=== PATIENT | male | born 1965 | race Caucasian/White ===

== ENCOUNTER 2021-01-18 13:58 | Outpatient (REF) | payer OTHER, SELFPAY | END 2021-01-18 13:59 | disposition home or self-care (01) | LOC: HO.LNP 13:58 | PROVIDERS: Visit Provider Hospitalist | DX: Z20.822 Contact with and (suspected) exposure to COVID-19 (principal); B34.9 Viral infection, unspecified | CPT/HCPCS: U0003; U0005 ==

== ENCOUNTER 2021-03-10 15:47 | Outpatient (REF) | payer OTHER, SELFPAY ==
[2021-03-10 16:37] LABS: MANUAL DIFF FLAG NO
[2021-03-10 17:02] LABS: Basophils Absolute Auto 0.1 X10*3/uL (0.0-0.2); Basophils Percent Auto 0.6 % (0-2); Eosinophils Absolute Auto 0.1 X10*3/uL (0.0-0.4); Eosinophils Percent Auto 1.7 % (0-4); Hematocrit 45.1 % (42-52); Hemoglobin 15.3 g/dl (14.0-18.0); Imm Gran Abs Auto 0.02 X10*3/uL (0.00-0.03); Imm Gran Pct Auto 0.2 % (0.0-0.4); Lymphocytes Absolute Auto 1.9 X10*3/uL (1.2-4.9); Lymphocytes Percent Auto 23.6 % (20-40); Mean Corpuscular HGB Conc 33.9 g/dl (31.0-36.0); Mean Corpuscular Hemoglobin 30.3 pg (27.0-33.0); Mean Corpuscular Volume 89.3 fL (80-98); Mean Platelet Volume 8.8 fL (9.4-12.4); Monocytes Absolute Auto 0.8 X10*3/uL (0.1-1.2); Neutrophils Absolute Auto 5.1 X10*3/uL (2.0-8.3); Neutrophils Percent Auto 63.9 % (45-73); Platelet Count 260 X10*3/uL (160-400); Red Blood Count 5.05 X10*6/uL (4.60-5.80); Red Cell Distribution Width 11.9 % (11.0-16.0)
[2021-03-10 17:26] LABS: Alanine Aminotransferase 21 U/L (0-40); Albumin Level 4.5 g/dL (3.5-5.0); Alkaline Phosphatase 56 U/L (39-117); Amylase 63 U/L (28-100); Anion Gap 11 (12-20); Aspartate Amino Transferase 24 U/L (5-37); Bilirubin Total 0.5 mg/dL (0.0-1.0); Blood Urea Nitrogen 14 mg/dL (9-16); Calcium 9.6 mg/dL (8.4-10.2); Carbon Dioxide 28 mmol/L (22-29); Chloride 102 mmol/L (96-108); Estimated Glomerular Filt Rate > 60; Glucose Random 103 mg/dL (60-115); Lipase 24 U/L (8-78); Potassium 4.1 mmol/L (3.3-5.1); Sodium 137 mmol/L (135-145); Total Protein 7.6 g/dL (6.5-8.0)
== END 2021-03-10 15:48 | disposition home or self-care (01) ==
LOC: HO.LAB 15:47
PROVIDERS: PCP Nurse Practitioner Family; Referring Provider Nurse Practitioner Family; Visit Provider Nurse Practitioner
DX: R10.13 Epigastric pain (principal); R14.0 Abdominal distension (gaseous)
CPT/HCPCS: 36415; 80053; 82150; 83690; 85025

== ENCOUNTER 2021-03-12 08:24 | Outpatient (REF) | payer OTHER, SELFPAY | END 2021-03-12 08:25 | disposition home or self-care (01) | LOC: HO.LNP 08:24 | PROVIDERS: Visit Provider Nurse Practitioner | DX: R10.13 Epigastric pain (principal) | CPT/HCPCS: 87338 ==

== ENCOUNTER 2021-03-31 08:15 | Outpatient (REF) | payer OTHER, SELFPAY ==
--- NOTE | ~2021-03-31 | US_ITS ---
EXAMINATION: US ABDOMEN COMPLETE CLINICAL INFORMATION: Epigastric pain. COMPARISON: Ultrasound abdomen 02/24/[address] of the abdomen and pelvis February 2019. TECHNIQUE: Real-time imaging of the abdominal viscera. FINDINGS: PANCREAS: Not well visualized due to bowel gas ABDOMINAL AORTA: The proximal, mid, and distal segments are normal in caliber. INFERIOR VENA CAVA: Visualized portions are normal. LIVER: Normal. The liver is normal in size. The liver contour is normal. Parenchymal echogenicity is normal. No focal hepatic lesion. There is no intrahepatic biliary duct dilatation seen. GALLBLADDER: Normal. The gallbladder is physiologically distended without evidence of stones, sludge, polyps, wall thickening or pericholecystic fluid. COMMON BILE DUCT: Normal in caliber measuring 0.3 cm in diameter. RIGHT KIDNEY: There is a small cyst exophytic to the midpole measuring 9 x 5 x 8 mm. No hydronephrosis or renal calculi. The kidney measures 11.4 cm in maximum dimension. LEFT KIDNEY: Normal. No hydronephrosis. No renal calculi or focal parenchymal lesions. The kidney measures 12.0 cm in maximum dimension. SPLEEN: Normal. The spleen measures 10.1 cm in maximum dimension. FREE FLUID: None. US/US abdomen complete IMPRESSION: Small right renal cyst otherwise unremarkable exam
== END 2021-03-31 08:16 | disposition home or self-care (01) ==
LOC: HO.US 08:15
PROVIDERS: PCP Nurse Practitioner Family; Visit Provider Nurse Practitioner
DX: R10.13 Epigastric pain (principal)
CPT/HCPCS: 76700

== ENCOUNTER → 2021-04-18 15:53 | Outpatient (BNVA) | payer OTHER, SELFPAY | PROVIDERS: PCP Nurse Practitioner Family; Visit Provider Nurse Practitioner ==

== ENCOUNTER 2021-05-12 05:58 | Outpatient (REF) | payer OTHER, SELFPAY ==
[2021-05-12 11:24] LABS: Appearance Urine CLEAR; Color Urine YELLOW; Glucose Urine UA NEG (NEG); Leukocyte Esterase Urine NEG (NEG); Nitrite Urine NEG (NEG); Specific Gravity - Urine 1.025 (1.005-1.025); UACC Culture Trigger NO; Urine Blood TRACE (NEG); Urine Ketones NEG (NEG); Urine Protein NEG (NEG-TRACE)
[2021-05-12 12:11] LABS: TSH reflex Free T4 1.85 uIU/mL (0.32-4.0)
[2021-05-12 12:26] LABS: Alanine Aminotransferase 25 U/L (0-40); Albumin Level 4.2 g/dL (3.5-5.0); Alkaline Phosphatase 56 U/L (39-117); Anion Gap 10 (12-20); Aspartate Amino Transferase 26 U/L (5-37); Bilirubin Total 0.7 mg/dL (0.0-1.0); Blood Urea Nitrogen 15 mg/dL (9-16); Calcium 9.5 mg/dL (8.4-10.2); Carbon Dioxide 26 mmol/L (22-29); Chloride 106 mmol/L (96-108); Cholesterol 221 mg/dL; Estimated Glomerular Filt Rate > 60; Glucose Fasting 98 mg/dL (60-99); HDL Cholesterol 51 mg/dL; LDL Cholesterol Calculated 143 mg/dl; Potassium 4.3 mmol/L (3.3-5.1); Sodium 138 mmol/L (135-145); Triglycerides 136 mg/dL
[2021-05-12 12:48] LABS: Prostate Specific Antigen Scr 0.36 ng/mL (<0.05-4.0)
[2021-05-12 13:27] LABS: RBC Urine 0-2 /HPF (0); WBC Urine 0 /HPF (0-4)
== END 2021-05-12 05:59 | disposition home or self-care (01) ==
LOC: HO.HMGCLDS 05:58
PROVIDERS: PCP Nurse Practitioner Family; Visit Provider Nurse Practitioner Family
DX: Z00.00 Encounter for general adult medical examination without abnormal findings (principal); Z12.5 Encounter for screening for malignant neoplasm of prostate
CPT/HCPCS: 36415; 80053; 80061; 81001; 84153; 84443

== ENCOUNTER 2022-02-14 09:51 | Outpatient (REF) | payer OTHER, SELFPAY ==
--- NOTE | ~2022-02-14 | XR_ITS ---
EXAMINATION: XR CERVICAL SPINE CLINICAL INFORMATION: M50.90 - Cervical disc disorder, unspecified, unspecified cervical region COMPARISON: None. TECHNIQUE: 3 views of the cervical spine were obtained. FINDINGS: There is mild straightening cervical lordosis. Vertebral bodies are normal in height. The odontoid appears intact. There is no cervical vertebral compression, spondylolisthesis, or prevertebral soft tissue swelling. There are mild degenerative disc changes C5-C6 and C6-C7 with mild disc narrowing. Partially bridging anterior osteophytes are present at this level and borderline posterior osteophytes. No erosive change. No perched facet. XR/XR cervical spine 3V IMPRESSION: Degenerative disc changes C5-C6 and C6-C7.
== END 2022-02-14 09:52 | disposition home or self-care (01) ==
LOC: HO.HMGCX 09:51
PROVIDERS: PCP Nurse Practitioner Family; Visit Provider Nurse Practitioner Family
DX: M50.90 Cervical disc disorder, unspecified, unspecified cervical region (principal)
CPT/HCPCS: 72040

== ENCOUNTER 2022-04-13 11:00 | Outpatient (RCR) | payer OTHER, SELFPAY ==
--- NOTE | 2022-03-07 18:45 | MHC.PT.EP ---
[facility] [place] Office [place] Office [place] Office [address] [phone] F: [phone] F: [phone] F: [phone] F: [phone] Physical Therapy Plan of Care Date of Evaluation: Date of Surgery: Diagnosis: Cervical disc disorder. 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 Pt is deemed an appropriate candidate to receive skilled PT in order to address his physical limitations to improve his functional ability. Frequency and Duration: The patient will be seen 2 x / wk x 5 wks . Short Term Goals: Initiate HEP. Centralized symptoms achieved. 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 Pt will no longer be disturbed of sleep d/t cervical pain; initial 2-3 hours disturbed. symmetrical cervical rotation achieved. Pt will report I am able to do my normal work but no more ; initial: I cannot perform my normal work tasks . (NDI) Treatment Plan: Modalities to reduce pain, spasms and effusion. Manual therapy to restore motion and function. Therapeutic exercise to improve strength and flexibility. Neuromuscular re-education for posture and balance. Therapeutic activities to return to functional activities of daily living. Electronically signed by: Anatoliy Segura PT. Please sign and return to therapist. Thank you for your referral.
--- NOTE | 2022-04-13 13:51 | MHC.PT.DC ---
[facility] [place] Office [place] Office [place] Office [address] Bk [address] [phone] F: [phone] F: [phone] F: [phone] F: [phone] Physical Therapy Discharge Report Diagnosis: Cervical disc disorder. Date of Surgery: Date of Evaluation: 03/07/22 Date of Discharge: 04/13/22 Treatments to Date: 10 Cancellations to Date: No Shows to Date: Discharge Status: Achieved Goals Improved Function Independent with HEP Discharge Summary: 04/13: Ramin has been an active participant in his therapy in and out of the clinic. He is in agreement with DC at this time as his cervical and radicular symptoms, as well as MORALES symptoms have all been abolished for the past few weeks. His neck outcome measure improved from 44% disability to 4%. Note: although L arm radicular symptoms have been abolished as well as his scapular pain he does continue to report popping/clicking and a sense of instability likely not related to his cervical issue which he may seek medical management for in the future. Electronically signed by: Anatoliy Segura PT. Please sign and return to therapist. Thank you for your referral.
== END 2022-04-13 13:52 | disposition home or self-care (01) ==
LOC: HO.PTCHIC 11:00
PROVIDERS: PCP Nurse Practitioner Family; Visit Provider Nurse Practitioner Family
DX: M50.90 Cervical disc disorder, unspecified, unspecified cervical region (principal)
CPT/HCPCS: 97110; 97161

== ENCOUNTER 2022-06-27 07:04 | Outpatient (REF) | payer OTHER, SELFPAY ==
[2022-06-27 11:27] LABS: Urine Cytology See Pathology rpt
[2022-06-27 11:35] LABS: Appearance Urine Clear; Color Urine Yellow; Glucose Urine UA Negative (Negative); Leukocyte Esterase Urine Negative (Negative); Nitrite Urine Negative (Negative); PH 5.5 (5.0-9.0); Specific Gravity - Urine 1.015 (1.005-1.025); Urine Blood Negative (Negative); Urine Ketones Negative (Negative); Urine Protein Negative (Neg-Trace)
[2022-06-27 11:39] LABS: MANUAL DIFF FLAG NO
[2022-06-27 11:54] LABS: Basophils Percent Auto 0.6 % (0-2); Eosinophils Absolute Auto 0.1 X10*3/uL (0.0-0.4); Eosinophils Percent Auto 1.7 % (0-4); Hematocrit 44.6 % (42.0-52.0); Hemoglobin 15.2 g/dl (14.0-18.0); Imm Gran Abs Auto 0.01 X10*3/uL (0.00-0.03); Imm Gran Pct Auto 0.2 % (0.0-0.4); Lymphocytes Absolute Auto 2.3 X10*3/uL (1.2-4.9); Lymphocytes Percent Auto 35.5 % (20-40); Mean Corpuscular HGB Conc 34.1 g/dl (31.0-36.0); Mean Corpuscular Hemoglobin 30.3 pg (27.0-33.0); Mean Platelet Volume 9.6 fL (9.4-12.4); Monocytes Absolute Auto 0.5 X10*3/uL (0.1-1.2); Monocytes Percent Auto 8.4 % (2-11); Neutrophils Absolute Auto 3.4 x10*3/uL (2.0-8.3); Neutrophils Percent Auto 53.6 % (45-73); Platelet Count 224 X10*3/uL (160-400); Red Blood Count 5.01 X10*6/uL (4.60-5.80); Red Cell Distribution Width 12.9 % (11.0-16.0); White Blood Count 6.3 X10*3/uL (4.8-10.8)
[2022-06-27 12:23] LABS: Alanine Aminotransferase 27 U/L (0-40); Albumin Level 4.3 g/dL (3.5-5.0); Alkaline Phosphatase 61 U/L (39-117); Anion Gap 13 (12-20); Aspartate Amino Transferase 30 U/L (5-37); Bilirubin Total 0.5 mg/dL (0.0-1.0); Blood Urea Nitrogen 11 mg/dL (9-16); Calcium 9.5 mg/dL (8.4-10.2); Carbon Dioxide 25 mmol/L (22-29); Chloride 106 mmol/L (96-108); Cholesterol 262 mg/dL; Estimated Glomerular Filt Rate > 60; Glucose Fasting 91 mg/dL (60-99); HDL Cholesterol 51 mg/dL; LDL Cholesterol Calculated 182 mg/dl; Potassium 4.1 mmol/L (3.3-5.1); Sodium 140 mmol/L (135-145); Total Protein 7.3 g/dL (6.5-8.0); Triglycerides 148 mg/dL
[2022-06-27 12:27] LABS: Prostate Specific Antigen Scr 0.25 ng/mL (<0.05-4.0); TSH reflex Free T4 4.55 uIU/mL (0.32-4.0)
[2022-06-27 13:05] LABS: Free T4 (Free Thyroxine) 1.11 ng/dL (0.71-1.85)
== END 2022-06-27 07:05 | disposition home or self-care (01) ==
LOC: HO.HMGCLDS 07:04
PROVIDERS: PCP Nurse Practitioner Family; Visit Provider Nurse Practitioner Family
DX: Z00.00 Encounter for general adult medical examination without abnormal findings (principal); Z12.5 Encounter for screening for malignant neoplasm of prostate; R31.29 Other microscopic hematuria
CPT/HCPCS: 36415; 80053; 80061; 81003; 84153; 84439; 84443; 85025; 87086; 88112

== ENCOUNTER 2022-08-31 06:30 | Outpatient (REF) | payer OTHER, SELFPAY ==
[2022-08-31 12:12] LABS: Cholesterol 202 mg/dL; HDL Cholesterol 50 mg/dL; LDL Cholesterol Calculated 122 mg/dl; Triglycerides 154 mg/dL
[2022-08-31 12:29] LABS: TSH reflex Free T4 2.61 uIU/mL (0.32-4.0)
[2022-09-02 03:34] LABS: Thyroid Peroxidase Antibodies >900 IU/mL (<9)
== END 2022-08-31 06:31 | disposition home or self-care (01) ==
LOC: HO.HMGCLDS 06:30
PROVIDERS: PCP Nurse Practitioner Family; Visit Provider Nurse Practitioner Family
DX: R79.89 Other specified abnormal findings of blood chemistry (principal); E78.9 Disorder of lipoprotein metabolism, unspecified
CPT/HCPCS: 36415; 80061; 84443; 86376

== ENCOUNTER 2022-10-16 15:28 | Outpatient (REF) | payer OTHER, SELFPAY ==
--- NOTE | ~2022-10-16 | XR_ITS ---
EXAMINATION: XR FINGER, LEFT CLINICAL INFORMATION: Effusion COMPARISON: None available. TECHNIQUE: Three views of the left fourth finger. FINDINGS: Bone alignment is normal. No fracture or dislocation. Normal joint spaces. Soft tissue swelling adjacent to the PIP joint. XR/XR finger LT min 2V IMPRESSION: Soft tissue swelling. No fracture or dislocation.
== END 2022-10-16 15:29 | disposition home or self-care (01) ==
LOC: HO.HMGCX 15:28
PROVIDERS: PCP Nurse Practitioner Family; Visit Provider Nurse Practitioner Family
DX: M25.442 Effusion, left hand (principal); T14.8XXA Other injury of unspecified body region, initial encounter; X58.XXXA Exposure to other specified factors, initial encounter; Y93.9 Activity, unspecified; Y92.9 Unspecified place or not applicable; Y99.9 Unspecified external cause status
CPT/HCPCS: 73140

== ENCOUNTER 2022-12-25 08:41 | Outpatient (AMB) | payer OTHER, SELFPAY ==
[2022-12-25 08:44] VITALS: BP 110/70; PULSE 62; O2SAT 98; BMI 27.4
--- NOTE | 2022-12-25 08:44 | A.OFFPC_ITS ---
Vital Signs 12/25/22 08:44 Height 5 ft 9 in Weight 185 lb 8 oz BMI 27.4 BP 110/70 Blood Pressure Location Lt brachial Position Sitting Pulse 62 Pulse Source Pulse Oximeter Pulse Oximetry (%) 98 Oxygen Delivery Method Room Air Intake Visit Reasons: 6m follow up Allergies statins Adverse Reaction (Intermediate, Uncoded 12/25/22 08:48) Muscle aches Medication List - Last Reconciled 12/25/22 by STIVEN Felix cholecalciferol (vitamin D3) 50 mcg PO DAILY colesevelam (WelChol) 1,250 mg (2 x 625 mg) PO BID 90 days ezetimibe 10 mg PO DAILY ibuprofen 800 mg PO TID PRN 30 days lisinopril 40 mg PO DAILY 90 days Tobacco use date assessed: 12/25/22 Dental Screening Dental Screen Date: 12/25/22 Did you have a dental visit in the last 12 months?: Yes Did you have a dental problem in the last 6 months where you did not have access to dental care?: No Was dental information given to patient?: Patient has dentist HPI 6m follow up HPI Details Pt reports ongoing left chest discomfort. He reports that this is intermittent. Pt reports that when he stretches the pain is worse. He denies any radicular symptoms. EKG in office today was benign. Will order echo and nuclear stress test. Denies shortness of breath, headache, and dizziness. Pt c/o joint pain and swelling in his bilat hands. Will order xr's and labs (autoimmune/inflammatory markers). Dyslipidemia: Will order labs. Hx of elevated TSH, will order labs to watch this (+ antibodies). PFSH Medical History Chronic pain High cholesterol Surgical History H/O colonoscopy Social History Housing: House Patient Tobacco Use Status: Former Tobacco user Years Smoked: 30 years ago e-Cigarette/Vaping Use: Never Used Second Hand Smoke Exposure: No service: No Current occupational status: employed and unemployed Current occupational exposures/hazards: No Cognitive needs: No Hearing needs: No Vision needs: No Questionnaire Thrive Questionnaire Date Thrive assessed: 06/21/22 EFREN-7 AMB Questionnaire EFREN-7 Date EFREN - 7 assessed: 06/21/22 Source: Developed by Drs. Gigi Chapman, Danii Erazo, Regis Urbina and colleagues, with an educational rosa from [employer]. Review of Systems Const Reports as per HPI Physical exam (Primary Care) Vital Signs: Last Vital Signs Pulse 62 12/25/22 08:44 BP 110/70 12/25/22 08:44 Pulse Ox 98 12/25/22 08:44 Oxygen Delivery Method Room Air 12/25/22 08:44 BMI result Body Mass Index 27.4 Tobacco/Smoking Status: Tobacco use Status Tobacco use date assessed 12/25/22 12/25/22 08:51 Patient Tobacco Use Status Former Tobacco user 12/25/22 08:51 e-Cigarette/Vaping Use Never Used 12/25/22 08:51 Thrive Assessment: Date of Thrive Assessment Date Thrive assessed 06/21/22 12/25/22 08:51 Const General: cooperative Orientation/consciousness: patient oriented x3 Resp Effort & Inspection: normal respiratory effort Auscultation: clear to auscultation bilaterally Cardio Rate: regular rate Rhythm: regular rhythm Heart sounds: S1 normal heart sound present and S2 normal heart sound present Neuro General: patient oriented x3 Extrem Other: PIP joints of bilat hands swollen. able to flex and extend all fingers with some discomfort to PIP joints Psych Appearance: grossly normal Mental Status: mental status grossly normal Speech and movement: Normal speech and movement present Affect: normal affect Attitude: cooperative Thought process: Normal thought process present Thought content: Normal thought content present Insight: Good insight present (Psych) Judgement: Good judgement present (Psych) Assessment and Plan Assessment & Plan (1) Chest discomfort: Code(s): R07.89 - Other chest pain Plan: Echo and stress test ordered (2) Elevated TSH: Code(s): R79.89 - Other specified abnormal findings of blood chemistry Plan: Labs ordered (3) Joint pain in fingers of both hands: Code(s): M25.541 - Pain in joints of right hand; M25.542 - Pain in joints of left hand Plan: Labs and xr's ordered (4) Lipid disorder: Code(s): E78.9 - Disorder of lipoprotein metabolism, unspecified Plan: Labs ordered Plan The patient agreed to the use of a clinical laboratory medical director for this encounter. [facility] by Thalia Santiago clinical laboratory medical director, on 12/25/2022 at 08:55 EST. Orders: Orders CA echo transthoracic complete Today R07.89 - Other chest pain CA stress test Today R07.89 - Other chest pain NM cardiolite stress test Today R07.89 - Other chest pain Comprehensive Met. Panel Today R79.89 - Other specified abnormal findings of blood chemistry TSH reflex Free T4 Today R79.89 - Other specified abnormal findings of blood chemistry UA CC w/rflx Micro + Cult Today R79.89 - Other specified abnormal findings of blood chemistry Cyclic Citrullinated Peptide Today M25.541 - Pain in joints of right hand, M25.542 - Pain in joints of left hand C Reactive Protein Today M25.541 - Pain in joints of right hand, M25.542 - Pain in joints of left hand Rheumatoid Factor Today M25.541 - Pain in joints of right hand, M25.542 - Pain in joints of left hand Erythrocyte Sedimentation Rate Today M25.541 - Pain in joints of right hand, M25.542 - Pain in joints of left hand SERA Reflex Titer and Pattern Today M25.541 - Pain in joints of right hand, M25.542 - Pain in joints of left hand Sjogren's Antibodies Today M25.541 - Pain in joints of right hand, M25.542 - Pain in joints of left hand XR hand LT 2V Today M25.541 - Pain in joints of right hand, M25.542 - Pain in joints of left hand XR hand RT 2V Today M25.541 - Pain in joints of right hand, M25.542 - Pain in joints of left hand Lipid Panel Today E78.9 - Disorder of lipoprotein metabolism, unspecified Tick-borne Disease Molecular Today M25.541 - Pain in joints of right hand, M25.542 - Pain in joints of left hand Medications: Refilled ezetimibe 10 mg PO DAILY 90 tabs 1RF colesevelam (WelChol) 1,250 mg (2 x 625 mg) PO BID 360 tabs 0RF 90 days Coding Level of Care Code Est Pt Level 3 (30576) Diagnoses Chest discomfort R07.89 Elevated TSH R79.89 Joint pain in fingers of both hands M25.541; M25.542 Lipid disorder E78.9
== END 2022-12-25 12:45 | disposition home or self-care (01) ==
PROVIDERS: Visit Provider Nurse Practitioner Family
DX: R07.89 Other chest pain (principal); R79.89 Other specified abnormal findings of blood chemistry; M25.541 Pain in joints of right hand; M25.542 Pain in joints of left hand; E78.9 Disorder of lipoprotein metabolism, unspecified
CPT/HCPCS: 99213

== ENCOUNTER 2023-01-08 06:06 | Outpatient (REF) | payer OTHER, SELFPAY ==
--- NOTE | ~2023-01-08 | XR_ITS ---
EXAMINATION: XR BILATERAL HANDS CLINICAL INFORMATION: Bilateral hand pain in joints of hand COMPARISON: 10/16/2022 left fourth digit TECHNIQUE: PA, oblique and lateral views of bilateral hands FINDINGS: LEFT HAND: Moderate degenerative changes first carpometacarpal joint with joint space narrowing and hypertrophic change. Bone mineralization is normal. Mild hypertrophic change in scattered IP joints. RIGHT HAND: Moderate degenerative changes first carpometacarpal joint with joint space narrowing and hypertrophic change. Bone mineralization is normal. Mild hypertrophic change in scattered IP joints. XR/XR hand LT 2V IMPRESSION: Moderate degenerative changes in the bilateral first carpometacarpal joints. Mild hypertrophic change in scattered bilateral IP joints. Recommend follow-up imaging in 10-14 days if fracture is suspected.
--- NOTE | ~2023-01-08 | XR_ITS ---
EXAMINATION: XR BILATERAL HANDS CLINICAL INFORMATION: Bilateral hand pain in joints of hand COMPARISON: 10/16/2022 left fourth digit TECHNIQUE: PA, oblique and lateral views of bilateral hands FINDINGS: LEFT HAND: Moderate degenerative changes first carpometacarpal joint with joint space narrowing and hypertrophic change. Bone mineralization is normal. Mild hypertrophic change in scattered IP joints. RIGHT HAND: Moderate degenerative changes first carpometacarpal joint with joint space narrowing and hypertrophic change. Bone mineralization is normal. Mild hypertrophic change in scattered IP joints. XR/XR hand RT 2V IMPRESSION: Moderate degenerative changes in the bilateral first carpometacarpal joints. Mild hypertrophic change in scattered bilateral IP joints. Recommend follow-up imaging in 10-14 days if fracture is suspected.
[2023-01-08 11:55] LABS: Appearance Urine Turbid; Color Urine Dark Yellow; Glucose Urine UA Negative (Negative); Leukocyte Esterase Urine Negative (Negative); Nitrite Urine Negative (Negative); PH 5.5 (5.0-9.0); UMIC TRIGGER UACC YES; Urine Blood Trace (Negative); Urine Ketones Trace mg/dL (Negative); Urine Protein Negative (Neg-Trace)
[2023-01-08 11:58] LABS: Bacteria Urine None Seen (None Seen); Hyaline Casts Urine 0-2 /LPF (0-2); Squamous Epithelial Cell Urine 0-2 /HPF (0-2); WBC Urine 0-5 /HPF (0-5)
[2023-01-08 12:51] LABS: Alanine Aminotransferase 26 U/L (0-40); Albumin Level 4.3 g/dL (3.5-5.0); Alkaline Phosphatase 60 U/L (39-117); Anion Gap 11 (12-20); Aspartate Amino Transferase 24 U/L (5-37); Bilirubin Total 0.9 mg/dL (0.0-1.0); Blood Urea Nitrogen 12 mg/dL (9-16); C Reactive Protein < 0.10 mg/dL (< or = 0.50); Calcium 9.9 mg/dL (8.4-10.2); Carbon Dioxide 26 mmol/L (22-29); Chloride 107 mmol/L (96-108); Cholesterol 212 mg/dL; Estimated Glomerular Filt Rate > 60; Glucose Random 103 mg/dL (60-115); HDL Cholesterol 47 mg/dL; LDL Cholesterol Calculated 134 mg/dl; Potassium 4.1 mmol/L (3.3-5.1); Sodium 140 mmol/L (135-145); Total Protein 7.7 g/dL (6.5-8.0); Triglycerides 156 mg/dL
[2023-01-08 12:55] LABS: TSH reflex Free T4 2.95 uIU/mL (0.32-4.0)
[2023-01-08 13:01] LABS: Erythrocyte Sedimentation Rate 2 MM/HR (0-15)
[2023-01-08 13:25] LABS: Rheumatoid Factor < 13.0 IU/mL (<15.0)
[2023-01-09 11:29] LABS: Cyclic Citrullinated Peptide <16 UNITS
[2023-01-09 18:23] LABS: Antibody to SS-A Antigen <1.0 NEG AI (<1.0 NEG); Antibody to SS-B Antigen <1.0 NEG AI (<1.0 NEG)
[2023-01-09 23:48] LABS: A. Phagocytphilium DNA,RT-PCR NOT DETECTED (NOT DETECTED); Babesia Microti DNA, RT-PCR NOT DETECTED (NOT DETECTED); Borrelia Miyamotoi,DNA RT-PCR NOT DETECTED (NOT DETECTED); E.Chaffeensis DNA RT-PCR NOT DETECTED (NOT DETECTED); Lyme(Borrelia ssp)DNA RT-PCR NOT DETECTED (NOT DETECTED)
[2023-01-12 13:18] LABS: Anti Nuclear Antibody Screen NEGATIVE (NEGATIVE)
== END 2023-01-08 06:07 | disposition home or self-care (01) ==
LOC: HO.HMGCX 06:06
PROVIDERS: PCP Nurse Practitioner Family; Visit Provider Nurse Practitioner Family
DX: M25.541 Pain in joints of right hand (principal); M25.542 Pain in joints of left hand; R79.89 Other specified abnormal findings of blood chemistry; E78.9 Disorder of lipoprotein metabolism, unspecified
CPT/HCPCS: 36415; 73120; 80053; 80061; 81001; 84443; 85652; 86038; 86140; 86200; 86235; 86431; 87798; 87801

== ENCOUNTER 2023-01-17 15:16 | Outpatient (REF) | payer OTHER, SELFPAY ==
--- NOTE | ~2023-01-17 | US_ITS ---
EXAMINATION: US RETROPERITONEAL COMPLETE (RENAL) CLINICAL INFORMATION: Microscopic hematuria. COMPARISON: Ultrasound abdomen complete 03/31/2021 and 02/24/2019. CT abdomen and pelvis 03/26/2019. TECHNIQUE: Real-time imaging of the kidneys and bladder. FINDINGS: RIGHT KIDNEY: 11.9 x 6.2 x 6.8 cm (SAG x AP x TRV). The kidney is normal in size, contour, and echogenicity. Renal cortical thickness is normal. No calculi or focal parenchymal lesions. No hydronephrosis. LEFT KIDNEY: 11.2 x 6.8 x 6.4 cm (SAG x AP x TRV). The kidney is normal in size, contour, and echogenicity. Renal cortical thickness is normal. No calculi or focal parenchymal lesions. No hydronephrosis. BLADDER: The bladder wall is mildly thickened and trabeculated. Bilateral ureteral jets are demonstrated. Prevoid bladder volume is 198 mL. Postvoid bladder volume is 36.8 mL. Prostate volume 24.2 mL. US/US retroperitoneal comp IMPRESSION: 1. Normal-appearing kidneys. 2. Mildly thickened trabeculated bladder wall.
== END 2023-01-17 15:17 | disposition home or self-care (01) ==
LOC: HO.HMGCX 15:16
PROVIDERS: Visit Provider Nurse Practitioner Family
DX: R31.29 Other microscopic hematuria (principal)
CPT/HCPCS: 76770

== ENCOUNTER 2023-02-09 12:22 | Outpatient (AMB) | payer OTHER, SELFPAY ==
[2023-02-09 12:36] VITALS: BP 130/72; PULSE 65; TEMP 36.1; O2SAT 95; BMI 27.1
--- NOTE | 2023-02-09 12:36 | MHC.OFFWIV ---
Intake Vital Signs 02/09/23 12:36 Height 5 ft 9 in Weight 83.234 kg BMI 27.1 BP 130/72 Blood Pressure Location Rt brachial Position Sitting Pulse 65 Pulse Source Pulse Oximeter Temp 96.9 F Temp Source Temporal Artery Scan Pulse Oximetry (%) 95 Oxygen Delivery Method Room Air Intake Visit Reasons: EST/right foot bump on big toe Intake Note: Pt is here c/o right foot pain. Pt states he has a bump on his big toe. Patient Tobacco Use Status: Former Tobacco user Allergies statins Adverse Reaction (Intermediate, Uncoded 02/09/23 12:36) Muscle aches HPI HPI Comments History of Present Illness Details 1300 57-year-old male presents with discomfort to right tell intermittently for the past month, he reports he feels like there may be a bump to his right great toe, atraumatic in nature. Sore feeling intermittently however feels fine now he just wanted to get checked out. He reports he has arthritis everywhere. And bone spurs. He is not sure if he has went to his toe. Denies fevers, chills, numbness, tingling. Physical exam benign Likely arthritis versus inflammatory arthritis. Unlikely gout, pseudogout, septic joint. Unlikely fracture, dislocation Plan imaging ortho consult if necessary. Educated patient on diagnosis and treatment plan, answered all question, patient verbalizes understanding. At this time patient will be discharged home, advised to return with new or worsening symptoms. Educated on worrisome signs and symptoms and when to return. At this time I feel comfortable discharge home. PFSH Medical History Chronic pain High cholesterol Surgical History H/O colonoscopy Social History Housing: House Patient Tobacco Use Status: Former Tobacco user Years Smoked: 30 years ago e-Cigarette/Vaping Use: Never Used Second Hand Smoke Exposure: No service: No Current occupational status: employed and unemployed Current occupational exposures/hazards: No Cognitive needs: No Hearing needs: No Vision needs: No Review of Systems Const Details: Constitutional : No Weight loss, No Fever, No Chills, No Fatigue, No Malaise ENT/Mouth : No sore throat, No Rhinorrhea Eyes: No Eye Pain, No Swelling, No Redness Cardiovascular : No Chest Pain, No SOB, No Dyspnea on Exertion, No Orthopnea, No Edema, No Palpitations Respiratory : No Cough, No Sputum, No Wheezing Gastrointestinal : No Nausea, No Vomiting, No Diarrhea, No Constipation, No abdominal Pain, No Hematochezia, No Melena Genitourinary : No Dysuria, No Urinary Frequency, No Hematuria, Musculoskeletal : + joint pain, No Myalgias, + Joint Swelling Skin : No Skin Lesions, No rash Neuro : No Weakness, No Numbness, No Dizziness, No Headache Psych : No Anxiety/Panic, No Depression All other systems reviewed and are negative All systems reviewed & are unremarkable except as noted in HPI and below Physical Exam Vital Signs: Last Vital Signs Temp 96.9 F 02/09/23 12:36 Pulse 65 02/09/23 12:36 BP 130/72 02/09/23 12:36 Pulse Ox 95 02/09/23 12:36 Oxygen Delivery Method Room Air 02/09/23 12:36 BMI result Body Mass Index 27.1 Vital signs stable Appearance: Alert.? Oriented X3.? No acute distress.? Head: Normocephalic, atraumatic, no step-offs or deformities Eyes: Pupils equal, round and reactive to light.? CVS: Normal heart rate and rhythm.? Pulses normal.? Respiratory: No respiratory distress.? Breath sounds normal.? Abdomen: Soft and nontender.? Skin: Skin warm and dry.? Normal skin color.? Normal skin turgor.? Extremities: No lower extremity edema.? No calf ttp. 5/5 strength to bilateral upper and lower extremities. Normal toes bilaterally. 2+ dorsalis pedis, anterior tib and posterior tibialis pulses equal bilateral Neuro: Oriented X 3.? No motor deficit.? No sensory deficit. CN 2-12 intact Assessment & Plan Assessment & Plan (1) Pain of right great toe: Code(s): M79.674 - Pain in right toe(s) Plan Take your medications as prescribed. If you were prescribed antibiotics today, it is important that you take your medication to their entirety, do not skip any doses, do not finish them early. Follow-up with your primary care provider this week. Return to the emergency department with new or worsening symptoms. Such as fevers, chills, chest pain, shortness of breath, nausea, vomiting, dizziness, headache, vision changes, lethargy In case of emergency call 911 Orders: Orders XR toe RT min 2V Today M79.676 - Pain in unspecified toe(s) Medications: New prednisone 20 mg PO DAILY 5 tabs 0RF 5 days Coding Level of Care Code Est Pt Level 3 (72976) Diagnoses Pain of right great toe M79.672
== END 2023-02-09 13:27 | disposition home or self-care (01) ==
PROVIDERS: PCP Nurse Practitioner Family; Visit Provider Physician Assistant
DX: M79.674 Pain in right toe(s) (principal)
CPT/HCPCS: 99213

== ENCOUNTER 2023-02-09 12:44 | Outpatient (REF) | payer OTHER, SELFPAY ==
--- NOTE | ~2023-02-09 | XR_ITS ---
EXAMINATION: XR TOES, RIGHT CLINICAL INFORMATION: Pain COMPARISON: None available. TECHNIQUE: 3 views of the right toes were obtained. FINDINGS: There are bony densities involving the interphalangeal joint ventrally. This may represent sequela of previous injury. It would be difficult to rule out an acute avulsion but I suspect this may be due to old injury. There is no evidence of malalignment. XR/XR toe RT min 2V IMPRESSION: Bony densities as described ventrally at the interphalangeal joint space may be the sequela of previous injury or represent underlying joint disease/degeneration. There is been history of acute trauma fracture cannot be completely excluded here. If further evaluation is warranted consider MR
== END 2023-02-09 12:45 | disposition home or self-care (01) ==
LOC: HO.HMGCX 12:44
PROVIDERS: PCP Nurse Practitioner Family; Visit Provider Physician Assistant
DX: M79.674 Pain in right toe(s) (principal)
CPT/HCPCS: 73660

== ENCOUNTER → 2023-02-12 07:49 | Outpatient (REF) | payer OTHER, SELFPAY ==
--- NOTE | ~2023-02-12 | NM_ITS ---
EXERCISE MYOCARDIAL PERFUSION STUDY INDICATION: Chest pain, assess for coronary disease and ischemia TECHNIQUE: The patient was brought in for an exercise perfusion study on 02/12/2023. Patient performed exercise as per Amado protocol and was injected 25 mCi of sestamibi once target heart rate was achieved. Images were obtained using the SPECT gamma camera interlaced with the gating device. Images were obtained in supine position. Resting perfusion study was performed on 02/14/2023. Patient was administered 25 mCi of sestamibi intravenously at rest. Images were then obtained in supine position. Images were processed with the software and compared side to side in short axis, horizontal long axis and vertical long axis views. Total DLP 85mGy-cm. FINDINGS: Raw images were reviewed. The stress perfusion study showed no significant perfusion abnormality. Both uncorrected as well as CT attenuation corrected images were reviewed. The gated study shows normal LV systolic function with calculated LVEF of 72%. LV cavity is normal in size. The gated study shows normal wall thickening and contraction of segments. Resting study shows no significant perfusion abnormality. Gating at rest reveals normal wall motion with ejection fraction at 58%. The findings are consistent with no clear reversible or fixed perfusion abnormality. NM/NM cardiolite stress test IMPRESSION: 1. Myocardial perfusion imaging study shows normal myocardial perfusion. No evidence of any ischemia or infarction. 2. Gated LVEF is 72% during stress and 58% during rest. 3. Transient ischemic dilatation not present. EKG component of the test reported separately.
--- NOTE | 2023-02-12 07:56 | CA_ITS ---
Transthoracic Echocardiogram Patient (Last, First, Middle): Ramin Jo, Gender: Male Date of : 1965 Age: 57 Procedure Date: 02/12/2023 Procedure Type: Transthoracic Echocardiogram Location: OP Height: 175.26 cm Weight: 81.65 kg BSA: 1.98 m2 Heart Rate: 58 bpm BP: 132 / 78 mmHg Turret Lathe Tender: SB Referring MD: Baljeet Castaneda [facility] Symptoms: R07.89 - Other chest pain Study Quality: Adequate ECG Rhythm: Bradycardia Conclusions: - The left ventricular systolic function is normal. The visually estimated ejection fraction is between 55-60%. - No obvious valvular pathology seen on this study. Findings Left Ventricle Normal left ventricular cavity size. There is normal left ventricular wall thickness. The left ventricular systolic function is normal. The visually estimated ejection fraction is between 55-60%. There is no evidence of regional wall motion abnormalities. Diastolic function is normal for age. Right Ventricle Normal right ventricular cavity size and systolic function. Atria Both atria are normal in size. Aortic Valve There is a normal trileaflet aortic valve. There is no aortic valve stenosis. There is no aortic valve regurgitation. Mitral Valve The mitral valve appears normal. There is no mitral valve regurgitation. There is no mitral valve stenosis. Pulmonic Valve The pulmonic valve is likely normal. Tricuspid Valve Normal tricuspid valve structure. There is trace tricuspid valve regurgitation. There is no evidence of pulmonary hypertension. Great Vessels The asc aorta is normal in size. Venous The inferior vena cava is normal in size and collapses greater than 50% with inspiration. Pericardium/Pleural There is no evidence of pericardial effusion. Prior Study Comparison No prior study available for comparison. Recommendations, Care & Conclusions No obvious valvular pathology seen on this study. Measurements 2D Linear Measurements IVSd: 0.90 0.6-0.9/0.6-1.0 cm LVIDd: 4.80 3.9-5.3/4.2-5.9 cm LVIDd Index: 2.42 2.4-3.2/2.2-3.1 cm/m2 LVIDs: 3.20 2.0-3.6 cm LVPWd: 0.70 0.7-1.1 cm LA Diam: 3.20 2.7-3.8/3.0-4.0 cm LAIDs Index: 1.62 1.5-2.3 cm/m2 LV Mass: 157.61 67-162/88-224 g LV Mass Index: 79.60 43-95/49-115 g/m2 LVOT Diam: 2.20 3.0+(-)1.3 cm 2D Systolic Function EF 4C: 51.20 >55% EF 2C: 54.60 >55% EF BiP: 52.00 >55% Mitral Valve MV Pk E: 0.70 MV PK A: 0.55 MV Decel Time: 168.00 E/A: 1.30 E'Lateral: 11.40 E'Medial: 6.31 E/E' Med: 11.10 E/E' Lat: 6.10 PHT: 49.00 MVA PHT: 4.49 Decel Sauk: 4.16 Aortic Valve AoV Pk Jesús: 1.15 AoV Pk Grad: 5.00 LVOT LVOT Pk Jesús: 1.02 LVOT Mn Jesús: 0.67 LVOT VTI: 0.20 LVOT Pk Grad: 4.00 LVOT Mn Grad: 2.00 LVOT Diam: 2.20 LVOT Area: 3.80 Diastolic Function MV Pk E: 0.70 MV Pk A: 0.55 E/A: 1.30 E'Medial: 6.31 E/E' Med: 11.10 E' Laterial: 11.40 E/E' Lat: 6.10 Right Ventricle TAPSE (mm): 19.10 TVS' Jesús: 11.30 Tricuspid Valve RA Press: 3.00 Great Vessels Aorta Sinus of Valsalva: 3.40 2.0-3.5 cm Ao Asc: 3.50 2.1-3.4 cm Pulmonary Veins Pulm Vein S/D 1.30 Pulmonary Valve PV Pk Jesús: 0.80 Peak PV Grad: 3.00 Updated in Other Vendor System with Status of Final Won Rock MD electronically signed on 02/12/2023 10:00:08 AM with status of Final
--- NOTE | 2023-02-12 07:56 | CA_ITS ---
Acquisition Time: 2023-02-12 08:50:19 Total Exercise Time: 00:10:02 Test Indications: CHEST PAIN Medications: LISINOPRIL Protocol: CHAYA Max HR: 160 BPM 96% of Pred: 165 BPM Max BP: 140/078 mmHG Max Work Load: 11.7 METS Exercies stress test exercise 10 min 2 sec of Chaya protocol achieiving 95% MPHR, without anginal symptoms, with isolated PVCs and PACs, with nrmotensive response to exercise, without EKG changes. Nuclear images pending. Test reviewed with Dr. Juan Referred By: Baljeet Castaneda Overread By: Karly Todd
== END ==
LOC: HO.CARD 07:49
PROVIDERS: PCP Nurse Practitioner Family; Visit Provider Nurse Practitioner Family
DX: R07.89 Other chest pain (principal)
CPT/HCPCS: 78452; 93017; 93306; A9500

== ENCOUNTER → 2023-02-12 07:56 | Outpatient (BNV) | payer OTHER, SELFPAY | PROVIDERS: PCP Nurse Practitioner Family; Visit Provider Internal Medicine | DX: R07.89 Other chest pain (principal) | CPT/HCPCS: 78452; 93016; 93018; 93306 ==

== ENCOUNTER 2023-04-05 10:14 | Outpatient (AMB) | payer OTHER, SELFPAY ==
[2023-04-05 10:27] VITALS: BMI 41.8
--- NOTE | 2023-04-05 10:27 | MHC.OFFVIS ---
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 States his right wrist begin to hurt about 10 yrs and has been on and off since. 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 Pain is in his dorsum aspect of wrist. States pain increases with heavy lifting, when applying pressure, and with over use of hand. Reports his wrist pain has improved in the last 3 weeks. Reports numbness and tingling in bilateral hand that started about 5 years ago and has worsen. No EMG done. Also has right ankle pain which has improved as well. Allergies statins Adverse Reaction (Intermediate, Uncoded 04/05/23 10:34) Muscle aches Medication List - Last Reconciled 04/05/23 by Christin Molina MD cholecalciferol (vitamin D3) 50 mcg PO DAILY colesevelam (WelChol) 1,250 mg (2 x 625 mg) PO BID 90 days ezetimibe 10 mg PO DAILY ibuprofen 800 mg PO TID PRN 30 days lisinopril 40 mg PO DAILY 90 days prednisone 20 mg PO DAILY 5 days HPI HPI Comments History of Present Illness Details Here today for right wrist. Pain had gone away already. Points to left dorsal wrist. No swelling. It was hurting to warp picker anything. No numbness. Had gone to walkin in clinic, in September, for a left finger splinter. He also had ankle pain and bump on right big toe. Was prescribed prednisone with relief. Overall he is already feeling better. PCP had checked multiple lab tests. Normal SERA, RF, AntiCCP, Lyme, CRP. TSH is being watched. Xray hands did not show abnormality on the wrist or carpal bones that I can see. No fracture. Reported 1st [facility] joint arthritis but he does not have pain in that area. 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 Current occupational exposures/hazards: No Cognitive needs: No Hearing needs: No Vision needs: No Review of Systems Const All systems reviewed & are unremarkable except as noted in HPI and below Physical Exam Vital Signs: BMI result Body Mass Index 41.8 Constitutional: Patient appears to be in no acute distress, well nourished and well developed. MSK: Inspection reveals appropriate head and neck positioning. No pain with palpation over the neck musculature. Cervical ROM was full. Spurling's sign negative. Bilateral shoulder ROM WNL. No ligamentous laxity or crepitance. No increased effusion. Hawkin's test is negative. No joint effusion noted. No deformity noted. No intrinsic hand weakness noted. No atrophy noted. Mando test negative. Carpal compression test negative. Tinel sign positive in elbow bilateral. Strength is 5/5 in all muscle groups tested. No increased tone noted. Neurological: Neurologic examination of the upper and lower extremities was nonfocal with intact sensation, muscle stretch reflexes and without focal motor deficits . He?s negative bilaterally. Gait is non-antalgic without loss of balance. Results Reviewed Results Reviewed: Bilateral hand pain in joints of hand COMPARISON: 10/16/2022 left fourth digit TECHNIQUE: PA, oblique and lateral views of bilateral hands FINDINGS: LEFT HAND: Moderate degenerative changes first carpometacarpal joint with joint space narrowing and hypertrophic change. Bone mineralization is normal. Mild hypertrophic change in scattered IP joints. RIGHT HAND: Moderate degenerative changes first carpometacarpal joint with joint space narrowing and hypertrophic change. Bone mineralization is normal. Mild hypertrophic change in scattered IP joints. I reviewed records from the following: Internal Medicine Assessment & Plan Assessment & Plan (1) Joint pain in fingers of both hands: Code(s): M25.541 - Pain in joints of right hand; M25.542 - Pain in joints of left hand Plan Multiple joint pains, right wrist, left finger, right ankle, which are now all improved. He was treated for short time by PCP with prednisone. Wonder if he has inflammatory arthritis but all the blood work done so far are negative. If joint pain recurs, consider repeating blood test or referring to Rheumatology. Patient advised to call our office if pain recurs. Assessment and plan discussed with patient, and patient was agreeable. All questions were answered thoroughly. Christin Molina MD, CADEN Board Certified, [place] [employer] and Rehabilitation (ABPMR) Board Certified, [place] [employer] Electrodiagnostic [employer] (ABEM) Coding Level of Care Code New Pt Level 3 (61410) Diagnoses Joint pain in fingers of both hands M25.541; M25.542
== END 2023-04-05 11:04 | disposition home or self-care (01) ==
PROVIDERS: PCP Nurse Practitioner Family; Visit Provider Physical Medicine & Rehabilitation
DX: M25.541 Pain in joints of right hand (principal); M25.542 Pain in joints of left hand
CPT/HCPCS: 99203

== ENCOUNTER → 2023-04-05 10:14 | Outpatient (BNVA) | payer OTHER, SELFPAY | PROVIDERS: PCP Nurse Practitioner Family; Visit Provider Physical Medicine & Rehabilitation | DX: M25.541 Pain in joints of right hand (principal); M25.542 Pain in joints of left hand | CPT/HCPCS: 99202 ==

== ENCOUNTER 2023-06-27 16:28 | Outpatient (AMB) | payer OTHER, SELFPAY ==
--- NOTE | 2023-06-27 16:29 | MHC.PC.OV ---
Vital Signs 06/27/23 16:33 Height 5 ft 9 in Weight 188 lb BMI 27.8 BP 118/70 Blood Pressure Location Lt brachial Position Sitting Pulse 78 Pulse Source Pulse Oximeter Pulse Oximetry (%) 98 Oxygen Delivery Method Room Air Intake Visit Reasons: PE Intake Note: pt is here for physical exam, states ongoing headaches, very fatigue Legal Word Processor Required: No Allergies statins Adverse Reaction (Intermediate, Uncoded 06/27/23 16:33) Muscle aches Tobacco use date assessed: 06/27/23 Dental Screening Dental Screen Date: 06/27/23 Did you have a dental visit in the last 12 months?: Yes Did you have a dental problem in the last 6 months where you did not have access to dental care?: No Was dental information given to patient?: Patient has dentist HPI PE HPI Details Pt is here for a PE. Will order labs. Due for colon screen. Due for PSA, will order. Denies dribbling with urination, weak stream, and frequent nocturia. Did refer pt in the past for micro hem, pt reports not getting or hearing about an appointment date and time. Pt reports having head pressure , pointing to his bilat temples. He reports not having a Hx of migraines or headaches. He denies any n/v, fevers, or chills. Pt does report photophobia and sonophobia with the pressure . Motrin does help, minimally. Will order CT scan of head. 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 Current occupational exposures/hazards: No Cognitive needs: No Hearing needs: No Vision needs: No Questionnaire PHQ-9 Over the last 2 weeks, how often have you been bothered by any of the following problems? 1. Little interest or pleasure in doing things: not at all 2. Feeling down, depressed, or hopeless: not at all 3. Trouble falling or staying asleep, or sleeping too much: not at all 4. Feeling tired or having little energy: not at all 5. Poor appetite or overeating: not at all 6. Feeling bad about yourself - or that you are a failure or have let yourself or your family down: not at all 7. Trouble concentrating on things, such as reading the newspaper or watching television: not at all 8. Moving or speaking so slowly that other people could have noticed. Or the opposite - being so fidgety or restless that you have been moving around a lot more than usual: not at all 9. Thoughts that you would be better off or of hurting yourself in some way: not at all Total score: 0 Depression Screening Interpretation: Negative Depression Screening Done: Yes 80931 - PHQ-9 Billing: Yes Source: Developed by Drs. Gigi Chapman, Danii Erazo, Regis Urbina and colleagues, with an educational rosa from [employer]. Thrive Questionnaire Date Thrive assessed: 06/27/23 I am a: Patient What is your living situation today?: I have a steady place to live Within the past 12 months, did the food you bought not last and you didn't have the money to get more?: Never true Within the past 12 months, did you worry whether your food would run out before you got money to buy more?: Never true Do you have trouble paying for medicines?: No Do you have trouble getting transportation to medical appointments?: No Do you have trouble paying your heating and electricity bill?: No Do you have trouble taking care of your child, family member or friend?: No Do you have trouble with day-to-day activities such as bathing, preparing meals, shopping, managing finances, etc.?: No Are you currently unemployed and looking for a job?: No Are you interested in more education?: No Please select the resources that you would like help with: None Currently or been in a relationship where the following occur: no concerns reported THRIVE Score: 0 EFREN-7 AMB Questionnaire EFREN-7 Date EFREN - 7 assessed: 06/27/23 Feeling nervous, anxious, or on edge: 0 = Not at all Not being able to stop or control worryin = Not at all Worrying too much about different things: 0 = Not at all Trouble relaxin = Not at all Being so restless that it is hard to sit still: 0 = Not at all Becoming easily annoyed or irritable: 0 = Not at all Feeling afraid as if something awful might happen: 0 = Not at all Total EFREN-7 score (0-4 normal; 5-9 mild; 10-14 moderate; 15-21 severe): 0 Source: Developed by Drs. Gigi Chapman, Danii Erazo, Regis Urbina and colleagues, with an educational rosa from [employer]. EFREN-7 Assessment Billing EFREN-7 Assessment Tool: EFREN-7 Assessment 39792 Review of Systems Const Denies chills and Denies fever(s) Eyes Denies blurry vision ENT Denies vertigo, Denies dizziness and Denies sore throat Card Denies chest pain at rest, Denies chest pain with activity, Denies diaphoresis, Denies dyspnea and Denies dyspnea on exertion Resp Denies cough, Denies dyspnea, Denies dyspnea on exertion and Denies wheezing GI Denies abdominal pain, Denies melena, Denies hematochezia, Denies constipation, Denies diarrhea and Denies loose stools Denies hematuria Musc Denies numbness and Denies tingling Skin/Breast Denies lesions Neuro Denies vertigo, Denies dizziness, Denies numbness and Denies tingling Psych Denies anxiety, Denies depression, Denies homicidal ideation, Denies suicidal ideation and Denies other (substance abuse) Aller/Immun Denies wheezing Physical exam (Primary Care) Vital Signs: Last Vital Signs Pulse 78 06/27/23 16:33 BP 118/70 06/27/23 16:33 Pulse Ox 98 06/27/23 16:33 Oxygen Delivery Method Room Air 06/27/23 16:33 BMI result Body Mass Index 27.8 Tobacco/Smoking Status: Tobacco use Status Tobacco use date assessed 06/27/23 06/27/23 16:37 Patient Tobacco Use Status Former Tobacco user 06/27/23 16:30 e-Cigarette/Vaping Use Never Used 06/27/23 16:30 PHQ-9: PHQ-9 Score PHQ-9: Total score 0 06/27/23 17:08 Depression Screening Interpretation: Negative Thrive Assessment: Date of Thrive Assessment Date Thrive assessed 06/27/23 06/27/23 16:37 Currently or been in a relationship where the following occur: no concerns reported Const General: cooperative Nutritional Appearance: well nourished Orientation/consciousness: patient oriented x3 HENMT Head: Yes normal to inspection, Yes normocephalic and Yes atraumatic Ears: TM's normal bilaterally Eyes General: appearance normal, both eyes and all related structures Alignment and Position: alignment normal and position normal Pupils: Equal, round and reactive pupils present Neck Neck: Yes normal visual inspection and Yes no lymphadenopathy Thyroid: Thyroid normal Resp Effort & Inspection: normal respiratory effort Auscultation: clear to auscultation bilaterally Cardio Rate: regular rate Rhythm: regular rhythm Heart sounds: S1 normal heart sound present, S2 normal heart sound present and no murmurs GI Palpation (GI): Soft to palpation and nontender Auscultation: normal bowel sounds Male General Exam: Yes normal external exam Penis: normal penis Scrotum: scrotum normal, testes descended bilaterally and no inguinal hernias Testes: no testicular mass Skin Rashes: no rashes Neuro General: patient oriented x3, moves all extremities, no focal motor deficits and deep tendon reflexes 2+ bilaterally Cranial nerves: Yes CN's II-XII intact bilaterally and Yes Equal, round and reactive pupils present Motor exam (neuro): 5/5 motor strength present throughout Romberg Test: Negative Psych Appearance: grossly normal Mental Status: mental status grossly normal Speech and movement: Normal speech and movement present Affect: normal affect Attitude: cooperative Thought process: Normal thought process present Thought content: Normal thought content present Insight: Good insight present (Psych) Judgement: Good judgement present (Psych) Assessment and Plan Assessment & Plan (1) Screening for colon cancer: Code(s): Z12.11 - Encounter for screening for malignant neoplasm of colon (2) Physical exam: Code(s): Z00.00 - Encounter for general adult medical examination without abnormal findings Plan: labs ordered (3) Screening PSA (prostate specific antigen): Code(s): Z12.5 - Encounter for screening for malignant neoplasm of prostate (4) New onset headache: Code(s): R51.9 - Headache, unspecified Plan: ct scan ordered Orders: Orders TSH reflex Free T4 Today Z00.00 - Encounter for general adult medical examination without abnormal findings Lipid Panel Today Z00.00 - Encounter for general adult medical examination without abnormal findings CT head/brain wo IV con Today R51.9 - Headache, unspecified Complete Blood Count Auto Diff Today Z00.00 - Encounter for general adult medical examination without abnormal findings Comprehensive [place]. Panel Fast Today Z00.00 - Encounter for general adult medical examination without abnormal findings UA CC w/rflx Micro + Cult Today Z00.00 - Encounter for general adult medical examination without abnormal findings Prostate Specific Antigen Scr Today Z12.5 - Encounter for screening for malignant neoplasm of prostate Referrals Gastroenterology Referral Z12.11 - Encounter for screening for malignant neoplasm of colon Coding Level of Care Code Est Pt Prev Care 40-64y(56437) Diagnoses Screening for colon cancer Z12.11 Physical exam Z00.00 Screening PSA (prostate specific antigen) Z12.5 New onset headache R51.9 Additional Codes EFREN-7 Assessment Billing - EFREN-7 Assessment Tool: EFREN-7 Assessment 27530 ([id number])
[2023-06-27 16:33] VITALS: BP 118/70; PULSE 78; O2SAT 98; BMI 27.8
== END 2023-06-27 17:36 | disposition home or self-care (01) ==
PROVIDERS: Visit Provider Nurse Practitioner Family
DX: Z00.00 Encounter for general adult medical examination without abnormal findings (principal); Z12.11 Encounter for screening for malignant neoplasm of colon; Z12.5 Encounter for screening for malignant neoplasm of prostate; R51.9 Headache, unspecified
CPT/HCPCS: 99396

== ENCOUNTER 2023-07-14 06:34 | Outpatient (REF) | payer OTHER, SELFPAY ==
[2023-07-14 11:21] LABS: Appearance Urine Clear; Color Urine Yellow; Glucose Urine UA Negative (Negative); Leukocyte Esterase Urine Negative (Negative); Nitrite Urine Negative (Negative); PH 5.5 (5.0-9.0); Specific Gravity - Urine 1.015 (1.005-1.025); Urine Blood Negative (Negative); Urine Ketones Negative (Negative); Urine Protein Negative (Neg-Trace)
[2023-07-14 11:24] LABS: MANUAL DIFF FLAG NO
[2023-07-14 11:29] LABS: Basophils Percent Auto 0.4 % (0-2); Eosinophils Absolute Auto 0.1 X10*3/uL (0.0-0.4); Hematocrit 46.4 % (42.0-52.0); Lymphocytes Absolute Auto 2.1 X10*3/uL (1.2-4.9); Lymphocytes Percent Auto 41.9 % (20-40); Mean Corpuscular HGB Conc 34.5 g/dl (31.0-36.0); Mean Corpuscular Volume 87.1 fL (80.0-98.0); Mean Platelet Volume 9.4 fL (9.4-12.4); Monocytes Absolute Auto 0.6 X10*3/uL (0.1-1.2); Monocytes Percent Auto 12.6 % (2-11); Neutrophils Absolute Auto 2.1 x10*3/uL (2.0-8.3); Neutrophils Percent Auto 43.1 % (45-73); Platelet Count 234 X10*3/uL (160-400); Red Blood Count 5.33 X10*6/uL (4.60-5.80); Red Cell Distribution Width 12.3 % (11.0-16.0); White Blood Count 4.9 X10*3/uL (4.8-10.8)
[2023-07-14 12:11] LABS: Alanine Aminotransferase 38 U/L (0-40); Albumin Level 4.2 g/dL (3.5-5.0); Alkaline Phosphatase 60 U/L (39-117); Anion Gap 12 (12-20); Aspartate Amino Transferase 34 U/L (5-37); Bilirubin Total 0.6 mg/dL (0.0-1.0); Blood Urea Nitrogen 13 mg/dL (9-16); Calcium 9.7 mg/dL (8.4-10.2); Carbon Dioxide 26 mmol/L (22-29); Chloride 106 mmol/L (96-108); Cholesterol 238 mg/dL (<200); Estimated Glomerular Filt Rate > 60; Glucose Fasting 91 mg/dL (60-99); HDL Cholesterol 43 mg/dL (>40); LDL Cholesterol Calculated 169 mg/dL (<100); Potassium 3.8 mmol/L (3.3-5.1); Sodium 140 mmol/L (135-145); Total Protein 7.5 g/dL (6.5-8.0); Triglycerides 132 mg/dL (<150)
[2023-07-14 12:15] LABS: TSH reflex Free T4 2.38 uIU/mL (0.32-4.0)
[2023-07-14 12:18] LABS: Prostate Specific Antigen Scr 0.22 ng/mL (<0.05-4.0)
== END 2023-07-14 06:35 | disposition home or self-care (01) ==
LOC: HO.HMGCLDS 06:34
PROVIDERS: PCP Nurse Practitioner Family; Visit Provider Nurse Practitioner Family
DX: Z00.00 Encounter for general adult medical examination without abnormal findings (principal); Z13.220 Encounter for screening for lipoid disorders; Z12.5 Encounter for screening for malignant neoplasm of prostate; Z13.29 Encounter for screening for other suspected endocrine disorder
CPT/HCPCS: 36415; 80053; 80061; 81003; 84153; 84443; 85025

== ENCOUNTER 2023-07-17 07:37 | Outpatient (REF) | payer OTHER, SELFPAY ==
--- NOTE | ~2023-07-17 | CT_ITS ---
EXAMINATION: CT HEAD WITHOUT CONTRAST CLINICAL INFORMATION: 57-year-old with headache unspecified. COMPARISON: None available. TECHNIQUE: Contiguous axial imaging was performed from the skull base to vertex without intravenous administration of contrast. This CT examination was performed using dose optimization techniques as appropriate, variously including the following: *Automated exposure control *Adjustment of mA and/or kV according to patient size (this includes techniques or standardized protocols for targeted exams where dose is matched to indication/reason for exam; i.e. extremities or head) *Use of iterative reconstruction technique DLP: 882 mGy-cm FINDINGS: BRAIN VOLUME: Within normal limits within the limitations of qualitative assessment. STRUCTURAL: Partially empty sella is noted. Normal variant. BRAIN AND MENINGES: Brain parenchyma is normal in morphology and attenuation. Valenzuela-white matter interface is preserved. No intracranial hemorrhage, extra-axial fluid collection, infarction, space-occupying process or mass effect is identified. Ganglionic structures are intact. Midline structures appear grossly intact allowing for beam hardening artifacts. VENTRICLES AND SUBARACHNOID SPACES: The ventricular system and subarachnoid spaces are within normal range; there is no hydrocephalus. ORBITAL STRUCTURES: Grossly unremarkable within the limitations of the study. OSSEOUS STRUCTURES, SINUSES/MASTOIDS, EXTRACRANIAL SOFT TISSUES: The calvarium and bony skull base appear grossly intact. The visualized airspaces are unopacified. TMJs appear within normal limits bilaterally. CT/CT head/brain wo IV con IMPRESSION: 1. Normal noncontrast CT of the brain. 2. No visualized sinonasal or mastoid inflammatory changes.
== END 2023-07-17 07:38 | disposition home or self-care (01) ==
LOC: HO.CT 07:37
PROVIDERS: PCP Nurse Practitioner Family; Visit Provider Nurse Practitioner Family
DX: R51.9 Headache, unspecified (principal)
CPT/HCPCS: 70450

== ENCOUNTER 2023-08-23 10:52 | Outpatient (REF) | payer OTHER, SELFPAY ==
[2023-08-23 20:17] LABS: Urine Cytology See Pathology rpt
== END 2023-08-23 10:53 | disposition home or self-care (01) ==
LOC: HO.LAB 10:52
PROVIDERS: PCP Nurse Practitioner Family; Visit Provider Urology
DX: R31.29 Other microscopic hematuria (principal); R35.0 Frequency of micturition; F17.200 Nicotine dependence, unspecified, uncomplicated
CPT/HCPCS: 81003; 88112; 99202

== ENCOUNTER 2023-08-23 10:52 | Outpatient (AMB) | payer OTHER, SELFPAY ==
--- NOTE | 2023-08-23 11:30 | A.OFFVIS_ITS ---
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 The patient has a history of nicotine use. He stopped smoking cigarettes about 30 years, but smokes cigars occasionally. I have discussed nicotine is a risk factor for urinary tract cancers. I have reviewed renal ultrasound December 2022 kidneys negative for calculi are masses, bladder wall thickening noted. I have discussed with the patient that this may be secondary to enlarged prostate and bladder changes related to compensation of the bladder muscle with voiding. I have discussed the importance of further evaluation with office cystoscopy. The patient complains of urinary frequency he drinks 2 large greater than 10 oz cups of coffee during the day and states that he does drink a lot of water as well. I have discussed cutting back on caffeine intake. He is up 1-2 times at night to urinate. Denies gross hematuria. 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 Current occupational exposures/hazards: No Cognitive needs: No Hearing needs: No Vision needs: No Review of Systems Const All systems reviewed & are unremarkable except as noted in HPI and below Reports no additional complaints Eyes Reports no additional complaints ENT Reports no additional complaints Card Reports no additional complaints Resp Reports no additional complaints GI Reports no additional complaints Reports as per HPI Musc Reports no additional complaints Skin/Breast Reports system reviewed and no additional complaints, except as documented Neuro Reports no additional complaints Psych Reports no additional complaints Endo Reports no additional complaints Byron/Lymph Reports no additional complaints Aller/Immun Reports no additional complaints Physical Exam Const General: healthy appearing, no acute distress and well developed Orientation/consciousness: patient oriented x3 HEENT Head: Yes normocephalic and Yes atraumatic Eyes Conjunctivae: conjunctivae normal Neck Neck: Yes normal visual inspection Chest Chest palpation & inspection: normal inspection of the chest Resp Effort & Inspection: normal respiratory effort Cardio Rate: regular rate GI Inspection: Yes normal to inspection Skin General skin exam: no rashes or lesions noted Neuro General: patient oriented x3 Extrem General: No pedal edema Psych Appearance: grossly normal Affect: normal affect Results AMB Urinalysis, Automated UA Leukoctes 0 Jerry/uL Last Edit by JUAN JOSE Hagen on 08/23/23 11:38 UA Nitrite Negative Last Edit by JUAN JOSE Hagen on 08/23/23 11:38 UA Urobilinogen 0.2 mg/dL Last Edit by JUAN JOSE Hagen on 08/23/23 11:3 8 UA Protein 0 mg/dL Last Edit by JUAN JOSE Hagen on 08/23/23 11:38 UA pH 6.0 Last Edit by JUAN JOSE Hagen on 08/23/23 11:38 UA Blood 0 Shawn/uL Last Edit by JUAN JOSE Hagen on 08/23/23 11:38 UA Specific [place] 1.010 Last Edit by JUAN JOSE Hagen on 08/23/23 11: 38 UA Ketone Negative Last Edit by JUAN JOSE Hagen on 08/23/23 11:38 UA Bilirubin 0 mg/dL Last Edit by JUAN JOSE Hagen on 08/23/23 11:38 UA Glucose 0 mg/dL Last Edit by JUAN JOSE Hagen on 08/23/23 11:38 Results Reviewed Results Reviewed: Laboratory Last Values Urine pH (Auto) 6.0 08/23/23 11:37 Specific [place] (Auto) 1.010 08/23/23 11:37 Urine Protein (Auto) 0 mg/dL 08/23/23 11:37 Glucose (UA)(Auto) 0 mg/dL 08/23/23 11:37 Urine Ketones (Auto) Negative 08/23/23 11:37 Urine Blood (Auto) 0 Shawn/uL 08/23/23 11:37 Urine Nitrite (Auto) Negative 08/23/23 11:37 Urine Bilirubin (Auto) 0 mg/dL 08/23/23 11:37 Urine Urobilinogen (Auto) 0.2 mg/dL 08/23/23 11:37 Leukocyte Esterase (Auto) 0 Jerry/uL 08/23/23 11:37 Assessment & Plan Assessment & Plan (1) Microscopic hematuria: Code(s): R31.29 - Other microscopic hematuria (2) Urinary frequency: Code(s): R35.0 - Frequency of micturition (3) Nicotine dependence with current use: Code(s): F17.200 - Nicotine dependence, unspecified, uncomplicated Plan Plan discussed re-evaluate upper urinary tract with CT urogram, urine for cytology, follow-up office cystoscopy Orders: Orders AMB Urinalysis Automated Today Z13.9 - Encounter for screening, unspecified CT urogram Today F17.200 - Nicotine dependence, unspecified, uncomplicated, R35.0 - Frequency of micturition Patient Instructions: The patient had an opportunity to ask questions regarding treatment plan. All questions were answered. Imaging, Laboratory studies and physical exam results were discussed and reviewed in detail. No major barriers to understanding were identified. The patient expressed understanding and agreement with the above treatment plan. The patient is aware they should contact our office by phone for worsening of their current condition or the appearance of new symptoms. Compliance is encouraged with any medications and followup testing that is ordered. It is a privilege to be allowed the opportunity to participate in the urologic care of your patient. If you have any questions or concerns regarding treatment for the above conditions please do not hesitate to contact me. The office telephone contact is [phone]. This note is constructed in part using voice recognition software. While every effort has been made to ensure accuracy machine operator replanter errors may have been included. Yours sincerely, Carla Segovia MD Coding Level of Care Code New Pt Level 4 (82940) Diagnoses Microscopic hematuria R31.29 Urinary frequency R35.0 Nicotine dependence with current use F17.200
== END 2023-08-23 11:57 | disposition home or self-care (01) ==
PROVIDERS: PCP Nurse Practitioner Family; Visit Provider Urology
DX: R31.29 Other microscopic hematuria (principal); R35.0 Frequency of micturition; F17.200 Nicotine dependence, unspecified, uncomplicated; Z13.9 Encounter for screening, unspecified
CPT/HCPCS: 99204

== ENCOUNTER 2023-08-28 15:51 | Outpatient (AMB) | payer OTHER, SELFPAY ==
[2023-08-28 15:53] VITALS: BP 133/74; PULSE 70; BMI 27.3
--- NOTE | 2023-08-28 15:53 | MHC.OFFVIS ---
Vital Signs 08/28/23 15:53 Height 5 ft 9 in Weight 184 lb 11.958 oz BMI 27.3 BP 133/74 Blood Pressure Location Rt brachial Position Sitting Pulse 70 Intake Visit Reasons: Colonoscopy Screening Intake Note: Ramin presents to in office visit today for colonoscopy screening. CC: Patient c/o feeling very gassy and a lot of blood with BM this morning. He has seen blood after BMs before. Refuse Driver Required: No Accompanied by: Self / Same As Patient Allergies statins Adverse Reaction (Intermediate, Uncoded 08/23/23 11:32) Muscle aches HPI HPI Colonoscopy Screening: Details: Assessment & Plan (1) Epigastric pain: ?Code(s): R10.13 - Epigastric pain ?Plan: He tells me that the increased 40 mg a day dose has completely controlled his dyspepsia and is coughing.? He will only now very occasionally get that ?sick feeling? and this is greatly improved from what it was prior.? It was also quite helpful that he is taking the omeprazole on an empty stomach as he was forgetting to take it in the morning thinking he had to take it with food and he is not really not in the habit of eating in the morning.? I am glad that I told him that it works best if he take it on empty stomach as this has solved multiple problems.? He asks if he needs to be on this medication for ever and I tell him that sometimes it can get off of it if you lose weight are conscientious about avoiding GERD triggers etc, but sometimes other medications were on (for example the NSAIDs for his back) and are genetic profile (how well are body can continue to make the mucus to protect itself) dictate chronic use of these medications.? I do tell him that so far there is no long-term detrimental effects to taking it as per the most recent research.? Will check back again in 3 months and at that time if he remains well controlled week in can sitter reducing the dose somewhat to back to 20 mg a day.? He should call me if he needs to be seen sooner if he has any worsening symptoms.? (2) Abdominal bloating: ?Code(s): R14.0 - Abdominal distension (gaseous) (3) Dyspepsia: ?Code(s): R10.13 - Epigastric pain (4) Tubular adenoma of colon: ?Comment: 2018 scope repeat 5 years ?Code(s): D12.6 - Benign neoplasm of colon, unspecified Laboratory Tests 07/14/23 07/14/23 07/14/23 06:42 06:42 06:50 WBC 4.9 Hgb 16.0 Hct 46.4 Plt Count 234 Estimated GFR Total Bilirubin 0.6 AST 34 ALT 38 Alkaline Phosphatase 60 TSH 07/14/23 06:50 WBC Hgb Hct Plt Count Estimated GFR > 60 Total Bilirubin AST ALT Alkaline Phosphatase TSH 2.38 TODAY'S VISIT Pt has been lost to follow up since 2020. He tolerated the procedure well. He preferred the Suprep. He denies any cardiac or respiratory problems. There are no prior problems with anesthesia or sedation. No ID problems. He has had RB copious over the past week, none really prior to this. At this time he declines any hemorrhoid creams or prescriptions.. Return office visit after the colonoscopy [facility] Medical History (Updated 08/28/23 @ 16:01 by SALVATORE Martinez) Screening for colon cancer Chest discomfort Finger joint swelling Sliver Lipid disorder Screening PSA (prostate specific antigen) Physical exam Epigastric pain Abdominal bloating Dyspepsia Chest pain Viral syndrome Chronic pain High cholesterol Surgical History H/O colonoscopy Social History Housing: House Patient Tobacco Use Status: Former Tobacco user Years Smoked: 30 years ago e-Cigarette/Vaping Use: Never Used Second Hand Smoke Exposure: No service: No Current occupational status: employed 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 Current occupational exposures/hazards: No Cognitive needs: No Hearing needs: No Vision needs: No Review of Systems Const Denies fatigue, Denies fever(s), Denies night sweats, Denies poor appetite and Denies weight loss ENT Reports Normal hearing present, Denies dental pain, Denies dysphagia, Denies hearing loss, Denies mouth pain, Denies odynophagia, Denies throat swelling, Denies tongue swelling and Reports other (Dentition adequate) Card Reports no additional complaints Resp Reports no additional complaints GI Details: Denies abdominal pain, Denies melena, Denies bloating, Denies hematochezia, Denies constipation, Denies GI cramping, Denies dysphagia, Denies excessive flatus, Denies early satiety, Reports heartburn, Denies diarrhea, Denies nausea, Denies odynophagia, Denies vomiting and Denies hematemesis Skin/Breast Denies pruritus, Denies lesions, Denies rash and Denies jaundice Neuro Reports Normal hearing present and Denies Abnormal speech present Endo Denies fatigue Aller/Immun Denies throat swelling and Denies tongue swelling Physical Exam Vital Signs: Last Vital Signs Pulse 70 08/28/23 15:53 BP 133/74 08/28/23 15:53 BMI result Body Mass Index 27.3 Const General: cooperative, no acute distress, well developed and well groomed Nutritional Appearance: average body habitus and well nourished Orientation/consciousness: oriented to person, oriented to place and oriented to time Limitations: No language barrier HEENT Head: Yes normocephalic and Yes atraumatic Eyes General: appearance normal, both eyes and all related structures Pupils: Equal, round and reactive pupils present Neck Neck: Yes normal visual inspection and Yes no lymphadenopathy Thyroid: Thyroid normal Resp Effort & Inspection: normal respiratory effort and able to speak in complete sentences Auscultation: clear to auscultation bilaterally Cardio Rate: regular rate Rhythm: regular rhythm Heart sounds: Normal, physiologic split S2 sound present Peripheral pulses: radial pulses present and posterior tibial pulses present GI Inspection: No distended and No Abdominal panniculus present Palpation (GI): Soft to palpation, nontender, no guarding, not rigid and No hepatosplenomegaly present Percussion: Yes normal to percussion Auscultation: normal bowel sounds Rectal Exam - Male: Yes deferred Skin General skin exam: no rashes or lesions noted, turgor normal, skin not dry, no jaundice, No spider nevi and no striae Rashes: no rashes Nails: normal Neuro General: oriented to person, oriented to place and oriented to time Cranial nerves: Yes Equal, round and reactive pupils present and Yes Normal hearing present Speech: No Abnormal speech present Extrem General: Yes normal to inspection, No clubbing, No cyanosis and No edema Psych Appearance: grossly normal and well kempt Mental Status: mental status grossly normal Speech and movement: Normal speech and movement present Affect: normal affect Attitude: cooperative Thought process: Normal thought process present and not confabulating Thought content: Normal thought content present Insight: Fair insight present (Psych) Judgement: Fair judgement present (Psych) Results Reviewed Results Reviewed: Laboratory Tests 07/14/23 07/14/23 07/14/23 06:42 06:42 06:50 WBC 4.9 Hgb 16.0 Hct 46.4 Plt Count 234 Estimated GFR Total Bilirubin 0.6 AST 34 ALT 38 Alkaline Phosphatase 60 TSH 07/14/23 06:50 WBC Hgb Hct Plt Count Estimated GFR > 60 Total Bilirubin AST ALT Alkaline Phosphatase TSH 2.38 Assessment & Plan Assessment & Plan (1) Tubular adenoma of colon: Comment: 2018 scope repeat 5 years Code(s): D12.6 - Benign neoplasm of colon, unspecified Category: Medical Plan Pt has been lost to follow up since 2020. He tolerated the procedure well. He preferred the Suprep. He denies any cardiac or respiratory problems. There are no prior problems with anesthesia or sedation. No ID problems. He has had RB copious over the past week, none really prior to this. At this time he declines any hemorrhoid creams or prescriptions.. Return office visit after the colonoscopy Orders: Orders Colonoscopy - GI Use Only 08/28/23 D12.6 - Benign neoplasm of colon, unspecified Medications: New sodium,potassium,mag sulfates 17.5-3.13-1.6 gram (Suprep Bowel Prep Kit) 480 mL orally; FOR COLONOSCOPY PREP 354 mL 0RF bisacodyl (Dulcolax (bisacodyl)) 10 mg (2 x 5 mg) PO BEDTIME 4 tabs 0RF 2 days Coding Level of Care Code Est Pt Level 4 (10013) Diagnoses Tubular adenoma of colon D12.6
== END 2023-08-28 16:08 | disposition home or self-care (01) ==
PROVIDERS: PCP Nurse Practitioner Family; Visit Provider Nurse Practitioner
DX: D12.6 Benign neoplasm of colon, unspecified (principal)
CPT/HCPCS: 99214

== ENCOUNTER → 2023-08-28 15:51 | Outpatient (BNVA) | payer OTHER, SELFPAY | PROVIDERS: PCP Nurse Practitioner Family; Visit Provider Nurse Practitioner | DX: D12.6 Benign neoplasm of colon, unspecified (principal) | CPT/HCPCS: 99212 ==

== ENCOUNTER 2023-09-27 06:58 | Outpatient (REF) | payer OTHER, SELFPAY ==
[2023-09-27 11:21] LABS: Appearance Urine Clear; Color Urine Yellow; Glucose Urine UA Negative (Negative); Leukocyte Esterase Urine Negative (Negative); Nitrite Urine Negative (Negative); PH 5.5 (5.0-9.0); Specific Gravity - Urine 1.015 (1.005-1.025); Urine Blood Negative (Negative); Urine Ketones Negative (Negative); Urine Protein Negative (Neg-Trace)
[2023-09-27 12:05] LABS: Alanine Aminotransferase 38 U/L (0-40); Alkaline Phosphatase 55 U/L (39-117); Anion Gap 12 (12-20); Aspartate Amino Transferase 31 U/L (5-37); Bilirubin Total 0.5 mg/dL (0.0-1.0); Blood Urea Nitrogen 13 mg/dL (9-16); Calcium 9.7 mg/dL (8.4-10.2); Carbon Dioxide 25 mmol/L (22-29); Chloride 106 mmol/L (96-108); Cholesterol 216 mg/dL (<200); Estimated Glomerular Filt Rate > 60; Glucose Fasting 94 mg/dL (60-99); HDL Cholesterol 49 mg/dL (>40); LDL Cholesterol Calculated 134 mg/dL (<100); Potassium 4.1 mmol/L (3.3-5.1); Sodium 139 mmol/L (135-145); Total Protein 7.1 g/dL (6.5-8.0); Triglycerides 166 mg/dL (<150)
== END 2023-09-27 06:59 | disposition home or self-care (01) ==
LOC: HO.HMGCLDS 06:58
PROVIDERS: PCP Nurse Practitioner Family; Visit Provider Nurse Practitioner Family
DX: R79.89 Other specified abnormal findings of blood chemistry (principal); E78.5 Hyperlipidemia, unspecified
CPT/HCPCS: 36415; 80053; 80061; 81003

== ENCOUNTER 2023-10-23 08:23 | Outpatient (REF) | payer OTHER, SELFPAY ==
--- NOTE | ~2023-10-23 | CT_ITS ---
EXAMINATION: CT ABDOMEN AND PELVIS WITHOUT AND WITH CONTRAST CLINICAL INFORMATION: Nicotine dependence, unspecified, uncomplicated. COMPARISON: None available. TECHNIQUE: Noncontrast CT of the abdomen and pelvis is performed followed by split bolus contrast-enhanced images using 85 mL Omnipaque 350 contrast.? Postcontrast imaging is performed during the combined nephrogram and excretion phase. Sagittal and coronal reformatted images were obtained on the technologist's workstation for both the precontrast and postcontrast phases. This CT examination was performed using dose optimization techniques as appropriate, variously including the following: *Automated exposure control *Adjustment of mA and/or kV according to patient size (this includes techniques or standardized protocols for targeted exams where dose is matched to indication/reason for exam; i.e. extremities or head) *Use of iterative reconstruction technique DLP: 634.0 mGy-cm FINDINGS: LUNG BASES: The visualized lung bases are unremarkable. LIVER, GALLBLADDER, AND BILIARY TREE: The liver is normal in size, shape, and attenuation. No focal hepatic lesion or biliary ductal dilatation is present. The gallbladder is unremarkable with no evidence of radiopaque gallstones, gallbladder wall thickening, or obvious pericholecystic inflammatory changes. PANCREAS: Unremarkable. SPLEEN: Unremarkable. ADRENAL GLANDS: Unremarkable. KIDNEYS AND URETERS: The kidneys are normal in size, shape, and attenuation. No hydronephrosis, hydroureter, or calculi seen. No perinephric stranding. The collecting systems appear normal with no mucosal abnormality or filling defect. A benign right-sided posterior exophytic cortical 1 cm Bosniak class I renal cyst is noted which requires no additional imaging or followup. No solid renal masses are seen. BLADDER: Unremarkable. GASTROINTESTINAL TRACT: The small and large bowel are unremarkable aside from a few scattered colonic diverticula without diverticulitis. The appendix is unremarkable. ABDOMINAL WALL: No significant hernia is appreciated. LYMPH NODES: Normal. VASCULAR: Unremarkable. PELVIC VISCERA: Mild BPH. Seminal vesicles appear normal. OSSEUS STRUCTURES: Degenerative changes are present at L5-S1 with grade 1 retrolisthesis of L5 upon S1. No bony destructive lesions are seen. CT/CT urogram IMPRESSION: 1. A cause for the patient's hematuria has not been found. 2. Incidental note made of benign Bosniak class I right renal cyst which requires no additional imaging or followup, mild BPH and degenerative changes L5-S1.
[2023-10-23] MEDS: iohexoL 350 MG/ML 100 ML INFUS..BTL IV (09:22)
== END 2023-10-23 08:24 | disposition home or self-care (01) ==
LOC: HO.CT 08:23
PROVIDERS: PCP Nurse Practitioner Family; Visit Provider Urology
DX: R35.0 Frequency of micturition (principal); F17.200 Nicotine dependence, unspecified, uncomplicated
CPT/HCPCS: 74178; Q9967

== ENCOUNTER 2023-11-08 09:26 | Outpatient (AMB) | payer OTHER, SELFPAY ==
--- NOTE | 2023-11-08 09:41 | A.OFFVIS_ITS ---
Intake Visit Reasons: cysto/CT Intake Note: Patient presents today for a CYSTOSCOPY Procedure: Meds: None Allergies to Antibiotic: No Known Allergies Blood Thinner: None Disposable Uro-G HD Cystoscope Cannula: Lot: [id number] Exp: 05/29/2026 Retort Setter Required: No Accompanied by: Self / Same As Patient Allergies statins Adverse Reaction (Intermediate, Uncoded 11/08/23 09:42) Muscle aches Medication List - Last Reconciled 11/08/23 by Carla Segovia MD alfuzosin ER 10 mg PO DAILY bisacodyl (Dulcolax (bisacodyl)) 10 mg (2 x 5 mg) PO BEDTIME 2 days cholecalciferol (vitamin D3) 50 mcg PO DAILY fluvastatin 20 mg PO BEDTIME ibuprofen 800 mg PO TID PRN 30 days lisinopril 20 mg PO DAILY sodium,potassium,mag sulfates 17.5-3.13-1.6 gram (Suprep Bowel Prep Kit) 480 mL orally; FOR COLONOSCOPY PREP [zinc 1 tab PO DAILY] HPI Comments Details: 11/08/23--Ramin is here for office cystoscopy, he had CT Urogram on 10/23/23, official report pending. I have reviewed films. Cystoscopy findings: Mild bladder wall thickening, prostate enlarged, no suspicious bladder lesions visualized. Discussed trial of alfuzosin. Review of chart: 08/23/2023-- Ramin is a 67-year-old male who is here for evaluation for microscopic hematuria. The patient has a history of nicotine use. He stopped smoking cigarettes about 30 years, but smokes cigars occasionally. I have discussed nicotine is a risk factor for urinary tract cancers. I have reviewed renal ultrasound December 2022 kidneys negative for calculi are masses, bladder wall thickening noted. I have discussed with the patient that this may be secondary to enlarged prostate and bladder changes related to compensation of the bladder muscle with voiding. I have discussed the importance of further evaluation with office cystoscopy. The patient complains of urinary frequency he drinks 2 large greater than 10 oz cups of coffee during the day and states that he does drink a lot of water as well. I have discussed cutting back on caffeine intake. He is up 1-2 times at night to urinate. Denies gross hematuria. Plan discussed re-evaluate upper urinary tract with CT urogram, urine for cytology, follow-up office cystoscopy [facility] Medical History Screening for colon cancer Chest discomfort Finger joint swelling Sliver Lipid disorder Screening PSA (prostate specific antigen) Physical exam Epigastric pain Abdominal bloating Dyspepsia Chest pain Viral syndrome Chronic pain High cholesterol Surgical History H/O colonoscopy Social History Housing: House Patient Tobacco Use Status: Former Tobacco user Years Smoked: 30 years ago e-Cigarette/Vaping Use: Never Used Second Hand Smoke Exposure: No service: No Current occupational status: employed 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 Current occupational exposures/hazards: No Cognitive needs: No Hearing needs: No Vision needs: No Review of Systems Const All systems reviewed & are unremarkable except as noted in HPI and below Reports no additional complaints Eyes Reports no additional complaints ENT Reports no additional complaints Card Reports no additional complaints Resp Reports no additional complaints GI Reports no additional complaints Reports as per HPI Musc Reports no additional complaints Skin/Breast Reports system reviewed and no additional complaints, except as documented Neuro Reports no additional complaints Psych Reports no additional complaints Endo Reports no additional complaints Byron/Lymph Reports no additional complaints Aller/Immun Reports no additional complaints Office Procedures Cystoscopy Consent Discussed risk and benefit or proposed procedure with the patient. Information consent for procedure given to the patient. Discussed technical aspects, risks, benefits and alternatives in full. Addressed all of the patient's questions and concerns regarding the procedure. The patient demonstrated knowledge and understanding. They wish to proceed with this procedure. Preparation The patient was prepped in the usual manner. A willow machine tender was present and in the room. Genitalia was prepped with betadine solution in a sterile manner. Lidocaine Jelly 2% was placed into the urethra and 16Fr flexible Olympus cystoscope was inserted into the meatus after adequate lubrication. Procedure Time out per protocol performed. Bladder Inspection Bladder Inspection: The bladder was inspected in its entirety with utilization retroflexion displaying: Tumor(s): No suspicious lesions noted Trabeculation: Mild to moderate trabeculations Mucosal Erthema: NA Orifices: normal shape and position Urethra: normal Cystoscopy findings: prostatic urethra bilobar enlargement, bulbous urethra WNL, no suspicious bladder lesions visualized [id number] DISPOSABLE SCOPE URO-G FLEXIBLE SCOPE Procedure code (CPT) selection complete Office Meds lidocaine HCl 2 % mucosal jelly in applicator Performing Provider: Carla Segovia MD Performing Location: [facility] [place] [facility] Administered by: Sacha Reynolds LPN on 11/08/23 09:58 Dose Route Admin Location Dispensed Lot Number Expiration Date ND Six Pack Packer 10 mL intra-urethral 20 mL naproxen 500 mg tablet Performing Provider: Carla Segovia MD Performing Location: [facility] [place] [facility] Administered by: Sacha Reynolds LPN on 11/08/23 09:58 Dose Route Admin Location Dispensed Lot Number Expiration Date ND Six Pack Packer 500 mg PO 1 tab ciprofloxacin HCl 500 mg tablet Performing Provider: Carla Segovia MD Performing Location: [facility] [place] [facility] Administered by: Sacha Reynolds LPN on 11/08/23 09:58 Dose Route Admin Location Dispensed Lot Number Expiration Date NDC Six Pack Packer 500 mg PO 1 tab Results AMB Urinalysis, Automated UA Leukoctes 0 Jerry/uL Last Edit by JUAN JOSE Hagen on 11/08/23 09:51 UA Nitrite Negative Last Edit by JUAN JOSE Hagen on 11/08/23 09:51 UA Urobilinogen 0.2 mg/dL Last Edit by JUAN JOSE Hagen on 11/08/23 09:5 1 UA Protein 0 mg/dL Last Edit by JUAN JOSE Hagen on 11/08/23 09:51 UA pH 6.0 Last Edit by JUAN JOSE Hagen on 11/08/23 09:51 UA Blood 0 Shawn/uL Last Edit by JUAN JOSE Hagen on 11/08/23 09:51 UA Specific [place] 1.010 Last Edit by JUAN JOSE Hagen on 11/08/23 09: 51 UA Ketone Negative Last Edit by JUAN JOSE Hagen on 11/08/23 09:51 UA Bilirubin 0 mg/dL Last Edit by JUAN JOSE Hagen on 11/08/23 09:51 UA Glucose 0 mg/dL Last Edit by JUAN JOSE Hagen on 11/08/23 09:51 Results Reviewed Results Reviewed: Laboratory Last Values Urine pH (Auto) 6.0 11/08/23 09:46 Specific [place] (Auto) 1.010 11/08/23 09:46 Urine Protein (Auto) 0 mg/dL 11/08/23 09:46 Glucose (UA)(Auto) 0 mg/dL 11/08/23 09:46 Urine Ketones (Auto) Negative 11/08/23 09:46 Urine Blood (Auto) 0 Shawn/uL 11/08/23 09:46 Urine Nitrite (Auto) Negative 11/08/23 09:46 Urine Bilirubin (Auto) 0 mg/dL 11/08/23 09:46 Urine Urobilinogen (Auto) 0.2 mg/dL 11/08/23 09:46 Leukocyte Esterase (Auto) 0 Jerry/uL 11/08/23 09:46 Collected: 08/23/23 Location: .LAB Received: 08/24/23 Diagnosis Urine: Negative for high-grade urothelial carcinoma. COMMENT: Examination of a monolayer preparation slide shows scattered benign urothelial cells, occasional benign squamous cells, and occasional inflammatory cells and red blood cells. Clinical History Microscopic hematuria Material Received Urine Gross Description Received are 77 cc of clear yellow fluid from which a ThinPrep slide is prepared. Assessment & Plan Assessment & Plan (1) Microscopic hematuria: Code(s): R31.29 - Other microscopic hematuria Category: Medical (2) Urinary frequency: Code(s): R35.0 - Frequency of micturition Category: Medical (3) Nicotine dependence with current use: Comment: pt smokes cigars Code(s): F17.200 - Nicotine dependence, unspecified, uncomplicated Category: Medical Plan Cystoscopy findings mild to moderate trabeculations, no suspicious bladder lesions. Trial alfuzosin 10 mg daily. Follow-up 3 months to evaluate improvement in urinary symptoms Orders: Orders AMB Urinalysis Automated Today Z13.9 - Encounter for screening, unspecified AMB Cystoscopy Today F17.200 - Nicotine dependence, unspecified, uncomplicated, R31.29 - Other microscopic hematuria, R35.0 - Frequency of micturition Medications: New alfuzosin ER administer after the same meal each day 10 mg PO DAILY 30 tabs 3RF Patient Instructions: The patient had an opportunity to ask questions regarding treatment plan. The patient expressed understanding and agreement with the above treatment plan. The patient is aware they should contact our office by phone for worsening of their current condition or the appearance of new symptoms. Compliance is encouraged with any medications and followup testing that is ordered. It is a privilege to be allowed the opportunity to participate in the urologic care of your patient. If you have any questions or concerns regarding treatment for the above conditions please do not hesitate to contact me. The office telephone contact is [phone]. This note is constructed in part using voice recognition software. While every effort has been made to ensure accuracy receiving team member errors may have been inc luded. Yours sincerely, Carla Segovia MD Coding Level of Care Code Est Pt Level 4 (89131) Diagnoses Microscopic hematuria R31.29 Urinary frequency R35.0 Nicotine dependence with current use F17.200 CPT Codes Cystoscopy - CPT: 78452-[id number] ([id number])
== END 2023-11-08 10:37 | disposition home or self-care (01) ==
PROVIDERS: PCP Nurse Practitioner Family; Visit Provider Urology
DX: R31.29 Other microscopic hematuria (principal); R35.0 Frequency of micturition; F17.200 Nicotine dependence, unspecified, uncomplicated; Z13.9 Encounter for screening, unspecified
CPT/HCPCS: 52000; 99214

== ENCOUNTER → 2023-11-08 09:26 | Outpatient (BNVA) | payer OTHER, SELFPAY | PROVIDERS: PCP Nurse Practitioner Family; Visit Provider Urology | DX: R31.29 Other microscopic hematuria (principal); R35.0 Frequency of micturition; F17.290 Nicotine dependence, other tobacco product, uncomplicated | CPT/HCPCS: 52000; 81003; 99212 ==

== ENCOUNTER 2023-12-30 18:28 | Emergency (ER) | payer OTHER, SELFPAY ==
--- NOTE | ~2023-12-30 | XR_ITS ---
EXAMINATION: PORTABLE CHEST 1 VIEW CLINICAL INFORMATION: Pneumonia. COMPARISON: No recent pertinent prior studies are available for comparison. TECHNIQUE: Portable frontal view of the chest was obtained. FINDINGS: The lungs are well expanded. No focal infiltrate, effusion, edema, or pneumothorax. Cardiac and mediastinal silhouettes are within normal limits for technique. No acute bony abnormality seen. XR/XR chest 1V IMPRESSION: No evidence of acute disease.
[2023-12-30 18:30] VITALS: BP 172/107; PULSE 77; RESP 18; TEMP 36.4; O2SAT 97; BMI 27.8
--- NOTE | 2023-12-30 18:34 | ECG_ITS ---
Test Reason : NECK /CHEST PAIN Blood Pressure : / mmHG Vent. Rate : 069 BPM Atrial Rate : 069 BPM P-R Int : 148 ms QRS Dur : 082 ms QT Int : 408 ms P-R-T Axes : 057 -05 053 degrees QTc Int : 437 ms Normal sinus rhythm Normal ECG No previous ECGs available Referred By: Agusto Alvarez Electronically Signed By:THI GALDAMEZ MD
--- NOTE | 2023-12-30 18:36 | ED_ITS ---
HPI - General Adult General Chief complaint: General Medical Stated complaint: throat/ neck pain Time Seen by Provider: 12/30/23 20:25 Source: patient Mode of arrival: ambulatory Limitations: no limitations History of Present Illness ED Provider: Juani Mccarty PA-C HPI narrative: Patient is a 58 year old assigned male at with a history of HTN and GERD presenting to the emergency department today with throat and chest pain. Patient states that over the last month, he has had chest and throat pain. Patient states that the pain started after he began a medication prescribed by his urologist. Patient states that he called his urologist and together they agreed to discontinue the medication. Patient denies any dizziness, lightheadedness, abdominal pain, nausea, vomiting, fever, chills, blurry vision, double vision, loss of vision, current chest pain, difficulty breathing, shortness of breath, back pain, night sweats, pain with urination, increased urinary frequency, increased urinary urgency, blood in his urine or stool, syncope or a near syncopal episode, recent trauma or falls, bowel incontinence, bladder incontinence, or any other complaints at this time. Onset (ago): month(s) (1) Location: chest Relieving factors: none Exacerbating factors: none Associated symptoms: chest pain (intermittent) Treatments prior to arrival: none Related Data Home Medications ?Medication ?Instructions ?Recorded ?Confirmed cholecalciferol (vitamin D3) 50 50 mcg PO DAILY 02/14/22 11/08/23 mcg (2,000 unit) capsule lisinopril 40 mg tablet 20 mg PO DAILY 08/28/23 11/08/23 zinc 1 tab PO DAILY 08/28/23 11/08/23 Previous Rx's ?Medication ?Instructions ?Recorded ibuprofen 800 mg tablet 800 mg PO TID PRN pain 30 days #90 02/14/22 tabs bisacodyl 5 mg tablet,delayed 10 mg (2 x 5 mg) PO BEDTIME 2 days 08/28/23 release (Dulcolax (bisacodyl)) #4 tabs sodium,potassium,mag sulfates 17.5 480 ml PO .COMPLEX #354 mL 08/28/23 gram-3.13 gram-1.6 gram oral soln (Suprep Bowel Prep Kit) alfuzosin 10 mg tablet,extended 10 mg PO DAILY #30 tabs 11/08/23 release 24 hr fluvastatin 20 mg capsule 20 mg PO BEDTIME #90 caps 11/27/23 omeprazole 20 mg capsule,delayed 20 mg PO DAILY #7 caps 12/30/23 release Allergies Allergy/AdvReac Type Severity Reaction Status Date / Time statins AdvReac Intermediate Muscle Uncoded 12/30/23 18:34 aches Review of Systems 2 Constitutional: Constitutional: Reports no additional constitutional complaints, Denies chills, Denies fever(s) and Denies night sweats Eyes: Eyes: Reports no additional eye complaints, Denies blurry vision, Denies change in vision, Denies diplopia, Denies eye discharge, Denies loss of vision and Denies eye pain ENT: Denies dizziness and Reports sore throat Cardiovascular: Cardiovascular: Reports no additional cardiovascular complaints, Reports chest pain (intermittent - none presently), Denies lightheadedness, Denies Loss of Consciousness and Denies dyspnea Respiratory: Respiratory: Reports no additional respiratory complaints and Denies dyspnea Gastrointestinal: Gastrointestinal: Reports no additional gastrointestinal complaints, Denies abdominal pain, Denies melena, Denies hematochezia, Denies change in bowel habits and Denies change in stool character Genitourinary: Genitourinary: Reports no additional male genitourinary complaints, Denies hematuria, Denies oliguria, Denies difficulty urinating, Denies dysuria, Denies urinary frequency, Denies urinary hesitancy, Denies urinary incontinence and Denies urinary urgency Musculoskeletal: Musculoskeletal: Reports no additional musculoskeletal complaints, Denies numbness and Denies tingling Neurologic: Denies dizziness, Denies loss of vision, Denies numbness and Denies tingling Psychiatric: Psychiatric: Reports no additional psychiatric complaints Endocrine: Endocrine: Reports no additional endocrine complaints Hematologic/Lymphatic: Hematologic/Lymphatic: Reports no additional hematologic/lymphatic complaints Allergic/Immunologic: Allergic/Immunologic: Reports no additional allergic/immunologic complaints PMFSH Past Medical History Attestation statement: The following information was validated with the patient. Source: old records reviewed and nursing notes reviewed Medical History Screening for colon cancer Chest discomfort Finger joint swelling Sliver Lipid disorder Screening PSA (prostate specific antigen) Physical exam Epigastric pain Abdominal bloating Dyspepsia Chest pain Viral syndrome Chronic pain High cholesterol Surgical History H/O colonoscopy Social History Social History Housing: House Patient Tobacco Use Status: Former Tobacco user Years Smoked: 30 years ago Smoked in Last 30 Days: No e-Cigarette/Vaping Use: Never Used Second Hand Smoke Exposure: No Use of substances other than those prescribed or required for medical reasons: No Advance Directives: No Advance Directives Information Provided: No Do you have a plan to hurt others: No Plan service: No Current occupational status: employed 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 Current occupational exposures/hazards: No Cognitive needs: No Hearing needs: No Vision needs: No Physical Exam ED Vital Signs: Vital Signs - 24 hr 12/30/23 18:30 12/30/23 20:00 12/30/23 20:58 Temperature 97.5 F 98.3 F 98.3 F Pulse Rate 77 62 62 Respiratory Rate 18 17 17 Blood Pressure 172/107 H 139/93 H 139/93 H Pulse Oximetry 97 98 98 Oxygen Delivery Method Room Air Room Air Room Air BMI result Body Mass Index 27.8 Const General: cooperative, no acute distress, alert and awake Nutritional Appearance: well nourished Orientation/consciousness: patient oriented x3 Limitations: no limitations HENMT Head: Yes normal to inspection and Yes atraumatic Ears: hearing grossly normal bilaterally and external ears normal General nose exam: Normal external nose present, no nasal discharge noted and no epistaxis Face and sinus: Yes normal facial exam, No abrasion and No laceration Mouth: Normal oral and palatal mucosa present, no drooling and no muffled voice Eyes General: appearance normal, both eyes and all related structures Periorbital: periorbital findings normal Eyelids: Yes eyelids normal Conjunctivae: conjunctivae normal Pupils: Equal, round and reactive pupils present EOM: EOMs intact bilaterally Neck Neck: Yes normal visual inspection, Yes full ROM and Yes no lymphadenopathy Chest Chest palpation & inspection: normal inspection of the chest Resp Effort & Inspection: normal respiratory effort and able to speak in complete sentences GI Inspection: Yes normal to inspection Neuro General: patient oriented x3 and moves all extremities Cranial nerves: Yes Equal, round and reactive pupils present Cognition (Neuro): normal cognition Extrem General: Yes normal to inspection, Yes full ROM and Yes capillary refill normal Psych Appearance: grossly normal Mental Status: mental status grossly normal Affect: normal affect Attitude: cooperative Thought process: Normal thought process present Thought content: Normal thought content present Insight: Good insight present (Psych) Course Course Course Narrative: RME: Done by JUSTIN Jones 58-year-old male presents to the ED throat pain going into his chest for about a month. Patient denies any shortness of breath. Patient denies any fever or chills. Patient denies any weight loss, or flank pain. Patient hypertensive. Abdomen is benign. Oral exam negative for obvious signs of tonsillitis. Negative for lymphadenopathy. Labs EKG SARs ordered Medications Administered Discontinued Medications Generic Name Dose Route Start Last Admin Trade Name Freq PRN Reason Stop Dose Admin Omeprazole 20 mg 12/30/23 20:30 12/30/23 20:37 Omeprazole 20 Mg Capsule.Dr LOPEZ 12/30/23 20:31 20 mg ONCE ONE Administration Medical Decision Making Medical Decision Making MDM Narrative: Patient is a 58 year old assigned male at with a history of HTN and GERD presenting to the emergency department today with throat and chest pain x1 month. Patient's physical exam was unremarkable. Patient's blood work was unremarkable. Patient's EKG was unremarkable. Patient's chest x-ray showed no acute process. I explained my physical exam findings as well as all test results to the patient. I answered all questions asked by the patient. Patient's clinical presentation is most consistent with GERD. I stressed the importance of the patient taking his medication as directed (either prescribed or as the over the counter packaging recommends). I stressed the importance of the patient following up with his primary care provider. I stressed the importance of the patient returning to the emergency department immediately if his symptoms were to worsen or if he were to develop any dizziness, shortness of breath, difficulty breathing, chest pain, blurry vision, loss of vision, nausea, vomiting, abdominal pain, fever, chills, back pain, or any other complaints. Patient verbalized agreement and understanding with this treatment plan and discharge. Differential Diagnosis Differential Diagnoses: The differential diagnosis associated with the presentation includes GERD Throat pain Pharyngitis Esophagitis Admission/Observation Consideration of admission/observation: Escalation of care including admission/observation considered Patient would have been admitted to the hospital had his work up had any findings where hospital admission was appropriate and his clinical presentation warranted hospital admission. Lab Data [facility] Lab Attestation statement: I reviewed the patient's lab results. My interpretation of these results are in the MDM Rationale portion of this note. 12/30/23 18:52 12/30/23 18:52 Labs: Lab Results 12/30/23 Range/Units 18:52 WBC 7.6 (4.8-10.8) X10*3/uL RBC 4.93 (4.60-5.80) X10*6/uL Hgb 15.2 (14.0-18.0) g/dl Hct 42.9 (42.0-52.0) % MCV 87.0 (80.0-98.0) fL MCH 30.8 (27.0-33.0) pg MCHC 35.4 (31.0-36.0) g/dl RDW 13.1 (11.0-16.0) % Plt Count 207 (160-400) X10*3/uL MPV 8.8 L (9.4-12.4) fL Immature Gran % (Auto) 0.3 (0.0-0.4) % Neut % (Auto) 59.4 (45-73) % Lymph % (Auto) 31.1 (20-40) % [place] % (Auto) 7.5 (2-11) % Eos % (Auto) 1.3 (0-4) % Baso % (Auto) 0.4 (0-2) % Lymph # (Auto) 2.4 (1.2-4.9) X10*3/uL [place] # (Auto) 0.6 (0.1-1.2) X10*3/uL Eos # (Auto) 0.1 (0.0-0.4) X10*3/uL Baso # (Auto) 0.0 (0.0-0.2) X10*3/uL Abs Immat Gran (auto) 0.02 (0.00-0.03) X10*3/uL Absolute Neuts (auto) 4.5 (2.0-8.3) x10*3/uL Absolute Nucleated RBC 0.000 (0.0-0.012) X10*3/uL Nucleated RBC % (auto) 0.0 (0.0-0.2) /100WBC PT 11.1 (11.1-13.3) SEC INR 0.9 (0.9-1.1) APTT 31.4 (26.0-36.8) SEC Sodium 140 (135-145) mmol/L Potassium 3.4 (3.3-5.1) mmol/L Chloride 108 (96-108) mmol/L Carbon Dioxide 23 (22-29) mmol/L Anion Gap 12 (12-20) BUN 14 (9-16) mg/dL Creatinine 0.84 (0.5-1.4) mg/dL Estim Creat Clear Calc 103.1 Estimated GFR > 60 Random Glucose 151 H (60-115) mg/dL Calcium 9.5 (8.4-10.2) mg/dL Total Bilirubin 0.4 (0.0-1.0) mg/dL AST 28 (5-37) U/L ALT 27 (0-40) U/L Alkaline Phosphatase 58 (39-117) U/L Troponin I High Sens < 2.7 (<3.5-35.0) ng/L Total Protein 7.3 (6.5-8.0) g/dL Albumin 4.3 (3.5-5.0) g/dL Lipase 24 (8-78) U/L Influenza Type A (PCR) NEGATIVE (Negative) Influenza Type B (PCR) NEGATIVE (Negative) RSV RNA Qual (PCR) NEGATIVE (Negative) SARS-CoV-2 RNA (RT-PCR) NEGATIVE (Negative) S. pyogenes GrpA ANA MARÍA Negative (Negative) Independent Interpretation I performed an independent interpretation of an: EKG and Plain X-Ray Interpretation: My interpretation is in agreement with the radiologist's impression of this imaging study. - EXAMINATION: PORTABLE CHEST 1 VIEW CLINICAL INFORMATION: Pneumonia. COMPARISON: No recent pertinent prior studies are available for comparison. TECHNIQUE: Portable frontal view of the chest was obtained. FINDINGS: The lungs are well expanded. No focal infiltrate, effusion, edema, or pneumothorax. Cardiac and mediastinal silhouettes are within normal limits for technique. No acute bony abnormality seen. XR/XR chest 1V IMPRESSION: No evidence of acute disease. Dictated By: Erik Turcios MD Signed By: Electronically signed by Erik Turcios MD 12/30/232038 - Vent. Rate: 069 BPM Atrial Rate: 069 BPM P-R Int: 148 ms QRS Dur: 082 ms QT Int: 408 ms P-R-T Axes: 057 -05 053 degrees QTc Int: 437 ms Normal sinus rhythm Normal ECG No previous ECGs available DD/ 36 Radiology Impression Discussion of test interpretation with radiology: I have reviewed the radiologist's reading. Chronic Conditions Patient?s care impacted by: Hypertension Discharge Plan Discharge Clinical Impression: Acute sore throat, Headache, Chest pain, GERD (gastroesophageal reflux disease) Patient Disposition: Home, Self-Care Instructions: Chest Pain (DC), Pharyngitis (ED), Gastroesophageal Reflux Disease (DC), Acute Headache (DC) Additional Instructions: Your work up today was reassuring. Follow up with your primary care provider. Return to the emergency department immediately if your symptoms worsen or if you develop any dizziness, shortness of breath, difficulty breathing, chest pain, blurry vision, loss of vision, nausea, vomiting, abdominal pain, fever, chills, back pain, or any other complaints. Prescriptions: New omeprazole 20 mg capsule,delayed release(DR/EC) 20 mg PO DAILY Qty: 7 0RF No Action fluvastatin 20 mg capsule 20 mg PO BEDTIME Qty: 90 3RF cholecalciferol (vitamin D3) 50 mcg (2,000 unit) capsule 50 mcg PO DAILY ibuprofen 800 mg tablet 800 mg PO TID PRN (Reason: pain) 30 Days Qty: 90 1RF zinc 1 tab PO DAILY bisacodyl [Dulcolax (bisacodyl)] 5 mg tablet,delayed release (DR/EC) 10 mg PO BEDTIME 2 Days Qty: 4 0RF sodium,potassium,mag sulfates [Suprep Bowel Prep Kit] 17.5-3.13-1.6 gram recon soln 480 ml PO .COMPLEX Qty: 354 0RF Rx Instructions: 480 mL orally; FOR COLONOSCOPY PREP lisinopril 40 mg tablet 20 mg PO DAILY alfuzosin 10 mg tablet extended release 24 hr 10 mg PO DAILY Qty: 30 3RF Rx Instructions: administer after the same meal each day Referrals: Baljeet Castaneda, BUILDING [employer]LLUMINATING ENGINEER-[employer] [Primary Care Provider] - Interventions: ED Discharge Assessment Last Done: 12/30/23 20:58 Discharge Date/Time: 12/30/23 20:59 Print Language: Malagasy
[2023-12-30 18:57] LABS: MANUAL DIFF FLAG NO
[2023-12-30 18:59] LABS: Basophils Percent Auto 0.4 % (0-2); Eosinophils Absolute Auto 0.1 X10*3/uL (0.0-0.4); Eosinophils Percent Auto 1.3 % (0-4); Hematocrit 42.9 % (42.0-52.0); Hemoglobin 15.2 g/dl (14.0-18.0); Imm Gran Abs Auto 0.02 X10*3/uL (0.00-0.03); Imm Gran Pct Auto 0.3 % (0.0-0.4); Lymphocytes Absolute Auto 2.4 X10*3/uL (1.2-4.9); Lymphocytes Percent Auto 31.1 % (20-40); Mean Corpuscular HGB Conc 35.4 g/dl (31.0-36.0); Mean Corpuscular Hemoglobin 30.8 pg (27.0-33.0); Mean Platelet Volume 8.8 fL (9.4-12.4); Monocytes Absolute Auto 0.6 X10*3/uL (0.1-1.2); Monocytes Percent Auto 7.5 % (2-11); Neutrophils Absolute Auto 4.5 x10*3/uL (2.0-8.3); Neutrophils Percent Auto 59.4 % (45-73); Platelet Count 207 X10*3/uL (160-400); Red Blood Count 4.93 X10*6/uL (4.60-5.80); Red Cell Distribution Width 13.1 % (11.0-16.0); White Blood Count 7.6 X10*3/uL (4.8-10.8)
[2023-12-30 19:06] LABS: IDNOW Serial# 58CA691E; Strep A Nucleic Acid Negative (Negative)
[2023-12-30 19:11] LABS: INTERNATIONAL NORM RATIO 0.9 (0.9-1.1); Prothrombin Time 11.1 SEC (11.1-13.3)
[2023-12-30 19:13] LABS: Partial Thromboplastin Time 31.4 SEC (26.0-36.8)
[2023-12-30 19:17] LABS: Alanine Aminotransferase 27 U/L (0-40); Albumin Level 4.3 g/dL (3.5-5.0); Alkaline Phosphatase 58 U/L (39-117); Anion Gap 12 (12-20); Aspartate Amino Transferase 28 U/L (5-37); Bilirubin Total 0.4 mg/dL (0.0-1.0); Blood Urea Nitrogen 14 mg/dL (9-16); Calcium 9.5 mg/dL (8.4-10.2); Carbon Dioxide 23 mmol/L (22-29); Chloride 108 mmol/L (96-108); Creatinine Clr Calc Pharmacy 103.1; Estimated Glomerular Filt Rate > 60; Glucose Random 151 mg/dL (60-115); Lipase 24 U/L (8-78); Potassium 3.4 mmol/L (3.3-5.1); Sodium 140 mmol/L (135-145); Total Protein 7.3 g/dL (6.5-8.0)
[2023-12-30 19:27] LABS: Troponin-I High Sensitivity < 2.7 ng/L (<3.5-35.0)
[2023-12-30 19:35] LABS: Influenza A PCR NEGATIVE (Negative); Influenza B PCR NEGATIVE (Negative); Resp Syncy Virus RNA Qual PCR NEGATIVE (Negative); SARS COV2 PCR INHOUSE NEGATIVE (Negative)
[2023-12-30 20:00] VITALS: BP 139/93; PULSE 62; RESP 17; TEMP 36.8; O2SAT 98
[2023-12-30] MEDS: Omeprazole 20 MG CAPSULE.DR PO (20:37)
[2023-12-30 20:58] VITALS: BP 139/93; PULSE 62; RESP 17; TEMP 36.8; O2SAT 98
== END 2023-12-30 20:59 | disposition home or self-care (01) ==
PROVIDERS: Physician Assistant; Emergency Provider Emergency Medicine Emergency Medical Services; PCP Nurse Practitioner Family
DX: R07.0 Pain in throat (principal); M54.2 Cervicalgia; K21.9 Gastro-esophageal reflux disease without esophagitis; R07.89 Other chest pain; Z87.891 Personal history of nicotine dependence; Z79.899 Other long term (current) drug therapy; Z03.818 Encounter for observation for suspected exposure to other biological agents ruled out
CPT/HCPCS: 0241U; 71045; 80053; 83690; 84484; 85025; 85610; 85730; 87651; 93005; 99284

== ENCOUNTER → 2023-12-30 18:34 | Outpatient (BNV) | payer OTHER, SELFPAY | PROVIDERS: Emergency Provider Emergency Medicine Emergency Medical Services; PCP Nurse Practitioner Family; Visit Provider Internal Medicine Cardiovascular Disease | DX: R07.9 Chest pain, unspecified (principal) | CPT/HCPCS: 93010 ==

== ENCOUNTER 2024-01-15 09:00 | Outpatient (AMB) | payer OTHER, SELFPAY ==
--- NOTE | 2024-01-15 09:24 | A.OFFPC_ITS ---
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 Accompanied by: Self / Same As Patient Allergies statins Adverse Reaction (Intermediate, Uncoded 01/15/24 09:26) Muscle aches Medication List - Last Reconciled 01/15/24 by AHSAN Felix- alfuzosin ER 10 mg PO DAILY bisacodyl (Dulcolax (bisacodyl)) 10 mg (2 x 5 mg) PO BEDTIME 2 days cholecalciferol (vitamin D3) 50 mcg PO DAILY ibuprofen 800 mg PO TID PRN 30 days lisinopril 40 mg PO DAILY omeprazole 20 mg PO DAILY [zinc 1 tab PO DAILY] Tobacco use date assessed: 06/27/23 Dental Screening Dental Screen Date: 06/27/23 HPI [facility] [place] 12/29 sore neck/ throat HPI Details went to ER on 12/29, please see notes. EKG was WNL, chest XR neg, blood work benign. Today, pt reports my neck hurts , pointing to his anterior neck/thyroid region. He reports since starting the statin (fluvastatin) and prostate medication. Since stopping these meds approx 2 weeks ago, his headache went away, and neck pain decreased slgihtly. Pt reports soreness still, while visually palpating his upper chest/collar bone regions. He further reports having a hiatal hernia in the past. Pt denies any radicular symptoms, denies dysphasia though, i definitely feels different than normal , denies any SOB, or difficulty breathing, denies fevers/chills. He does report more phlegm production. Note: sending livalo (generic) to start after symptoms cease. 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 Current occupational exposures/hazards: No Cognitive needs: No Hearing needs: No Vision needs: No Questionnaire PHQ-9 Over the last 2 weeks, how often have you been bothered by any of the following problems? 1. Little interest or pleasure in doing things: not at all 2. Feeling down, depressed, or hopeless: not at all 3. Trouble falling or staying asleep, or sleeping too much: not at all 4. Feeling tired or having little energy: not at all 5. Poor appetite or overeating: not at all 6. Feeling bad about yourself - or that you are a failure or have let yourself or your family down: not at all 7. Trouble concentrating on things, such as reading the newspaper or watching television: not at all 8. Moving or speaking so slowly that other people could have noticed. Or the opposite - being so fidgety or restless that you have been moving around a lot more than usual: not at all 9. Thoughts that you would be better off or of hurting yourself in some way: not at all Total score: 0 Depression Screening Interpretation: Negative Depression Screening Done: Yes 41966 - PHQ-9 Billing: Yes Source: Developed by Drs. Gigi Chapman, Danii Erazo, Regis Urbina and colleagues, with an educational rosa from [employer]. Thrive Questionnaire Date Thrive assessed: 06/27/23 AUDIT C Alcohol Use Questionnaire (AUDIT-C) 1. How often do you have a drink containing alcohol?: 2-3 times a week 2. How many drinks containing alcohol do you have on a typical day when you are drinking?: 3 or 4 3. How often do you have six or more drinks on one occasion?: Monthly Total Score: 6 Score Reviewed/Action Taken: Yes EFREN-7 AMB Questionnaire EFREN-7 Date EFREN - 7 assessed: 01/31/24 Source: Developed by Drs. Gigi Chapman, Danii Erazo, Regis Urbina and colleagues, with an educational rosa from [employer]. Physical exam (Primary Care) Vital Signs: Last Vital Signs Pulse 63 01/15/24 09:25 BP 138/86 01/15/24 09:25 Pulse Ox 99 01/15/24 09:25 Oxygen Delivery Method Room Air 01/15/24 09:25 BMI result Body Mass Index 28.0 Tobacco/Smoking Status: Tobacco use Status Tobacco use date assessed 06/27/23 01/15/24 09:27 Patient Tobacco Use Status Former Tobacco user 01/15/24 09:27 e-Cigarette/Vaping Use Never Used 01/15/24 09:27 PHQ-9: PHQ-9 Score PHQ-9: Total score 0 01/15/24 09:27 Depression Screening Interpretation: Negative Thrive Assessment: Date of Thrive Assessment Date Thrive assessed 06/27/23 01/15/24 09:27 Const General: cooperative, healthy appearing, comfortable and no acute distress HENMT Head: Yes normal to inspection Ears: hearing grossly normal bilaterally Mouth: Normal oral and palatal mucosa present Throat: Yes posterior oropharynx normal Neck Neck: Yes no lymphadenopathy Thyroid: Thyroid normal Chest Chest palpation & inspection: normal palpation of entire chest wall Resp Auscultation: clear to auscultation bilaterally Cardio Rate: regular rate Rhythm: regular rhythm Heart sounds: S1 normal heart sound present and S2 normal heart sound present Extrem General: Yes normal to inspection Psych Appearance: grossly normal Mental Status: mental status grossly normal Speech and movement: Normal speech and movement present Affect: normal affect Attitude: cooperative Thought process: Normal thought process present Thought content: Normal thought content present Insight: Good insight present (Psych) Judgement: Good judgement present (Psych) Assessment and Plan Assessment & Plan (1) Difficulty swallowing: Code(s): R13.10 - Dysphagia, unspecified Plan: barium swallow ordered, neck US, sent message to schedulers at GI to add on endoscopy with his upcoming colon screen (2) Discomfort of neck: Comment: anterior neck discomfort Code(s): M54.2 - Cervicalgia Orders: Orders FL barium swallow modified Today R13.10 - Dysphagia, unspecified US soft tiss head and/or neck Today M54.2 - Cervicalgia Medications: New pitavastatin calcium (Livalo) 1 mg PO DAILY 30 tabs 3RF Coding Level of Care Code Est Pt Level 3 (41461) Diagnoses Difficulty swallowing R13.10 Discomfort of neck M54.2
[2024-01-15 09:25] VITALS: BP 138/86; PULSE 63; O2SAT 99; BMI 28.0
== END 2024-01-15 10:14 | disposition home or self-care (01) ==
PROVIDERS: PCP Nurse Practitioner Family; Visit Provider Nurse Practitioner Family
DX: R13.10 Dysphagia, unspecified (principal); M54.2 Cervicalgia
CPT/HCPCS: 99213

== ENCOUNTER 2024-01-24 15:12 | Outpatient (REF) | payer OTHER, SELFPAY ==
--- NOTE | ~2024-01-24 | US_ITS ---
EXAMINATION: US SOFT TISSUE HEAD/NECK CLINICAL INFORMATION: Cervicalgia. COMPARISON: Thyroid ultrasound 01/15/2018. TECHNIQUE: Linear transducer grayscale and color Doppler examination of all neck zones in addition to bilateral submandibular glands. FINDINGS: The cutaneous, subcutaneous, muscular and fascial planes are unremarkable. The submandibular glands are symmetric and show normal echotexture, no ductal dilatation or sialolith. No mass is demonstrated. There is no lymphadenopathy or fluid collection. No foreign body is seen. US/US soft tiss head and/or neck IMPRESSION: Unremarkable examination. Electronically signed by: Baljeet Weinstein MD 01/29/2024 08:54 PM EDT
== END 2024-01-24 15:13 | disposition home or self-care (01) ==
LOC: HO.HMGCX 15:12
PROVIDERS: PCP Nurse Practitioner Family; Visit Provider Nurse Practitioner Family
DX: M54.2 Cervicalgia (principal)
CPT/HCPCS: 76536

== ENCOUNTER 2024-01-31 10:11 | Outpatient (AMB) | payer OTHER, SELFPAY ==
--- NOTE | 2024-01-31 14:53 | A.OFFVIS_ITS ---
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 Allergies statins Adverse Reaction (Intermediate, Uncoded 01/31/24 14:55) Muscle aches Medication List - Last Reconciled 01/31/24 by Carla Segovia MD alfuzosin ER 10 mg PO DAILY bisacodyl (Dulcolax (bisacodyl)) 10 mg (2 x 5 mg) PO BEDTIME 2 days cholecalciferol (vitamin D3) 50 mcg PO DAILY ibuprofen 800 mg PO TID PRN 30 days lisinopril 40 mg PO DAILY omeprazole 20 mg PO DAILY pitavastatin calcium (Livalo) 1 mg PO DAILY tamsulosin (Flomax) 0.4 mg PO BEDTIME [zinc 1 tab PO DAILY] HPI Comments Details: 01/31/24--FU microscopic hematuria, BPH symptoms, Ramin states that he did not tolerate the alfuzosin, made him dizzy. 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 I will trial flomax at bedtime -- if he has similar SE --he is to call and let our nurse know. Discussed other treatments for BPH include laser of prostate, and the patient wants to trial another med first. Discussed CT Urogram results, small right renal cyst otherwise WNL. Review of chart: 11/08/23--Ramin is here for office cystoscopy, he had CT Urogram on 10/23/23, official report pending. I have reviewed films. Cystoscopy findings: Mild bladder wall thickening, prostate enlarged, no suspicious bladder lesions visualized. Discussed trial of alfuzosin. 08/23/2023-- Ramin is a 67-year-old male who is here for evaluation for microscopic hematuria. The patient has a history of nicotine use. He stopped smoking cigarettes about 30 years, but smokes cigars occasionally. I have discussed nicotine is a risk factor for urinary tract cancers. I have reviewed renal ultrasound December 2022 kidneys negative for calculi are masses, bladder wall thickening noted. I have discussed with the patient that this may be secondary to enlarged prostate and bladder changes related to compensation of the bladder muscle with voiding. I have discussed the importance of further evaluation with office cystoscopy. The patient complains of urinary frequency he drinks 2 large greater than 10 oz cups of coffee during the day and states that he does drink a lot of water as well. I have discussed cutting back on caffeine intake. He is up 1-2 times at night to urinate. Denies gross hematuria. Plan discussed re-evaluate upper urinary tract with CT urogram, urine for cytology, follow-up office cystoscopy [facility] Medical History Screening for colon cancer Chest discomfort Finger joint swelling Sliver Lipid disorder Screening PSA (prostate specific antigen) Physical exam Epigastric pain Abdominal bloating Dyspepsia Chest pain Viral syndrome Chronic pain High cholesterol Surgical History H/O colonoscopy Social History Housing: House Patient Tobacco Use Status: Former Tobacco user Years Smoked: 30 years ago e-Cigarette/Vaping Use: Never Used Second Hand Smoke Exposure: No service: No Current occupational status: employed 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 Current occupational exposures/hazards: No Cognitive needs: No Hearing needs: No Vision needs: No Review of Systems Const All systems reviewed & are unremarkable except as noted in HPI and below Reports no additional complaints Eyes Reports no additional complaints ENT Reports no additional complaints Card Reports no additional complaints Resp Reports no additional complaints GI Reports no additional complaints Reports as per HPI Musc Reports no additional complaints Skin/Breast Reports system reviewed and no additional complaints, except as documented Neuro Reports no additional complaints Psych Reports no additional complaints Endo Reports no additional complaints Byron/Lymph Reports no additional complaints Aller/Immun Reports no additional complaints Telehealth Telehealth Telehealth Platform: [facility] Location of provider rendering services: practice address Location of patient: address on file Patient Identification confirmed using: Name, : Yes Telehealth method: voice only Patient verbally consented to treatment: Yes Patient verbally consented to billing insurance company: Yes Patient informed of any privacy concerns related to visit: Yes Minutes spent on Phone/Video with Pt.: 16 Results Reviewed Results Reviewed: Date of Service: 10/23/23 CT ABDOMEN AND PELVIS WITHOUT AND WITH CONTRAST CLINICAL INFORMATION: Nicotine dependence, unspecified, uncomplicated. COMPARISON: None available. TECHNIQUE: Noncontrast CT of the abdomen and pelvis is performed followed by split bolus contrast-enhanced images using 85 mL Omnipaque 350 contrast.? Postcontrast imaging is performed during the combined nephrogram and excretion phase. Sagittal and coronal reformatted images were obtained on the technologist's workstation for both the precontrast and postcontrast phases. This CT examination was performed using dose optimization techniques as appropriate, variously including the following: *Automated exposure control *Adjustment of mA and/or kV according to patient size (this includes techniques or standardized protocols for targeted exams where dose is matched to indication/reason for exam; i.e. extremities or head) *Use of iterative reconstruction technique DLP: 634.0 mGy-cm FINDINGS: LUNG BASES: The visualized lung bases are unremarkable. LIVER, GALLBLADDER, AND BILIARY TREE: The liver is normal in size, shape, and attenuation. No focal hepatic lesion or biliary ductal dilatation is present. The gallbladder is unremarkable with no evidence of radiopaque gallstones, gallbladder wall thickening, or obvious pericholecystic inflammatory changes. PANCREAS: Unremarkable. SPLEEN: Unremarkable. ADRENAL GLANDS: Unremarkable. KIDNEYS AND URETERS: The kidneys are normal in size, shape, and attenuation. No hydronephrosis, hydroureter, or calculi seen. No perinephric stranding. The collecting systems appear normal with no mucosal abnormality or filling defect. A benign right-sided posterior exophytic cortical 1 cm Bosniak class I renal cyst is noted which requires no additional imaging or followup. No solid renal masses are seen. BLADDER: Unremarkable. GASTROINTESTINAL TRACT: The small and large bowel are unremarkable aside from a few scattered colonic diverticula without diverticulitis. The appendix is unremarkable. ABDOMINAL WALL: No significant hernia is appreciated. LYMPH NODES: Normal. VASCULAR: Unremarkable. PELVIC VISCERA: Mild BPH. Seminal vesicles appear normal. OSSEUS STRUCTURES: Degenerative changes are present at L5-S1 with grade 1 retrolisthesis of L5 upon S1. No bony destructive lesions are seen. IMPRESSION: 1. A cause for the patient's hematuria has not been found. 2. Incidental note made of benign Bosniak class I right renal cyst which requires no additional imaging or followup, mild BPH and degenerative changes L5-S1. Collected: 08/23/23 Location: [facility] Received: 08/24/23 Diagnosis Urine: Negative for high-grade urothelial carcinoma. COMMENT: Examination of a monolayer preparation slide shows scattered benign urothelial cells, occasional benign squamous cells, and occasional inflammatory cells and red blood cells. Clinical History Microscopic hematuria Material Received Urine Gross Description Received are 77 cc of clear yellow fluid from which a ThinPrep slide is prepared. Assessment & Plan Assessment & Plan (1) Microscopic hematuria: Code(s): R31.29 - Other microscopic hematuria Category: Medical (2) Urinary frequency: Code(s): R35.0 - Frequency of micturition Category: Medical (3) Nicotine dependence with current use: Comment: pt smokes cigars Code(s): F17.200 - Nicotine dependence, unspecified, uncomplicated Category: Medical Plan Cystoscopy findings mild to moderate trabeculations, no suspicious bladder lesions. Trial alfuzosin 10 mg daily. Follow-up 3 months to evaluate improv ement in urinary symptoms Medications: New tamsulosin (Flomax) 0.4 mg PO BEDTIME 30 caps 3RF Discontinued alfuzosin ER administer after the same meal each day Discontinued Reason: Doctor's Order 10 mg PO DAILY 30 tabs 3RF Coding Level of Care Code Tele Est Pt Level 4 (83646) Diagnoses Microscopic hematuria R31.29 Urinary frequency R35.0 Nicotine dependence with current use F17.200
== END 2024-01-31 16:42 | disposition home or self-care (01) ==
PROVIDERS: PCP Nurse Practitioner Family; Visit Provider Urology
DX: R31.29 Other microscopic hematuria (principal); R35.0 Frequency of micturition; F17.200 Nicotine dependence, unspecified, uncomplicated
CPT/HCPCS: 99214

== ENCOUNTER → 2024-01-31 10:11 | Outpatient (BNVA) | payer OTHER, SELFPAY | PROVIDERS: PCP Nurse Practitioner Family; Visit Provider Urology ==

== ENCOUNTER 2024-04-30 14:07 | Outpatient (AMB) | payer OTHER, SELFPAY ==
--- NOTE | 2024-04-29 16:55 | A.OFFVIS_ITS ---
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 Ramin states he was not able to tolerate the tamsulosin he got dizziness again and headache. He does feel that his voiding has improved he states after I did the office cystoscopy he feels that his urinary symptoms are better he is only getting up 1 time at night now. Bladder scan PVR 88 mL. Will continue to monitor BPH symptoms follow-up in 1 year PSA prior Review of chart: 01/31/24--FU microscopic hematuria, BPH symptoms, Ramin states that he did not tolerate the alfuzosin, made him dizzy. 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 I will trial flomax at bedtime -- if he has similar SE --he is to call and let our nurse know. Discussed other treatments for BPH include laser of prostate, and the patient wants to trial another med first. Discussed CT Urogram results, small right renal cyst otherwise WNL. 11/08/23--Ramin is here for office cystoscopy, he had CT Urogram on 10/23/23, official report pending. I have reviewed films. Cystoscopy findings: Mild bladder wall thickening, prostate enlarged, no suspicious bladder lesions visualized. Discussed trial of alfuzosin. 08/23/2023-- Ramin is a 67-year-old male who is here for evaluation for microscopic hematuria. The patient has a history of nicotine use. He stopped smoking cigarettes about 30 years, but smokes cigars occasionally. I have discussed nicotine is a risk factor for urinary tract cancers. I have reviewed renal ultrasound December 2022 kidneys negative for calculi are masses, bladder wall thickening noted. I have discussed with the patient that this may be secondary to enlarged prostate and bladder changes related to compensation of the bladder muscle with voiding. I have discussed the importance of further evaluation with office cystoscopy. The patient complains of urinary frequency he drinks 2 large greater than 10 oz cups of coffee during the day and states that he does drink a lot of water as well. I have discussed cutting back on caffeine intake. He is up 1-2 times at night to urinate. Denies gross hematuria. Plan discussed re-evaluate upper urinary tract with CT urogram, urine for cytology, follow-up office cystoscopy [facility] Medical History BPH (benign prostatic hyperplasia) Renal cyst, right Screening for colon cancer Chest discomfort Finger joint swelling Sliver Lipid disorder Screening PSA (prostate specific antigen) Physical exam Epigastric pain Abdominal bloating Dyspepsia Chest pain Viral syndrome Chronic pain High cholesterol Surgical History H/O colonoscopy Social History Housing: House Patient Tobacco Use Status: Former Tobacco user Years Smoked: 30 years ago e-Cigarette/Vaping Use: Never Used Second Hand Smoke Exposure: No service: No Current occupational status: employed 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 Current occupational exposures/hazards: No Cognitive needs: No Hearing needs: No Vision needs: No Review of Systems Const All systems reviewed & are unremarkable except as noted in HPI and below Reports no additional complaints Eyes Reports no additional complaints ENT Reports no additional complaints Card Reports no additional complaints Resp Reports no additional complaints GI Reports no additional complaints Reports as per HPI Musc Reports no additional complaints Skin/Breast Reports system reviewed and no additional complaints, except as documented Neuro Reports no additional complaints Psych Reports no additional complaints Endo Reports no additional complaints Byron/Lymph Reports no additional complaints Aller/Immun Reports no additional complaints Office Procedures Post Void Residual Post Residual Void Post Void Residual (PVR): 88 [id number] Void Residual by ultrasound Results AMB Urinalysis, Automated UA Leukoctes 0 Jerry/uL Last Edit by Steven El on 04/30/24 14:32 UA Nitrite Last Edit by Steven El on 04/30/24 14:32 UA Urobilinogen 0.2 mg/dL Last Edit by Steven El on 04/30/24 14:32 UA Protein 0 mg/dL Last Edit by Steven El on 04/30/24 14:32 UA pH 6.5 Last Edit by Steven El on 04/30/24 14:32 UA Blood 10 Shawn/uL Last Edit by Steven El on 04/30/24 14:32 UA Specific Steinauer 1.015 Last Edit by Steven El on 04/30/24 14:32 UA Ketone Negative Last Edit by Steven El on 04/30/24 14:32 UA Bilirubin 0 mg/dL Last Edit by Steven El on 04/30/24 14:32 UA Glucose 0 mg/dL Last Edit by Steven El on 04/30/24 14:32 Results Reviewed Results Reviewed: Laboratory Last Values Urine pH (Auto) 6.5 04/30/24 14:31 Specific Steinauer (Auto) 1.015 04/30/24 14:31 Urine Protein (Auto) 0 mg/dL 04/30/24 14:31 Glucose (UA)(Auto) 0 mg/dL 04/30/24 14:31 Urine Ketones (Auto) Negative 04/30/24 14:31 Urine Blood (Auto) 10 Shawn/uL 04/30/24 14:31 Urine Bilirubin (Auto) 0 mg/dL 04/30/24 14:31 Urine Urobilinogen (Auto) 0.2 mg/dL 04/30/24 14:31 Leukocyte Esterase (Auto) 0 Jerry/uL 04/30/24 14:31 Date of Service: 10/23/23 CT ABDOMEN AND PELVIS WITHOUT AND WITH CONTRAST CLINICAL INFORMATION: Nicotine dependence, unspecified, uncomplicated. COMPARISON: None available. TECHNIQUE: Noncontrast CT of the abdomen and pelvis is performed followed by split bolus contrast-enhanced images using 85 mL Omnipaque 350 contrast.? Postcontrast imaging is performed during the combined nephrogram and excretion phase. Sagittal and coronal reformatted images were obtained on the technologist's workstation for both the precontrast and postcontrast phases. This CT examination was performed using dose optimization techniques as appropriate, variously including the following: *Automated exposure control *Adjustment of mA and/or kV according to patient size (this includes techniques or standardized protocols for targeted exams where dose is matched to indication/reason for exam; i.e. extremities or head) *Use of iterative reconstruction technique DLP: 634.0 mGy-cm FINDINGS: LUNG BASES: The visualized lung bases are unremarkable. LIVER, GALLBLADDER, AND BILIARY TREE: The liver is normal in size, shape, and attenuation. No focal hepatic lesion or biliary ductal dilatation is present. The gallbladder is unremarkable with no evidence of radiopaque gallstones, gallbladder wall thickening, or obvious pericholecystic inflammatory changes. PANCREAS: Unremarkable. SPLEEN: Unremarkable. ADRENAL GLANDS: Unremarkable. KIDNEYS AND URETERS: The kidneys are normal in size, shape, and attenuation. No hydronephrosis, hydroureter, or calculi seen. No perinephric stranding. The collecting systems appear normal with no mucosal abnormality or filling defect. A benign right-sided posterior exophytic cortical 1 cm Bosniak class I renal cyst is noted which requires no additional imaging or followup. No solid renal masses are seen. BLADDER: Unremarkable. GASTROINTESTINAL TRACT: The small and large bowel are unremarkable aside from a few scattered colonic diverticula without diverticulitis. The appendix is unremarkable. ABDOMINAL WALL: No significant hernia is appreciated. LYMPH NODES: Normal. VASCULAR: Unremarkable. PELVIC VISCERA: Mild BPH. Seminal vesicles appear normal. OSSEUS STRUCTURES: Degenerative changes are present at L5-S1 with grade 1 retrolisthesis of L5 upon S1. No bony destructive lesions are seen. IMPRESSION: 1. A cause for the patient's hematuria has not been found. 2. Incidental note made of benign Bosniak class I right renal cyst which requires no additional imaging or followup, mild BPH and degenerative changes L5-S1. Collected: 08/23/23 Location: .LAB Received: 08/24/23 Diagnosis Urine: Negative for high-grade urothelial carcinoma. COMMENT: Examination of a monolayer preparation slide shows scattered benign urothelial cells, occasional benign squamous cells, and occasional inflammatory cells and red blood cells. Clinical History Microscopic hematuria Material Received Urine Gross Description Received are 77 cc of clear yellow fluid from which a ThinPrep slide is prepared. Assessment & Plan Assessment & Plan (1) Microscopic hematuria: Code(s): R31.29 - Other microscopic hematuria Category: Medical (2) Urinary frequency: Code(s): R35.0 - Frequency of micturition Category: Medical (3) Nicotine dependence with current use: Comment: pt smokes cigars Code(s): F17.200 - Nicotine dependence, unspecified, uncomplicated Category: Medical Plan fu one year PSA prior Orders: Orders AMB Urinalysis Automated Today Z13.9 - Encounter for screening, unspecified AMB Post Void Residual by ultrasound Today R35.0 - Frequency of micturition Patient Instructions: The patient had an opportunity to ask questions regarding treatment plan. The patient expressed understanding and agreement with the above treatment plan. The patient is aware they should contact our office by phone for worsening of their current condition or the appearance of new symptoms. Compliance is encouraged with any medications and followup testing that is ordered. It is a privilege to be allowed the opportunity to participate in the urologic care of your patient. If you have any questions or concerns regarding treatment for the above conditions please do not hesitate to contact me. The office telephone contact is [phone]. This note is constructed in part using voice recognition software. While every effort has been made to ensure accuracy admitting coordinator errors may have been included. Yours sincerely, Carla Segovia MD Coding Level of Care Code Est Pt Level 3 (12372) Diagnoses Microscopic hematuria R31.29 Urinary frequency R35.0 Nicotine dependence with current use F17.200 CPT Codes Post Residual Void - PVR CPT Code: 21677-Wtxk Void Residual by ultrasound ([id number])
== END 2024-04-30 14:49 | disposition home or self-care (01) ==
PROVIDERS: PCP Nurse Practitioner Family; Visit Provider Urology
DX: R31.29 Other microscopic hematuria (principal); R35.0 Frequency of micturition; F17.200 Nicotine dependence, unspecified, uncomplicated; Z13.9 Encounter for screening, unspecified
CPT/HCPCS: 99213

== ENCOUNTER → 2024-04-30 14:07 | Outpatient (BNVA) | payer OTHER, SELFPAY | PROVIDERS: PCP Nurse Practitioner Family; Visit Provider Urology | DX: R31.29 Other microscopic hematuria (principal); R35.0 Frequency of micturition; Z87.891 Personal history of nicotine dependence | CPT/HCPCS: 51798; 81003; 99212 ==

== ENCOUNTER 2024-05-13 15:45 | Outpatient (AMB) | payer OTHER, SELFPAY ==
[2024-05-13 15:49] VITALS: BP 138/90; PULSE 66; O2SAT 98; BMI 28.4
--- NOTE | 2024-05-13 15:49 | A.OFFPC_ITS ---
Vital Signs 05/13/24 15:49 05/13/24 16:35 Height 5 ft 8 in Weight 187 lb BMI 28.4 BP 138/90 H 136/86 Blood Pressure Location Rt brachial Rt brachial Position Sitting Sitting Pulse 66 Pulse Source Pulse Oximeter Pulse Oximetry (%) 98 Intake Visit Reasons: 4 month follow up Allergies statins Adverse Reaction (Intermediate, Uncoded 05/13/24 15:49) Muscle aches Tobacco use date assessed: 06/27/23 Dental Screening Dental Screen Date: 06/27/23 HPI 4 month follow up HPI Details Chief Complaint Patient concerns regarding hypertension management. History of Present Illness The patient is a 58-year-old male presenting with concerns regarding hypertension management. He reports being on a medication prescribed by a urologist, but chose not to continue as he found it inappropriate. He describes a history of elevated blood pressure, currently managed with a reduced dose of his prescribed medication, taking only half the intended dosage (20 mg instead of 40 mg of lisinopril), leading to uncertainty about its efficacy. Social History - Discusses details about his home [employer] system and low humidity in the house. - Has a preference for cooler temperatur es and uses wood heating extensively. 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 Health Maintenance - Follow-up with colonoscopy screening s cheduled for June. - Planning to have labs conducted in Jun after the holiday season. Review of Systems - Cardiovascular: Reports intermittent c hest discomfort. - Musculoskeletal: Reports knee crepitus and a hand injury. - Respiratory: Denies shortness of breat h. - General: Reports episodes of losing ba [place]. - Neurological: Denies a history of migr aines or recent concussions. Physical Exam General: Cooperative, healthy appearing, comfortable, no acute distress and well developed Orientation: Patient oriented x3 Limitations: No limitations Head: Normal to inspection Ears: Hearing grossly normal bilaterally Nose: Normal external nose present Face and sinus: Normal facial exam Eyes: Appearance normal, both eyes and all related structures Neck: Normal visual inspection and Yes full ROM; patient reports pain in the ne ck, sometimes tightness Respiratory: Normal respiratory effort and able to speak in complete sentences. Clear to auscultation bilaterally Cardiovascular: Regular rate and rhythm. Normal S1 and S2; patient reports chest discomfort in the medial pectoral area, sometimes with motion GI: Normal to inspection. Soft to palpation and nontender Skin: No rashes or lesions noted Neuro: Patient oriented x3; patient reports occasional headaches, history of head trauma, and recent balance issues Extremities: Normal to inspection; no edema Results - labs ordered Plan - Increase dosage of hypertension medica tion (lisinopril) to the prescribed 40 mg as there are no issues with current dosing at half-strength - Suggested evaluating environmental hum idity adjustments to address dryness related complaints. - Scheduled laboratory work for June to check overall health status including results post-holiday dietary changes. - Confirm and proceed with the planned c olonoscopy in June. - Advise on the effective hydration meth ods and potential environmental adjustments if dryness continues. -recommend taking his BP at home, writin g values down, and i will see him in the near future. Patient was informed and verbally consented to the use of an ambient scribe for clinic note documentation during this visit. Discussion Notes In today?s visit, I discussed with the patient the importance of medication compliance in effectively managing essential hypertension. We agreed to increase the dosage to meet the prescribed amount. I emphasized the importance of tracking blood pressure at home to better understand fluctuations. For his headaches, I explained the possibility they may not be directly related to blood pressure due to the lack of significant head trauma or history of migraines. As for his dry mouth, I addressed potential environmental factors and lifestyle adjustments, suggesting an increase in humidity at home. We agreed on conducting labs in June, aligning with his upcoming colonoscopy. Patient Instructions - Take the full prescribed dosage of you r hypertension medication (40 mg). - Consider using a humidifier to increas e your home?s humidity levels. - Schedule follow-up labs in June to coincide with your colonoscopy. - Track your blood pressure at home tony floyd. - Note any changes in headache patterns and report persistent symptoms. - Follow up with additional recommendati ons from the urologist for further management. 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 Current occupational exposures/hazards: No Cognitive needs: No Hearing needs: No Vision needs: No Questionnaire PHQ-9 Over the last 2 weeks, how often have you been bothered by any of the following problems? 1. Little interest or pleasure in doing things: not at all 2. Feeling down, depressed, or hopeless: not at all 3. Trouble falling or staying asleep, or sleeping too much: not at all 4. Feeling tired or having little energy: not at all 5. Poor appetite or overeating: not at all 6. Feeling bad about yourself - or that you are a failure or have let yourself or your family down: not at all 7. Trouble concentrating on things, such as reading the newspaper or watching television: not at all 8. Moving or speaking so slowly that other people could have noticed. Or the opposite - being so fidgety or restless that you have been moving around a lot more than usual: not at all 9. Thoughts that you would be better off or of hurting yourself in some way: not at all Total score: 0 Depression Screening Interpretation: Negative Depression Screening Done: Yes 07310 - PHQ-9 Billing: Yes Source: Developed by Drs. Gigi Chapman, Danii Erazo, Regis Urbina and colleagues, with an educational rosa from [email or web address]. Thrive Questionnaire Date Thrive assessed: 05/13/24 I am a: Patient What is your living situation today?: I have a steady place to live Within the past 12 months, did the food you bought not last and you didn't have the money to get more?: I choose not to answer this question Within the past 12 months, did you worry whether your food would run out before you got money to buy more?: I choose not to answer this question Do you have trouble paying for medicines?: I choose not to answer this question Do you have trouble getting transportation to medical appointments?: I choose not to answer this question Do you have trouble paying your heating and electricity bill?: I choose not to answer this question Do you have trouble taking care of your child, family member or friend?: I choose not to answer this question Do you have trouble with day-to-day activities such as bathing, preparing meals, shopping, managing finances, etc.?: I choose not to answer this question Are you currently unemployed and looking for a job?: I choose not to answer this question Are you interested in more education?: I choose not to answer this question Please select the resources that you would like help with: None Currently or been in a relationship where the following occur: I choose not to answer THRIVE Score: 0 AUDIT C Alcohol Use Questionnaire (AUDIT-C) 1. How often do you have a drink containing alcohol?: Monthly or less 2. How many drinks containing alcohol do you have on a typical day when you are drinking?: 3 or 4 3. How often do you have six or more drinks on one occasion?: Less than monthly Total Score: 3 Score Reviewed/Action Taken: Yes EFREN-7 AMB Questionnaire EFREN-7 Date EFREN - 7 assessed: 05/13/24 Feeling nervous, anxious, or on edge: 0 = Not at all Not being able to stop or control worryin = Not at all Worrying too much about different things: 0 = Not at all Trouble relaxin = Not at all Being so restless that it is hard to sit still: 0 = Not at all Becoming easily annoyed or irritable: 0 = Not at all Feeling afraid as if something awful might happen: 0 = Not at all Total EFREN-7 score (0-4 normal; 5-9 mild; 10-14 moderate; 15-21 severe): 0 Source: Developed by Drs. Gigi Chapman, Danii Erazo, Regis Urbina and colleagues, with an educational rosa from [email or web address]. EFREN-7 Assessment Billing EFREN-7 Assessment Tool: EFREN-7 Assessment 21223 Physical exam (Primary Care) Vital Signs: Last Vital Signs Pulse 66 05/13/24 15:49 BP 138/90 H 05/13/24 15:49 Pulse Ox 98 05/13/24 15:49 BMI result Body Mass Index 28.4 Tobacco/Smoking Status: Tobacco use Status Tobacco use date assessed 06/27/23 05/13/24 15:49 Patient Tobacco Use Status Former Tobacco user 05/13/24 15:49 e-Cigarette/Vaping Use Never Used 05/13/24 15:49 PHQ-9: PHQ-9 Score PHQ-9: Total score 0 05/13/24 16:33 Depression Screening Interpretation: Negative Thrive Assessment: Date of Thrive Assessment Date Thrive assessed 05/13/24 05/13/24 15:49 Currently or been in a relationship where the following occur: I choose not to a nswer Coding Level of Care Code Est Pt Level 3 (47152) Diagnoses HTN (hypertension), benign I10 Additional Codes EFREN-7 Assessment Billing - EFREN-7 Assessment Tool: EFREN-7 Assessment 41756 ([id number]) PHQ-9 - 03642 - PHQ-9 Billing: Yes ([id number]) Assessment & Plan Assessment & Plan (1) HTN (hypertension), benign: Code(s): I10 - Essential (primary) hypertension Category: Medical Plan . Orders: Orders Comprehensive Canmer. Panel Fast Today I10 - Essential (primary) hypertension Lipid Panel Today I10 - Essential (primary) hypertension Complete Blood Count Auto Diff Today I10 - Essential (primary) hypertension TSH reflex Free T4 Today I10 - Essential (primary) hypertension UA CC w/rflx Micro + Cult Today I10 - Essential (primary) hypertension
[2024-05-13 16:35] VITALS: BP 136/86
== END 2024-05-13 16:51 | disposition home or self-care (01) ==
PROVIDERS: PCP Nurse Practitioner Family; Visit Provider Nurse Practitioner Family
DX: I10 Essential (primary) hypertension (principal)

== ENCOUNTER → 2024-05-13 15:45 | Outpatient (BNVA) | payer OTHER, SELFPAY | PROVIDERS: PCP Nurse Practitioner Family; Visit Provider Nurse Practitioner Family | DX: I10 Essential (primary) hypertension (principal) | CPT/HCPCS: 96127; 99212 ==

== ENCOUNTER 2024-06-12 11:48 | Outpatient (AMB) | payer OTHER, SELFPAY ==
--- NOTE | 2024-06-12 12:24 | AM.OFFWIN_ITS ---
Intake Vital Signs 06/12/24 12:25 Height 5 ft 8 in Weight 187 lb BMI 28.4 BP 120/80 Blood Pressure Location Rt brachial Position Sitting Pulse 67 Pulse Source Pulse Oximeter Temp 98.1 F Temp Source Oral Pulse Oximetry (%) 95 Oxygen Delivery Method Room Air Intake Visit Reasons: EP Back soreness Intake Note: Patient here for upper back pain when taking a deep breath which started sunday. Patient Tobacco Use Status: Former Tobacco user Allergies statins Adverse Reaction (Intermediate, Uncoded 05/13/24 15:49) Muscle aches Do you need a note to return to daycare/school/sports/work: No HPI HPI Comments History of Present Illness Details 58 y/o male patient who presents to the walk in clinic with c/o Upper back/thoracic region pain since Sunday. Denies injury or trauma to the back. Denies numbness or tingling. 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 Current occupational exposures/hazards: No Cognitive needs: No Hearing needs: No Vision needs: No Review of Systems Const All systems reviewed & are unremarkable except as noted in HPI and below Physical Exam Vital Signs: Last Vital Signs Temp 98.1 F 06/12/24 12:25 Pulse 67 06/12/24 12:25 BP 120/80 06/12/24 12:25 Pulse Ox 95 06/12/24 12:25 Oxygen Delivery Method Room Air 06/12/24 12:25 BMI result Body Mass Index 28.4 Const General: cooperative and no acute distress Nutritional Appearance: well nourished Orientation/consciousness: patient oriented x3 Chest Chest palpation & inspection: normal inspection of the chest and no crepitus Resp Effort & Inspection: normal respiratory effort and able to speak in complete sentences Auscultation: clear to auscultation bilaterally Cardio Heart sounds: S1 normal heart sound present and S2 normal heart sound present General: Yes no CVA tenderness Back/Spine/Pelvis Back: no CVA tenderness and back tenderness Thoracic/Lumbar Spine: thoraco-lumbar ROM normal, pain with thoraco-lumbar ROM and thoracic spinal tenderness Skin General skin exam: no rashes or lesions noted Neuro General: patient oriented x3, gait normal and moves all extremities Psych Speech and movement: Normal speech and movement present Assessment & Plan Assessment & Plan (1) Back pain: Code(s): M54.9 - Dorsalgia, unspecified Qualifiers: Back pain laterality: bilateral Back pain location: thoracic back pain Chronicity: acute Qualified Code(s): M54.6 - Pain in thoracic spine Plan: NSAIDs for pain relief Lido patches Muscle relaxants Medications: New lidocaine 5% leave on most painful area for up to 12 hrs 1 patch topical DAILY 30 ea 0RF M54.6 - Pain in thoracic spine cyclobenzaprine 5 mg PO BEDTIME 14 tabs 0RF M54.6 - Pain in thoracic spine Changed From ibuprofen 800 mg PO TID 30 days PRN 90 tabs 1RF pain M54.6 - Pain in thoracic spine To ibuprofen 800 mg PO Q6-8H PRN 60 tabs 1RF pain M54.6 - Pain in thoracic spine Coding Level of Care Code Est Pt Level 3 (31008) Diagnoses Acute bilateral thoracic back pain M54.6 Back pain laterality: bilateral Back pain location: thoracic back pain Chronicity: acute Time Spent (min) 15
[2024-06-12 12:25] VITALS: BP 120/80; PULSE 67; TEMP 36.7; O2SAT 95; BMI 28.4
== END 2024-06-12 13:14 | disposition home or self-care (01) ==
PROVIDERS: PCP Nurse Practitioner Family; Visit Provider Nurse Practitioner Family
DX: M54.6 Pain in thoracic spine (principal)

== ENCOUNTER → 2024-06-12 11:48 | Outpatient (BNVA) | payer OTHER, SELFPAY | PROVIDERS: PCP Nurse Practitioner Family; Visit Provider Nurse Practitioner Family | DX: M54.6 Pain in thoracic spine (principal) | CPT/HCPCS: 99212 ==

== ENCOUNTER 2024-06-27 06:23 | Outpatient (REF) | payer OTHER, SELFPAY ==
--- OUTSIDE RECORDS SUMMARY | 2024-06-27 06:25 | XMS_ITS | Encounter Summary ---
Author Organization [employer] Address [address] [facility] 7[address] [place] [address] Care Team Providers Care Head Neck Surgeon Name Role Phone Pcp, Carolyn Unassigned Primary Care Provider U navailable Reason for Visit * Reason Comments Dental Exam Encounter Details Date Type Department Care Team (Late st Contact Info) Description 06/09/2024 4:00 PM EST Office Visit [facility] Dental [address] [place] [address] Becky Tapia LLD [address] [place] [address] Social History Tobacco Use Types Packs/Day Years Used Date Smoking Tobacco: Never Passive Smoke Exposure: Never Smokeless Tobacco: Never Alcohol Use Standard Drinks/Week Comments Yes 3 (1 standard drink = 0.6 oz pur e alcohol) social Sex and Gender Information Value Date Recorded Sex Assigned at Male 08/29/2022 6:59 AM EDT Legal Sex Male 5:36 PM EDT Gender Identity Male 08/29/2022 6:59 AM EDT Sexual Orientation Don't know 08/29/2022 6: 59 AM EDT documented as of this encounter Last Filed Vital Signs Vital Sign Reading Time Taken Comments Blood Pressure 140/92 06/09/2024 3:59 PM EST Pulse 71 06/09/2024 3:59 PM EST Temperature - - Respiratory Rate - - Oxygen Saturation - - Inhaled Oxygen Concentration - - Weight - - Height - - Body Mass Index - - documented in this encounter Progress Notes * GERHARD Calderón - 06/09/2024 4:00 PM EST 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 Reviewed medical history and history of present illness: Patient's medical history doesn't present contra-indications to care, and MH is non-contributory to present dental illness Medication Taken for Present Illness: none Medical Clearance: none requested Reviewed dental treatment plan Reviewed small dislodgement of existing amalgam pentecostalism clinically, no existing decay, explained to pt tooth is worn and weakened due to long standing large pentecostalism, preferable not to remove remaining filling Anesthesia none needed Isolation was achieved with cotton rolls and 2x2 gauze Etched with 37% phosphoric acid etching gel Bonded with GC Major TPH Flowable composite Adjusted occlusion and margins All surfaces polished Patient pleased with treatment. Patient instructed to return for occlusal adjustments if pentecostalism feels high. All questions were answered. Dismiss Note Fiberglass Laminator: Dental Care and patient education provided and emphasized Referral No Oral cancer screening: No significant oral pathology noted. Patient left understanding directions for care Phase I Completed? 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 Reviewed medical history and history of present illness: Patient's medical history doesn't present contra-indications to care, and MH is non-contributory to present dental illness Medication Taken for Present Illness: none Medical Clearance: none requested Reviewed dental treatment plan Reviewed small dislodgement of existing amalgam pentecostalism clinically, no existing decay, explained to pt tooth is worn and weakened due to long standing large pentecostalism, preferable not to remove remaining filling Anesthesia none needed Isolation was achieved with cotton rolls and 2x2 gauze Etched with 37% phosphoric acid etching gel Bonded with GC Major TPH Flowable composite Adjusted occlusion and margins All surfaces polished Patient pleased with treatment. Patient instructed to return for occlusal adjustments if pentecostalism feels high. All questions were answered. Dismiss Note Fiberglass Laminator: Dental Care and patient education provided and emphasized Referral No Oral cancer screening: No significant oral pathology noted. Patient left understanding directions for care Phase I Completed? No Came to visit with : N/A Next Visit - Hygiene [place] documented in this encounter Plan of Treatment Upcoming Encounters Date Type Department Care Team (Late st Contact Info) Description 10/14/2024 4:00 PM EDT Office Visit Carolyn [facility] Dental [address] [place] [address] Nancy Rico LLD [address] [place] [id number] documented as of this encounter Procedures Procedure Name Priority Date/Time Associated Diagnosis Comments 30 CAITLYN RESTORATIVE - RESIN-BASED COMPOSITE RESTORATIONS - DIRECT - RESIN-BASED COMPOSITE - TWO SURFACES, POSTERIOR Routine 06/09/2024 4:00 PM EST documented in this encounter Visit Diagnoses Not on filedocumented in this encounter Care Teams Head Neck Surgeon Relationship Specialty Start Date End Date PcpCarolyn Unassigned PCP - General Family Medicine 09/25/22 documented as of this encounter
--- OUTSIDE RECORDS SUMMARY | 2024-06-27 06:25 | XMS_ITS | Encounter Summary ---
Author Organization [employer] Address [address] [facility] 7t [place] [address] Care Team Providers Care Corporate Director Name Role Phone PcpCarolyn Unassigned Primary Care Provider U navailable Encounter Details Date Type Department Care Team (Latest Contact Info) Description 12/06/2021 [facility] Dental, Provider, DDS Social History Tobacco Use Types Packs/Day Years Used Date Smoking Tobacco: Never Assessed Sex and Gender Information Value Date Recorded Sex Assigned at Male 08/29/2022 6:59 AM EDT Legal Sex Male 5:36 PM EDT Gender Identity Male 08/29/2022 6:59 AM EDT Sexual Orientation Don't know 08/29/2022 6: 59 AM EDT documented as of this encounter Plan of Treatment Upcoming Encounters Date Type Department Care Team (Late st Contact Info) Description 10/14/2024 4:00 PM EDT Office Visit Carolyn [facility] Dental [address] [place] [address] Nancy Rico LLD [address] [place] [address] documented as of this encounter Visit Diagnoses Not on filedocumented in this encounter Care Teams Corporate Director Relationship Specialty Start Date End Date Carolyn Crouchsswhit PCP - General Family Medicine 09/25/22 documented as of this encounter
--- OUTSIDE RECORDS SUMMARY | 2024-06-27 06:25 | XMS_ITS | Encounter Summary ---
Author Organization [employer] Address [address] [facility] [address] [place] [address] Care Team Providers Care Lopper Name Role Phone PcpCarolyn Unassigned Primary Care Provider U navailable Encounter Details Date Type Department Care Team (Latest Contact Info) Description 05/11/2021 Abstract [facility], Provider, DDS Social [...] 10/14/2024 4:00 PM EDT Office Visit Carolyn [facility] Dental [address] [place] [address] Nancy Rico LLD [address] [place] [address] documented as of this encounter Visit Diagnoses Not on filedocumented in this encounter Care Teams Lopper Relationship Specialty Start Date End Date Carolyn Crouchsswhit PCP - General Family Medicine 09/25/22 documented as of this encounter
--- OUTSIDE RECORDS SUMMARY | 2024-06-27 06:25 | XMS_ITS | Clinical Summary ---
Author Organization [facility] Address [address] [facility] 7 [place] [address] Care Team Providers Care Curb Setter Helper Name Role Phone Pcp, Carolyn Unassigned Primary Care Provider U navailable Allergies Active Allergy Reactions Criticality Noted Date Comments Atorvastatin 08/30/2022 Other reaction(s): MUSCLE ACHES Medications colesevelam (Welchol) 625 MG tablet 07/25/2022 Active lisinopril 40 MG tablet 04/23/2022 Active ibuprofen 800 MG tablet 02/14/2022 Active ezetimibe (Zetia) 10 MG tablet 07/25/2022 Active Active Problems Problem Noted Date Diagnosed Date Hypertension 08/30/2022 Low back pain 08/30/2022 Rhinitis 08/30/2022 Hypercholesterolemia 08/30/2022 Gastroesophageal reflux disease with hiatal jose ia 08/30/2022 Encounters Date Type Department Care Team Description 06/09/2024 4:00 PM EST Office Visit [facility] Dental [address] [place] [address] Becky Tapia LLD 05/07/2024 4:00 PM EST Office Visit [facility] Dental [address] [place] [address] Nancy Rico LLD Encounter for dental examination (Primary Dx); Closed fracture of tooth, initial encounter 04/15/2024 2:00 PM EST Office Visit [facility] Dental [address] [place] [address] Nancy Rico LLD Stage 2 grade B generalized periodontitis per AAP/EFP 2017 classification (Primary Dx); Encounter for dental examination from Last 3 Months Immunizations Name Administration Dates Next Due Td (adult), unspecified 05/28/2002 Tdap 09/25/2008 Social History Tobacco Use Types Packs/Day Years Used Date Smoking Tobacco: Never Passive Smoke Exposure: Never Smokeless Tobacco: Never Tobacco Cessation:Counseling Given: Not Answered Alcohol Use Standard Drinks/Week Comments Yes 3 (1 standard drink = 0.6 oz pur e alcohol) social Sex and Gender Information Value Date Recorded Sex Assigned at Male 08/29/2022 6:59 AM EDT Legal Sex Male 5:36 PM EDT Gender Identity Male 08/29/2022 6:59 AM EDT Sexual Orientation Don't know 08/29/2022 6: 59 AM EDT Last Filed Vital Signs Vital Sign Reading Time Taken Comments Blood Pressure 140/92 06/09/2024 3:59 PM EST Pulse 71 06/09/2024 3:59 PM EST Temperature - - Respiratory Rate - - Oxygen Saturation - - Inhaled Oxygen Concentration - - Weight 81.6 kg (180 lb) 08/30/2022 2:03 PM EDT Height - - Body Mass Index - - Plan of Treatment Upcoming Encounters Date Type Department Care Team (Late st Contact Info) Description 10/14/2024 4:00 PM EDT Office Visit Carolyn [facility] Dental [address] [place] [address] Nancy Rico LLD [address] [place] [address] Health Maintenance Due Date Last Done Comments CT Colonography 1967 Colonoscopy 1967 Colorectal Cancer Screening 1967 Depression Screening 1967 FIT DNA/Cologuard 1967 FIT 1967 FOBT 1967 HIV Screening 1967 Lipid Panel 1967 SDOH Screening 1967 Sigmoidoscopy 1967 Alcohol/Substance Use Screening 1979 Hepatitis C Screening 11/29/1985 Hepatitis B Vaccines (1 of 3 - 19+ 3-dose series) 11/29/1986 Pneumococcal Vaccine: 50+ Years (1 of 1 - PCV) 11/29/2017 Zoster Vaccines (1 of 2) 11/29/2017 COVID-19 Vaccine (1 - 2023- season) 2024 Influenza Vaccine (#1) 2024 Dental X-Ray: Bitewings 09/27/2024 09/27/19 24, 08/30/2022, 05/11/2021, Additional history exists Dental Oral Exam 10/14/2024 04/15/2024, 06/2023, 03/21/2023, Additional history exists Dental Prophylaxis 10/14/2024 04/15/2024, 0 09/27/2023, 03/21/2023, Additional history exists Tobacco Screening 04/15/2025 04/15/2024 Dental X-Ray: Full Mouth 08/31/2025 08/30/2022, 04/27 DTaP/Tdap/Td Vaccines (3 - Td or Tdap) 10/16/2032 10/16/2022, 09/25/2008, 05/28/2002 RSV Patients and Patients Aged 60 years or older (1 - 1-dose 75+ series) 11/29/2042 HIB Vaccines Aged Out No longer eligi ble based on patient's age to complete this topic HPV Vaccines Aged Out No longer eligi ble based on patient's age to complete this topic Hepatitis A Vaccines Aged Out No long er eligible based on patient's age to complete this topic IPV Vaccines Aged Out No longer eligi ble based on patient's age to complete this topic Meningococcal Vaccine Aged Out No joão manfred eligible based on patient's age to complete this topic Pneumococcal Vaccine: Pediatrics (0 to 5 Years) and At-Risk Patients (6 to 49) Years) Aged Out No longer eligible based on patient's age to complete this topic RSV under 20 months Aged Out No longe r eligible based on patient's age to complete this topic Rotavirus Vaccines Aged Out No longer eligible based on patient's age to complete this topic Procedures Procedure Name Priority Date/Time Associated Diagnosis Comments 30 CAITLYN RESTORATIVE - RESIN-BASED COMPOSITE RESTORATIONS - DIRECT - RESIN-BASED COMPOSITE - TWO SURFACES, POSTERIOR Routine 06/09/2024 4:00 PM EST ADJUNCTIVE GENERAL SERVICES - PROFESSIONAL VISITS - CASE PRESENTATION, SUBSEQUENT TO DETAILED AND EXTENSIVE TREATMENT PLANNING Routine 05/07/2024 4:00 PM EST 10 MIDFL RESIN-BASED COMPOSITE - 4 OR MORE SURFACES (ANTERIOR) Routine 05/07/2024 4:00 PM EST INTRAORAL - PERIAPICAL FIRST RADIOGRAPHIC IMAGE Routine 04/15/2024 2:00 PM EST ORAL HYGIENE INSTRUCTIONS Routine 2023 2:00 PM EST Full PROPHYLAXIS - ADULT Routine 024 2:00 PM EST PERIODIC ORAL EVALUATION - ESTABLISHED PATIENT Routine 04/15/2024 2:00 PM EST BITEWINGS - 4 RADIOGRAPHIC IMAGES Routine 09/27/2023 3:00 PM EDT DIAGNOSTIC - DIAGNOSTIC IMAGING - INTRAORAL - COMPREHENSIVE SERIES OF RADIOGRAPHIC IMAGES Routine 08/30/2022 2:00 PM EDT Encounter for dental examination from Last 3 Months or Most Recently Relevant to Health Maintenance Insurance DENTAL - [place] ([place] [id number] Care Teams Curb Setter Helper Relationship Specialty Start Date End Date Carolyn Crouch Unassigned PCP - General Family Medicine 09/25/22
[2024-06-27 10:54] LABS: Appearance Urine Clear; Color Urine Yellow; Glucose Urine UA Negative (Negative); Leukocyte Esterase Urine Negative (Negative); Nitrite Urine Negative (Negative); PH 5.5 (5.0-9.0); Specific Gravity - Urine 1.015 (1.005-1.025); Urine Blood Negative (Negative); Urine Ketones Negative (Negative); Urine Protein Negative (Neg-Trace)
[2024-06-27 10:55] LABS: MANUAL DIFF FLAG NO
[2024-06-27 11:01] LABS: Basophils Percent Auto 0.6 % (0-2); Eosinophils Absolute Auto 0.1 X10*3/uL (0.0-0.4); Hematocrit 46.1 % (42.0-52.0); Hemoglobin 15.7 g/dl (14.0-18.0); Imm Gran Abs Auto 0.01 X10*3/uL (0.00-0.03); Imm Gran Pct Auto 0.2 % (0.0-0.4); Lymphocytes Absolute Auto 2.3 X10*3/uL (1.2-4.9); Lymphocytes Percent Auto 35.5 % (20-40); Mean Corpuscular HGB Conc 34.1 g/dl (31.0-36.0); Mean Corpuscular Hemoglobin 30.1 pg (27.0-33.0); Mean Corpuscular Volume 88.3 fL (80.0-98.0); Mean Platelet Volume 9.2 fL (9.4-12.4); Monocytes Absolute Auto 0.6 X10*3/uL (0.1-1.2); Neutrophils Absolute Auto 3.5 x10*3/uL (2.0-8.3); Neutrophils Percent Auto 52.7 % (45-73); Platelet Count 243 X10*3/uL (160-400); Red Blood Count 5.22 X10*6/uL (4.60-5.80); Red Cell Distribution Width 12.3 % (11.0-16.0); White Blood Count 6.6 X10*3/uL (4.8-10.8)
[2024-06-27 11:27] LABS: Alanine Aminotransferase 37 U/L (0-40); Albumin Level 4.2 g/dL (3.5-5.0); Alkaline Phosphatase 53 U/L (39-117); Anion Gap 10 (12-20); Aspartate Amino Transferase 34 U/L (5-37); Bilirubin Total 0.6 mg/dL (0.0-1.0); Blood Urea Nitrogen 14 mg/dL (9-16); Calcium 9.9 mg/dL (8.4-10.2); Carbon Dioxide 27 mmol/L (22-29); Chloride 107 mmol/L (96-108); Cholesterol 248 mg/dL (<200); Estimated Glomerular Filt Rate > 60; Glucose Fasting 91 mg/dL (60-99); HDL Cholesterol 48 mg/dL (>40); LDL Cholesterol Calculated 170 mg/dL (<100); Potassium 4.1 mmol/L (3.3-5.1); Sodium 140 mmol/L (135-145); Total Protein 7.6 g/dL (6.5-8.0); Triglycerides 152 mg/dL (<150)
== END 2024-06-27 06:24 | disposition home or self-care (01) ==
LOC: HO.HMGCLDS 06:23
PROVIDERS: PCP Nurse Practitioner Family; Visit Provider Nurse Practitioner Family
DX: I10 Essential (primary) hypertension (principal)
CPT/HCPCS: 36415; 80053; 80061; 81003; 84443; 85025

== ENCOUNTER 2024-06-30 13:44 | Outpatient (AMB) | payer OTHER, SELFPAY ==
[2024-06-30 13:48] VITALS: BP 120/80; PULSE 68; TEMP 36.6; O2SAT 97; BMI 28.4
--- NOTE | 2024-06-30 13:48 | A.OFFPC_ITS ---
Vital Signs 06/30/24 13:48 Height 5 ft 8 in Weight 187 lb BMI 28.4 BP 120/80 Blood Pressure Location Rt brachial Position Sitting Pulse 68 Pulse Source Pulse Oximeter Temp 97.8 F Temp Source Oral Pulse Oximetry (%) 97 Oxygen Delivery Method Room Air Intake Visit Reasons: Annual PE Intake Note: pt is here for annual exam Machine Made Shoe Unit Worker Required: No Accompanied by: Self / Same As Patient Allergies statins Adverse Reaction (Intermediate, Uncoded 05/13/24 15:49) Muscle aches Medication List - Last Reconciled 06/30/24 by Baljeet Castaneda, [facility]- cholecalciferol (vitamin D3) 50 mcg PO DAILY evolocumab (Repatha SureClick) 140 mg subcut Q2W ibuprofen 800 mg PO Q6-8H PRN lisinopril 40 mg PO DAILY Tobacco use date assessed: 06/30/24 Dental Screening Dental Screen Date: 06/30/24 Did you have a dental visit in the last 12 months?: Yes Did you have a dental problem in the last 6 months where you did not have access to dental care?: No Was dental information given to patient?: Patient has dentist HPI Annual PE HPI Details History of Present Illness The patient is a 58-year-old male presenting with dyslipidemia. He has had ongoing issues with dyslipidemia and has tried multiple statins, all of which caused adverse effects. Zetia was also trialed but was not tolerated. His lab results have consistently shown abnormal lipid levels. Currently, efforts are being made to manage his condition with planned treatment adjustments. He denies experiencing any associated symptoms such as fever, chills, chest pain, or shortness of breath. Additionally, he reports no gastrointestinal symptoms like constipation or diarrhea. The patient is scheduled for a colonoscopy as part of his routine screening and is also being followed by urology for PSA and microscopic hematuria concerns. Health Maintenance - Planning for colon cancer screening in the near future - Following up with urology for PSA and microscopic hematuria monitoring Social History Review of Systems - General: Denies fever, chills - Cardiovascular: Denies chest pain - Respiratory: Denies shortness of breat h - Neurological: Denies headaches, numbne ss, tingling - Gastrointestinal: Denies blood in the stool, constipation, diarrhea - Psychological: Denies anxiety, depress ion, suicidal thoughts, homicidal thoughts Physical Exam General: Cooperative, healthy appearing, comfortable, no acute distress and well developed Orientation: Patient oriented x3 Limitations: No limitations Head: Normal to inspection Ears: Hearing grossly normal bilaterally Nose: Normal external nose present Face and sinus: Normal facial exam Eyes: Appearance normal, both eyes and all related structures Neck: Normal visual inspection and Yes full ROM Respiratory: Normal respiratory effort and able to speak in complete sentences. Clear to auscultation bilaterally Cardiovascular: Regular rate and rhythm. Normal S1 and S2 GI: Normal to inspection. Soft to palpation and nontender Skin: No rashes or lesions noted Neuro: Patient oriented x3 Extremities: Normal to inspection Results - Labs: Dyslipidemia evident on lipid pa kaylee - Tests: No specific results provided in the conversation Plan - Initiate treatment with Repatha inject ions bi-weekly - Plan to repeat cholesterol and liver f unction tests in 2-3 months - Ensure follow-up for urology-related i ssues concerning PSA and microscopic hematuria - Proceed with planned colon cancer scre ening Discussion Notes I discussed the patient's ongoing dyslipidemia management, emphasizing the challenges with previous statin therapies and Zetia due to side effects and tolerability issues. We have decided to commence treatment with Repatha injections every two weeks and will reassess his lipid and liver function tests in the next 2-3 months. I also confirmed that the patient is scheduled for a colonoscopy for routine screening purposes and is under urology care for PSA and microscopic hematuria monitoring. We thoroughly reviewed the indications, expected outcomes, and potential side effects of Repatha, and the patient consented to this treatment plan. Patient Instructions - Begin Repatha injections every two wee ks - Monitor for any side effects or unusua l symptoms and report them promptly - Plan for follow-up blood tests in 2-3 months - Continue with the scheduled colonoscop y - Maintain regular follow-up with urolog y for prostate health monitoring [facility] Medical History (Updated 06/30/24 @ 14:10 by Baljeet Castaneda [facility]) Physical exam BPH (benign prostatic hyperplasia) Renal cyst, right Screening for colon cancer Chest discomfort Finger joint swelling Sliver Lipid disorder Screening PSA (prostate specific antigen) Epigastric pain Abdominal bloating Dyspepsia Chest pain Viral syndrome Chronic pain High cholesterol Surgical History H/O colonoscopy Social History Housing: House Patient Tobacco Use Status: Former Tobacco user Years Smoked: 30 years ago e-Cigarette/Vaping Use: Never Used Second Hand Smoke Exposure: No service: No Current occupational status: employed 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 Current occupational exposures/hazards: No Cognitive needs: No Hearing needs: No Vision needs: No Questionnaire PHQ-9 Over the last 2 weeks, how often have you been bothered by any of the following problems? 1. Little interest or pleasure in doing things: not at all 2. Feeling down, depressed, or hopeless: not at all 3. Trouble falling or staying asleep, or sleeping too much: not at all 4. Feeling tired or having little energy: not at all 5. Poor appetite or overeating: not at all 6. Feeling bad about yourself - or that you are a failure or have let yourself or your family down: not at all 7. Trouble concentrating on things, such as reading the newspaper or watching television: not at all 8. Moving or speaking so slowly that other people could have noticed. Or the opposite - being so fidgety or restless that you have been moving around a lot more than usual: not at all 9. Thoughts that you would be better off or of hurting yourself in some way : not at all Total score: 0 Depression Screening Interpretation: Negative Depression Screening Done: Yes 15822 - PHQ-9 Billing: Yes Source: Developed by Drs. Gigi Chapman, Danii Erazo, Regis Urbina and colleagues, with an educational rosa from [employer]. Thrive Questionnaire Date Thrive assessed: 06/30/24 I am a: Patient What is your living situation today?: I choose not to answer this question Within the past 12 months, did the food you bought not last and you didn't have the money to get more?: I choose not to answer this question Within the past 12 months, did you worry whether your food would run out before you got money to buy more?: I choose not to answer this question Do you have trouble paying for medicines?: No Do you have trouble getting transportation to medical appointments?: I choose not to answer this question Do you have trouble paying your heating and electricity bill?: I choose not to answer this question Do you have trouble taking care of your child, family member or friend?: I choose not to answer this question Do you have trouble with day-to-day activities such as bathing, preparing meals, shopping, managing finances, etc.?: I choose not to answer this question Are you currently unemployed and looking for a job?: I choose not to answer this question Are you interested in more education?: I choose not to answer this question Please select the resources that you would like help with: None Currently or been in a relationship where the following occur: I choose not to answer THRIVE Score: 0 AUDIT C Alcohol Use Questionnaire (AUDIT-C) 1. How often do you have a drink containing alcohol?: 2-4 times a month 2. How many drinks containing alcohol do you have on a typical day when you are drinking?: 3 or 4 3. How often do you have six or more drinks on one occasion?: Less than monthly Total Score: 4 Score Reviewed/Action Taken: Yes EFREN-7 AMB Questionnaire EFREN-7 Date EFREN - 7 assessed: 06/30/24 Feeling nervous, anxious, or on edge: 0 = Not at all Not being able to stop or control worryin = Not at all Worrying too much about different things: 0 = Not at all Trouble relaxin = Not at all Being so restless that it is hard to sit still: 0 = Not at all Becoming easily annoyed or irritable: 0 = Not at all Feeling afraid as if something awful might happen: 0 = Not at all Total EFREN-7 score (0-4 normal; 5-9 mild; 10-14 moderate; 15-21 severe): 0 Source: Developed by Drs. Gigi Chapman, Danii rEazo, Regis Urbina and colleagues, with an educational rosa from [employer]. EFREN-7 Assessment Billing EFREN-7 Assessment Tool: EFREN-7 Assessment 91326 Physical exam (Primary Care) Vital Signs: Last Vital Signs Temp 97.8 F 06/30/24 13:48 Pulse 68 06/30/24 13:48 BP 120/80 06/30/24 13:48 Pulse Ox 97 06/30/24 13:48 Oxygen Delivery Method Room Air 06/30/24 13:48 BMI result Body Mass Index 28.4 Tobacco/Smoking Status: Tobacco use Status Tobacco use date assessed 06/30/24 06/30/24 13:49 Patient Tobacco Use Status Former Tobacco user 06/30/24 13:49 e-Cigarette/Vaping Use Never Used 06/30/24 13:49 PHQ-9: PHQ-9 Score PHQ-9: Total score 0 06/30/24 13:57 Depression Screening Interpretation: Negative Thrive Assessment: Date of Thrive Assessment Date Thrive assessed 06/30/24 06/30/24 13:49 Currently or been in a relationship where the following occur: I choose not to answer Coding Level of Care Code Est Pt Prev Care 40-64y(57613) Diagnoses Physical exam Z00.00 Dyslipidemia E78.5 Additional Codes EFREN-7 Assessment Billing - EFREN-7 Assessment Tool: EFREN-7 Assessment 02600 ([id number]) PHQ-9 - 74127 - PHQ-9 Billing: Yes ([id number]) Assessment & Plan Assessment & Plan (1) Physical exam: Code(s): Z00.00 - Encounter for general adult medical examination without abnormal findings Category: Medical (2) Dyslipidemia: Code(s): E78.5 - Hyperlipidemia, unspecified Category: Medical Plan . Orders: Orders Lipid Panel 3 Months E78.5 - Hyperlipidemia, unspecified, Z00.00 - Encounter for general adult medical examination without abnormal findings Comprehensive [place]. Panel Fast 3 Months E78.5 - Hyperlipidemia, unspecified, Z00.00 - Encounter for general adult medical examination without abnormal findings Medications: New evolocumab (Repatha SureClick) 140 mg subcut Q2W 2 mL 2RF Refilled lisinopril 40 mg PO DAILY 90 tabs 3RF
--- OUTSIDE RECORDS SUMMARY | 2024-06-30 15:13 | XMS_ITS | Encounter Summary ---
Author Organization [employer] Address [address] [facility] 7t [place] [address] Care Team Providers Care Evp Business Development Name Role Phone PcpCarolyn Unassigned Primary Care [...] 10/14/2024 4:00 PM EDT Office Visit Carolyn [facility] Dental [address] [place] [address] Nancy Rico LLD [address] [place] [address] documented as of this encounter Visit Diagnoses Not on filedocumented in this encounter Care Teams Evp Business Development Relationship Specialty Start Date End Date Carolyn Crouchsswhit PCP - General Family Medicine 09/25/22 documented as of this encounter
--- OUTSIDE RECORDS SUMMARY | 2024-06-30 15:13 | XMS_ITS | Encounter Summary ---
Author Organization [employer] Address [address] [facility] 7t [place] [address] Care Team Providers Care Hay Farmer Name Role Phone Pcp, Carolyn Unassigned Primary Care Provider U navailable Reason for Visit * Reason Comments Dental Exam Encounter Details Date Type Department Care Team (Late st Contact Info) Description 06/09/2024 4:00 PM EST Office Visit [place] [facility] [address] [place] [address] Becky Tapia LLD [address] [place] [address] Social History Tobacco Use Types Packs/Day Years [...] Calderón - 06/09/2024 4:00 PM EST Composite pentecostal of tooth # 30 Patient presented for dental pentecostal. Reviewed medical history and history of present illness: Patient's medical history doesn't present contra-indications to care, and MH is non-contributory to present dental illness Medication Taken for Present Illness: none Medical Clearance: none requested Reviewed dental treatment plan Reviewed small dislodgement of existing amalgam pentecostal clinically, no existing decay, explained to pt tooth is worn and weakened due to long standing large pentecostal, preferable not to remove remaining filling Anesthesia none needed Isolation was achieved with cotton rolls and 2x2 gauze Etched with 37% phosphoric acid etching gel Bonded with GC Major TPH Flowable composite Adjusted occlusion and margins All surfaces polished Patient pleased with treatment. Patient instructed to return for occlusal adjustments if pentecostal feels high. All questions were answered. Dismiss Note Surgical Corsetier: Dental Care and patient education provided and emphasized Referral No Oral cancer screening: No significant oral pathology noted. Patient left understanding directions for care Phase I Completed? No Came to visit with : N/A Next Visit - Hygiene [place] documented in this encounter Miscellaneous Notes * Dental Procedure Details - GERHARD Calderón - 06/09/2024 4:00 PM EST Composite pentecostal of tooth # 30 Patient presented for dental pentecostal. Reviewed medical history and history of present illness: Patient's medical history doesn't present contra-indications to care, and MH is non-contributory to present dental illness Medication Taken for Present Illness: none Medical Clearance: none requested Reviewed dental treatment plan Reviewed small dislodgement of existing amalgam pentecostal clinically, no existing decay, explained to pt tooth is worn and weakened due to long standing large pentecostal, preferable not to remove remaining filling Anesthesia none needed Isolation was achieved with cotton rolls and 2x2 gauze Etched with 37% phosphoric acid etching gel Bonded with GC Major TPH Flowable composite Adjusted occlusion and margins All surfaces polished Patient pleased with treatment. Patient instructed to return for occlusal adjustments if pentecostal feels high. All questions were answered. Dismiss Note Surgical Corsetier: Dental Care and patient education provided and emphasized Referral No Oral cancer screening: No significant oral pathology noted. Patient left understanding directions for care Phase I Completed? No Came to visit with : N/A Next Visit - Hygiene [place] documented in this encounter Plan of Treatment Upcoming Encounters Date Type Department Care Team (Late st Contact Info) Description 10/14/2024 4:00 PM EDT Office Visit [facility] [address] [place] [address] Nancy Rico LLD [address] [place] [phone] documented as of this encounter Procedures Procedure Name Priority Date/Time Associated Diagnosis Comments 30 CAITLYN RESTORATIVE - RESIN-BASED COMPOSITE RESTORATIONS - DIRECT - RESIN-BASED COMPOSITE - TWO SURFACES, POSTERIOR Routine 06/09/2024 4:00 PM EST documented in this encounter Visit Diagnoses Not on filedocumented in this encounter Care Teams Hay Farmer Relationship Specialty Start Date End Date PcpCarolyn Unassigned PCP - General Family Medicine 09/25/22 documented as of this encounter
--- OUTSIDE RECORDS SUMMARY | 2024-06-30 15:13 | XMS_ITS | Clinical Summary ---
Author Organization [facility] [facility] Address [address] [facility] 7 [place] [address] Care Team Providers Care Veneer Drier Tailer Name Role Phone Pcp, Carolyn Unassigned Primary [...] Description 06/09/2024 4:00 PM EST Office Visit [facility] [address] [place] [address] Becky Tapia LLD 05/07/2024 4:00 PM EST Office Visit [facility] [address] [place] [address] Nancy Rico LLD Encounter for dental examination (Primary Dx); Closed fracture of tooth, initial encounter 04/15/2024 2:00 PM EST Office Visit [facility] [address] [place] [address] Nancy Rico LLD Stage 2 grade B [...] 10/14/2024 4:00 PM EDT Office Visit [facility] [address] [place] [address] Nancy Rico LLD [address] [place] [address] Health Maintenance Due Date Last Done Comments [...] this topic Meningococcal Vaccine Aged Out No ojão manfred eligible based on patient's age to [...] Maintenance Insurance DENTAL - HSN [place]ULL ([place] [id number] Care Teams Veneer Drier Tailer Relationship Specialty Start Date End Date Carolyn Crouch Unassigned PCP - General Family Medicine 09/25/22
--- OUTSIDE RECORDS SUMMARY | 2024-06-30 15:13 | XMS_ITS | Encounter Summary ---
Author Organization [employer] Address [address] [facility] 7t [place] [address] Care Team Providers Care Manager Knowledge Name Role Phone PcpCarolyn Unassigned Primary Care [...] 10/14/2024 4:00 PM EDT Office Visit [facility] [address] [place] [address] Nancy Rico LLD [address] [place] [address] documented as of this encounter Visit Diagnoses Not on filedocumented in this encounter Care Teams Manager Knowledge Relationship Specialty Start Date End Date Carolyn Crouchsswhit PCP - General Family Medicine 09/25/22 documented as of this encounter
== END 2024-06-30 14:56 | disposition home or self-care (01) ==
PROVIDERS: PCP Nurse Practitioner Family; Visit Provider Nurse Practitioner Family
DX: Z00.00 Encounter for general adult medical examination without abnormal findings (principal); E78.5 Hyperlipidemia, unspecified

== ENCOUNTER → 2024-06-30 13:44 | Outpatient (BNVA) | payer OTHER, SELFPAY | PROVIDERS: PCP Nurse Practitioner Family; Visit Provider Nurse Practitioner Family | DX: Z00.00 Encounter for general adult medical examination without abnormal findings (principal); E78.5 Hyperlipidemia, unspecified | CPT/HCPCS: 96127; 99396 ==

== ENCOUNTER 2024-07-07 09:11 | Day surgery (SDC) | payer OTHER, SELFPAY ==
[2024-07-03 14:43] VITALS: BMI 27.2
--- NOTE | 2024-07-04 11:58 | HO.ANESPROP2 ---
Documented by User: Hawa Edwards NP 07/04/24 11:59 HPI - Anesthesia Eval Consult details Narrative: 58yo M for Upper Endoscopy and Colonoscopy [facility] Active Problems Active Problems: All Active Problems Physical exam (Acute) Hiatal hernia (Acute) Discomfort of neck (Acute) Difficulty swallowing (Acute) Nicotine dependence with current use (Acute) Urinary frequency (Acute) Dyslipidemia (Acute) New onset headache (Acute) Joint pain in fingers of both hands (Acute) Elevated TSH (Acute) Cervical neck pain with evidence of disc disease (Acute) Microscopic hematuria (Acute) Left shoulder pain (Acute) HTN (hypertension), benign (Acute) Allergic rhinitis (Acute) Tubular adenoma of colon (Acute) Past Medical History Medical History (Updated 06/30/24 @ 14:10 by Baljeet Castaneda [facility]) Physical exam BPH (benign prostatic hyperplasia) Renal cyst, right Screening for colon cancer Chest discomfort Finger joint swelling Sliver Lipid disorder Screening PSA (prostate specific antigen) Epigastric pain Abdominal bloating Dyspepsia Chest pain Viral syndrome Chronic pain High cholesterol Surgical History Surgical History H/O colonoscopy Social History Social History Housing: House Patient Tobacco Use Status: Former Tobacco user Years Smoked: 30 years ago e-Cigarette/Vaping Use: Never Used Second Hand Smoke Exposure: No Use of substances other than those prescribed or required for medical reasons: No Are you DNR?: No Advance Directives: No Advance Directives Information Provided: Yes Recently lost weight without trying: No service: No Current occupational status: employed 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 Current occupational exposures/hazards: No Cognitive needs: No Hearing needs: No Vision needs: No Meds Allergies Allergy/AdvReac Type Severity Reaction Status Date / Time statins AdvReac Intermediate Muscle Uncoded 05/13/24 15:49 aches Home Medications ?Medication ?Instructions ?Recorded ?Confirmed ?Last Taken ?Type cholecalciferol (vitamin D3) 50 50 mcg PO DAILY 02/14/22 06/30/24 Unknown History mcg (2,000 unit) capsule Exam Height,Weight and Vital Signs: Height 5 ft 9 in Weight 83.461 kg Pertinent Lab Results Pertinent Lab Results: Laboratory Tests 06/27/24 06:47 WBC 6.6 Hgb 15.7 Hct 46.1 Plt Count 243 Sodium 140 Potassium 4.1 D Chloride 107 Carbon Dioxide 27 BUN 14 Creatinine 0.79 Narrative Narrative: EKG 2023 Vent. Rate : 069 BPM Atrial Rate : 069 BPM P-R Int : 148 ms QRS Dur : 082 ms QT Int : 408 ms P-R-T Axes : 057 -05 053 degrees QTc Int : 437 ms Normal sinus rhythm Normal ECG No previous ECGs available Assessment and Plan Assessment Anesthesia Assessment: Chart Reviewed Documented by User: Lina Jimenez MD 07/07/24 10:57 PMFSH Past Medical History Medical History (Updated 06/30/24 @ 14:10 by Baljeet Castaneda, [facility]) Physical exam BPH (benign prostatic hyperplasia) Renal cyst, right Screening for colon cancer Chest discomfort Finger joint swelling Sliver Lipid disorder Screening PSA (prostate specific antigen) Epigastric pain Abdominal bloating Dyspepsia Chest pain Viral syndrome Chronic pain High cholesterol Family History Family history of problems with anesthesia: No Surgical History Surgical History H/O colonoscopy History of Problems with Anesthesia: No Social History Social History Housing: House Patient Tobacco Use Status: Former Tobacco user Years Smoked: 30 years ago e-Cigarette/Vaping Use: Never Used Second Hand Smoke Exposure: No Use of substances other than those prescribed or required for medical reasons: No Are you DNR?: No Advance Directives: No Advance Directives Information Provided: Yes Recently lost weight without trying: No service: No Current occupational status: employed 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 Current occupational exposures/hazards: No Cognitive needs: No Hearing needs: No Vision needs: No Meds Allergies Allergy/AdvReac Type Severity Reaction Status Date / Time statins AdvReac Intermediate Muscle Uncoded 05/13/24 15:49 aches Home Medications ?Medication ?Instructions ?Recorded ?Confirmed ?Last Taken ?Type cholecalciferol (vitamin D3) 50 50 mcg PO DAILY 02/14/22 06/30/24 Unknown History mcg (2,000 unit) capsule Exam Airway Mallampati Class: II TM Dist: >3cm Neck ROM: Full Assessment and Plan Assessment Anesthesia Assessment: Anesthesia Plan Discussed Final Anesthetic Review Family History of Problems with Anesthesia: No History of Problems with Anesthesia: No NPO: Yes ASA Class: II Final Preanesthetic Review: No Changes in Pt Med Stat, Meds/Allgs Chart Reviewed, Consent Obtained/Reviewed and Anes Risks/Benef Reviewed Patient Risk: Intermediate Procedure Risk: Intermediate
--- OUTSIDE RECORDS SUMMARY | 2024-07-07 09:42 | XMS_ITS | Clinical Summary ---
Author Organization [employer] [facility] Address [address] [facility] 7 [place] [address] Care Team Providers Care Bicycle Taxi Driver Name Role Phone Pcp, Carolyn Unassigned Primary [...] Description 06/09/2024 4:00 PM EST Office Visit [facility] [address] [place] [address] Becky Tapia LLD 05/07/2024 4:00 PM EST Office Visit [facility] [address] [place] [address] Nancy Rico LLD Encounter for dental examination (Primary Dx); Closed fracture of tooth, initial encounter 04/15/2024 2:00 PM EST Office Visit [facility] [address] [place] [address] Nancy Rico LLD Stage 2 grade B [...] 10/14/2024 4:00 PM EDT Office Visit [facility] [address] [place] [address] Nancy Rico LLD [address] [place] [address] Health Maintenance Due Date Last Done Comments [...] Maintenance Insurance DENTAL - HSN FULL ([place]) [place] [id number] Care Teams Bicycle Taxi Driver Relationship Specialty Start Date End Date Carolyn Crouch Unassigned PCP - General Family Medicine 09/25/22
--- OUTSIDE RECORDS SUMMARY | 2024-07-07 09:42 | XMS_ITS | Encounter Summary ---
Author Organization [employer] Address [address] [facility] 7t [place] [address] Care Team Providers Care Electric Locomotive Crane Operator Name Role Phone PcpCarolyn Unassigned Primary Care [...] PM EDT Office Visit [facility] [address] [place] [address] Nancy Rico LLD [address] [place] [address] documented as of this encounter Visit Diagnoses Not on filedocumented in this encounter Care Teams Electric Locomotive Crane Operator Relationship Specialty Start Date End Date Carolyn Crouchsswhit PCP - General Family Medicine 09/25/22 documented as of this encounter
--- OUTSIDE RECORDS SUMMARY | 2024-07-07 09:42 | XMS_ITS | Encounter Summary ---
Author Organization [facility] Address [address] [facility] 7t [place] [address] Care Team Providers Care Hot Car Operator Name Role Phone PcpCarolyn Unassigned Primary [...] 10/14/2024 4:00 PM EDT Office Visit [facility] [address] [place] [address] Nancy Rico LLD [address] [place] [address] documented as of this encounter Visit Diagnoses Not on filedocumented in this encounter Care Teams Hot Car Operator Relationship Specialty Start Date End Date Carolyn Crouchsswhit PCP - General Family Medicine 09/25/22 documented as of this encounter
--- OUTSIDE RECORDS SUMMARY | 2024-07-07 09:42 | XMS_ITS | Encounter Summary ---
Author Organization [employer] Address [address] [facility] 7t [place] [address] Care Team Providers Care Certified Phlebotomist Name Role Phone Pcp, Carolyn Unassigned Primary Care Provider U navailable Reason for Visit * Reason Comments Dental Exam Encounter Details Date Type Department Care Team (Late st Contact Info) Description 06/09/2024 4:00 PM EST Office Visit [place] [facility] [address] [place] [address] Becky Tapia LLD [address] [place] [address] Social History Tobacco Use Types Packs/Day Years [...] Calderón - 06/09/2024 4:00 PM EST Composite protestant of tooth # 30 Patient presented for dental protestant. Reviewed medical history and history of present illness: Patient's medical history doesn't present contra-indications to care, and MH is non-contributory to present dental illness Medication Taken for Present Illness: none Medical Clearance: none requested Reviewed dental treatment plan Reviewed small dislodgement of existing amalgam protestant clinically, no existing decay, explained to pt tooth is worn and weakened due to long standing large protestant, preferable not to remove remaining filling Anesthesia none needed Isolation was achieved with cotton rolls and 2x2 gauze Etched with 37% phosphoric acid etching gel Bonded with GC Major TPH Flowable composite Adjusted occlusion and margins All surfaces polished Patient pleased with treatment. Patient instructed to return for occlusal adjustments if protestant feels high. All questions were answered. Dismiss Note Secondary Market Manager: Dental Care and patient education provided and emphasized Referral No Oral cancer screening: No significant oral pathology noted. Patient left understanding directions for care Phase I Completed? No Came to visit with : N/A Next Visit - Hygiene [place] documented in this encounter Miscellaneous Notes * Dental Procedure Details - GERHARD Calderón - 06/09/2024 4:00 PM EST Composite protestant of tooth # 30 Patient presented for dental protestant. Reviewed medical history and history of present illness: Patient's medical history doesn't present contra-indications to care, and MH is non-contributory to present dental illness Medication Taken for Present Illness: none Medical Clearance: none requested Reviewed dental treatment plan Reviewed small dislodgement of existing amalgam protestant clinically, no existing decay, explained to pt tooth is worn and weakened due to long standing large protestant, preferable not to remove remaining filling Anesthesia none needed Isolation was achieved with cotton rolls and 2x2 gauze Etched with 37% phosphoric acid etching gel Bonded with GC Major TPH Flowable composite Adjusted occlusion and margins All surfaces polished Patient pleased with treatment. Patient instructed to return for occlusal adjustments if protestant feels high. All questions were answered. Dismiss Note Secondary Market Manager: Dental Care and patient education provided and emphasized Referral No Oral cancer screening: No significant oral pathology noted. Patient left understanding directions for care Phase I Completed? No Came to visit with : N/A Next Visit - Hygiene [place] documented in this encounter Plan of Treatment Upcoming Encounters Date Type Department Care Team (Late st Contact Info) Description 10/14/2024 4:00 PM EDT Office Visit [facility] [address] [place] [address] Nancy Rico LLD [address] [place] [phone] documented as of this encounter Procedures Procedure Name Priority Date/Time Associated Diagnosis Comments 30 CAITLYN RESTORATIVE - RESIN-BASED COMPOSITE RESTORATIONS - DIRECT - RESIN-BASED COMPOSITE - TWO SURFACES, POSTERIOR Routine 06/09/2024 4:00 PM EST documented in this encounter Visit Diagnoses Not on filedocumented in this encounter Care Teams Certified Phlebotomist Relationship Specialty Start Date End Date PcpCarolyn Unassigned PCP - General Family Medicine 09/25/22 documented as of this encounter
--- NOTE | 2024-07-07 10:30 | MHC.SHP ---
Pre-Procedural Eval Section A - 24 Hr Update-Section A only Date of Service: 07/07/24 The patient is an INPATIENT: No Section B - Complete if H&P > 30 days Chief Complaint: Surveillance for colon polyps, GERD Relevant Family History (Specify if Yes): No Relevant Social History: Tobacco Use (Former smoker) Present Medications: see Short Stay Collaborative assessment Medical History: Significant History (Epigastric pain Abdominal bloating Dyspepsia Chest pain Viral syndrome Chronic pain High cholesterol) History of Previous Operations: Relevant previous surgery/procedure and date(s) (History of colonoscopy) Allergies: Allergies Allergy/AdvReac Type Severity Reaction Status Date / Time statins AdvReac Intermediate Muscle Uncoded 05/13/24 15:49 aches Review of Systems Sugical H&P ROS: Negative: Constitution, Cardiovascular, Respiratory and Gastrointestinal Exam Surgical H&P Exam: Normal: Heart, Normal: Lungs, Normal: Extremities and Normal: Abdomen Plan Diagnosis/Plan: Change (Proceed with EGD and Colonoscopy) I have reviewed the history and physical and performed a pertinent physical examination on my patient. No changes have occurred unless specified. Time Spent With Patient Time: Total time managing care of this patient today ____ minutes.
[2024-07-07 10:35] VITALS: BP 145/90; PULSE 77; RESP 16; O2SAT 97; BMI 27.3
[2024-07-07 10:45] VITALS: BP 145/90; PULSE 74; RESP 16; TEMP 36.6; O2SAT 100
[2024-07-07] MEDS: Lactated Ringers 1,000 ML 100 ML IVCONT (10:50)
--- NOTE | 2024-07-07 11:38 | HO.OPN-COLON ---
Colonoscopy Operative Note Operative Note Date of Service: 07/07/24 Narrative: FLEXIBLE TRANSORAL UPPER GASTROINTESTINAL ENDOSCOPY WITH BIOPSIES AND COLONOSCOPY TILL CECUM Pre-op diagnosis: Surveillance for colon polyps, GERD Post-op diagnosis: Gastritis, GERD Colon Polyps, Diverticulosis, hemorrhoids Endoscopist:? No Edwards MD Anesthesia:?MAC UPPER ENDOSCOPY Consent: Indications for the procedure and potential complications of bleeding, perforation, reaction to medications and missed diagnosis were discussed with the patient and informed consent was obtained. Instrument: Olympus GIF H 190 mid size upper endoscope Monitoring: Vital signs and clinical assessment, continuous EKG monitoring, Pulse oximetry, Carbon Dioxide monitoring and blood pressure monitoring were done throughout the procedure. Procedure: The patient was placed in the left lateral decubitis position and pre-procedure medications were administered and a bite block was placed. The endoscope was inserted into the mouth and advanced under direct vision to the third part of duodenum. A careful inspection was made as the upper endoscope was withdrawn including a retroflexed examination of the proximal stomach; Findings and interventions are described below. Findings: Larynx: Edema of arytenoid cartilages Esophagus: GE junction at 40 cms. No esophagitis or Shell's. Stomach: Moderate diffuse gastric erythema - biopsies were obtained from the antrum. Grade 2 flap valve on retroflexed examination of the cardia. Duodenum: Normal bulb and descending duodenum Intervention: Biopsies as noted above COLONOSCOPY PROCEDURE NOTE Instrument: Olympus CF H 190 L variable stiffness adult colonoscope Monitoring: Vital signs and clinical assessment, intermittent blood pressure monitoring, continuous EKG monitoring, Pulse oximetry and Carbon Dioxide monitoring were done throughout the procedure. Please see anesthesia flowsheet. Colon withdrawl time was 16 minutes. Procedure: The patient was placed in the left lateral decubitis position and pre-procedure medications were administered. After a digital rectal examination of the ano-rectum, the video colonoscope was inserted into the rectum and advanced through the colon to the cecum. The colonoscope was slowly withdrawn in a retrograde panoramic fashion and the colon mucosa was carefully examined including a retroflexed view of the rectum. Findings and interventions are described below. Procedure Difficulty: without difficulty Findings: Terminal Ileum: Not evaluated Cecum: Normal Ascending Colon: Normal Transverse Colon: Normal Descending Colon: Moderate diverticulosis Sigmoid Colon: Moderate diverticulosis Rectum: Normal Ano-rectum: Large non-bleeding internal hemorrhoids Colon preparation: Fair despite copious irrigation. There was adherent stool in the right and transvers colon which could not be flushed despite copious irrigation [place] Bowel Preparation Scale Right colon; 1 Transverse colon: 1 Left colon; 2 (0 = Unprepared colon segment with mucosa not seen due to solid stool that cannot be cleared. 1 = Portion of mucosa of the colon segment seen, but other areas of the colon segment not well seen due to staining, residual stool and/or opaque liquid. 2 = Minor amount of residual staining, small fragments of stool and/or opaque liquid, but mucosa of colon segment seen well. 3 = Entire mucosa of colon segment seen well with no residual staining, small fragments of stool or opaque liquid) Impression and Post Procedure Diagnosis: Endoscopy Findings: ESOPHAGUS: STOMACH: DUODENUM: Colonoscopy Findings: No polyps were detected Moderate diverticulosis seen in the left colon large hemorrhoids on retroflexed exam. Plan: Pt has a FU appointment on 07/22/24 with Shikha Connelly NP. Repeat Colonoscopy in 1 years due to suboptimal prep in the right and transverse colon. Above findings were reviewed with the patient and relevant handouts were given and the discharge area.
[2024-07-07 12:13] VITALS: BP 96/55; PULSE 64; RESP 19; TEMP 36.1; O2SAT 96
[2024-07-07 12:28] VITALS: BP 117/70; PULSE 67; RESP 16; TEMP 36.3; O2SAT 97
== END 2024-07-07 13:03 | disposition home or self-care (01) ==
PROVIDERS: PCP Nurse Practitioner Family; Visit Provider Internal Medicine Gastroenterology
PROC: (CPT 45378; principal; 2024-07-07 11:00)
DX: Z12.11 Encounter for screening for malignant neoplasm of colon (principal); K57.30 Diverticulosis of large intestine without perforation or abscess without bleeding; K64.8 Other hemorrhoids; Z86.0101 Personal history of adenomatous and serrated colon polyps; K29.60 Other gastritis without bleeding; K44.9 Diaphragmatic hernia without obstruction or gangrene; K21.9 Gastro-esophageal reflux disease without esophagitis; R14.0 Abdominal distension (gaseous); R10.13 Epigastric pain; I10 Essential (primary) hypertension; E78.5 Hyperlipidemia, unspecified; Z87.891 Personal history of nicotine dependence
CPT/HCPCS: 45378; 43239; 88305; 88313; 88342; J2003; J2250; J2704

== ENCOUNTER → 2024-07-07 09:11 | Outpatient (BNV) | payer OTHER, SELFPAY | PROVIDERS: PCP Nurse Practitioner Family; Visit Provider Internal Medicine Gastroenterology | DX: Z12.11 Encounter for screening for malignant neoplasm of colon (principal); Z86.0100 Personal history of colon polyps, unspecified; K57.90 Diverticulosis of intestine, part unspecified, without perforation or abscess without bleeding; K64.8 Other hemorrhoids; K21.9 Gastro-esophageal reflux disease without esophagitis; K29.70 Gastritis, unspecified, without bleeding | CPT/HCPCS: 43239; 45378 ==

== ENCOUNTER 2024-08-26 12:35 | Outpatient (AMB) | payer OTHER, SELFPAY ==
[2024-08-26 12:36] VITALS: BP 116/78; PULSE 80; O2SAT 96; BMI 27.7
--- NOTE | 2024-08-26 12:36 | A.OFFVIS_ITS ---
Vital Signs 08/26/24 12:36 Height 5 ft 9 in Weight 187 lb 6.287 oz BMI 27.7 BP 116/78 Blood Pressure Location Rt brachial Position Sitting Pulse 80 Pulse Source Pulse Oximeter Pulse Oximetry (%) 96 Oxygen Delivery Method Room Air Intake Visit Reasons: Hyperlipidemia, unspecified Intake Note: New patient present today for Hyperlipidemia, unspecified. 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 Labs last checked 06/27/2024 showed elevated triglycerides at 01:52, elevated cholesterol at 248, LDL cholesterol of 170, HDL cholesterol of 48. 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 Simvastatin, lovastatin, per patient , doesnt remember other names some 20 years ago ezetimibe picked up 12/25/22 once , again had muscle aches. Repatha was sent by PCP, however PA was required, per pharmacy this is not done. Maternal grandfather : of [place] age 64 No early cardiac other than that. Per [place] Lipid criteria: 1 point >unlikely FH Per [facility] Broom criteria unlikely FH ASCVD risk score 7.9% Physical exam General: sitting comfortably in no acute distress HEENT: normocephalic/atraumatic, no arcus cornealis Neck: supple Cardiac: normal heart sounds Pulm: normal breath sounds B/L, no added breath sounds Abd: not distended, no tenderness Extremities: no edema, no signs of myxedema, no tendon xanthomas Skin: no rash, no tendon xanthomas or xanthelasmas Laboratory Tests 07/14/23 09/27/23 06/27/24 06:50 07:13 06:47 Triglycerides 132 166 H 152 H Cholesterol 238 H 216 H 248 H LDL Cholesterol, Calc 169 H 134 H 170 H HDL Cholesterol 49 48 PFSH Medical History (Updated 08/26/24 @ 13:43 by Stacy Seo MD) Hyperlipidemia Physical exam BPH (benign prostatic hyperplasia) Renal cyst, right Screening for colon cancer Chest discomfort Finger joint swelling Sliver Lipid disorder Screening PSA (prostate specific antigen) Epigastric pain Abdominal bloating Dyspepsia Chest pain Viral syndrome Chronic pain High cholesterol Surgical History (Updated 08/26/24 @ 12:41 by JUAN JOSE Hagen) Hx of endoscopy H/O colonoscopy Social History Housing: House Patient Tobacco Use Status: Former Tobacco user Years Smoked: 30 years ago e-Cigarette/Vaping Use: Never Used Second Hand Smoke Exposure: No service: No Current occupational status: employed 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 Current occupational exposures/hazards: No Cognitive needs: No Hearing needs: No Vision needs: No Physical Exam Vital Signs: Last Vital Signs Pulse 80 08/26/24 12:36 BP 116/78 08/26/24 12:36 Pulse Ox 96 08/26/24 12:36 Oxygen Delivery Method Room Air 08/26/24 12:36 BMI result Body Mass Index 27.7 Assessment & Plan Assessment & Plan (1) Hyperlipidemia: Code(s): E78.5 - Hyperlipidemia, unspecified Category: Medical Qualifiers: Hyperlipidemia type: mixed hyperlipidemia Qualified Code(s): E78.2 - Mixed hyperlipidemia Plan: 58-year-old male with hyperlipidemia coming in today for initial evaluation.Labs last checked 06/27/2024 showed elevated triglycerides at 152, elevated cholesterol at 248, LDL cholesterol of 170, HDL cholesterol of 48. ASCVD risk score is 7.9% which classified him as intermediate risk, and per the 2018 [place] heart Association/[place] College [employer] guidelines patient between 40-70 5 years old with intermediate risk per ASA avidity risk calculator, qualify for risk discussion and moderate intensity statin. The aim is to reduce LDL by 30-49%. His risk enhancers include LDL greater than 160 mg/dL. He has tried statins in the past some 20 years ago, he is not sure which statin he has tried but he says it was around 5 or 7 of them. It was muscle aches. At this time we can try low-dose rosuvastatin and start with 3 times a week to see if he is able to tolerate it. His primary care provider did prescribe him Zetia in 2022, apparently had muscle aches to that as well. He does not exactly meet criteria for Repatha given he does not have a set diagnosis of familial hypercholesterolemia or prior history of atherosclerotic disease. Both per the [place] lipid criteria as well as the [facility] criteria, he is at low risk of familial hypercholesterolemia. Bempedoic acid is another option but that is also only approved for these indications. Plan: -extensive lifestyle modification done with regards to both physical activity as well as dietary habits -start rosuvastatin 5 mg daily 3 times a week -repeat lipid panel, do liver function tests, check lipoprotein a levels as well as an A1c in 12 weeks prior to follow up -follow up in 3 months Plan I spent 45 minutes in reviewing the record, seeing the patient and documenting in the medical record. Orders: Orders Lipid Panel 12 Weeks E78.5 - Hyperlipidemia, unspecified Liver Panel 12 Weeks E78.5 - Hyperlipidemia, unspecified Lipoprotein A 12 Weeks E78.5 - Hyperlipidemia, unspecified Hemoglobin A1c 12 Weeks E78.2 - Mixed hyperlipidemia Medications: New rosuvastatin 5 mg PO DAILY 30 tabs 6RF Patient Instructions: start rosuvastatin 5 mg three times a week and if you do not experience any adverse effects after 4 weeks of using it , increase to daily Call our office if any side effects during office hours Do blood work fasting 3-4 days prior to your follow up Aim for 10k steps a day , build up to it slowly, and monitor progress with your phone Avoid red meat , chicken and low fat fish Always baked better than fried Coding Level of Care Code New Pt Level 4 (61177) Diagnoses Mixed hyperlipidemia E78.2 Hyperlipidemia type: mixed hyperlipidemia Time Spent (min) 45
--- OUTSIDE RECORDS SUMMARY | 2024-08-26 14:43 | XMS_ITS | Encounter Summary ---
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
--- OUTSIDE RECORDS SUMMARY | 2024-08-26 14:43 | XMS_ITS | Encounter Summary ---
Author Organization [employer] Address [address] [facility] [address] [place] [address] Care Team Providers Care Loading Unit Operator Name Role Phone PcpCarolyn Unassigned Primary [...] 10/14/2024 4:00 PM EDT Office Visit Carolyn [facility] Dental [address] [place] [address] Nancy Rico LLD [address] [place] [address] documented as of this encounter Visit Diagnoses Not on filedocumented in this encounter Care Teams Loading Unit Operator Relationship Specialty Start Date End Date Carolyn Crouchsswhit PCP - General Family Medicine 09/25/22 documented as of this encounter
--- OUTSIDE RECORDS SUMMARY | 2024-08-26 14:43 | XMS_ITS | Clinical Summary ---
Author Organization [employer] Address [address] [facility] [address] [place] [address] Care Team Providers Care Automatic Mounter Name Role Phone PcpCarolyn Unassigned Primary Care Provider U navailable Allergies [...] Description 06/09/2024 4:00 PM EST Office Visit Carolyn [facility] Dental [address] [place] [address] Becky Tapia LLD from Last 3 Months Immunizations Name Administration [...] 10/14/2024 4:00 PM EDT Office Visit Carolyn [facility] Dental [address] [place] [address] Nancy Rico LLD [address] [place] [address] Health Maintenance Due Date Last Done Comments [...] of 2) 11/29/2017 COVID-19 Vaccine (1 - season) 2024 Influenza Vaccine (#1) 2024 Dental [...] Priority Date/Time Associated Diagnosis Comments 30 CAITLYN RESIN-BASED COMPOSITE - 2 SURF, POSTERIOR Routine 06/09/2024 4:00 PM EST Full PROPHYLAXIS - ADULT Routine 024 2:00 PM EST PERIODIC ORAL EVALUATION - ESTABLISHED PATIENT Routine 04/15/2024 2:00 PM EST BITEWINGS - 4 RADIOGRAPHIC IMAGES Routine 09/27/2023 3:00 PM EDT INTRAORAL - COMPLETE SERIES OF RADIOGRAPHIC IMAGES Routine 08/30/2022 2:00 PM EDT Encounter for dental examination from Last 3 Months or Most Recently Relevant to Health Maintenance Insurance DENTAL - HSN [place] ([place]) [place] [id number] [place] [id number] [place] [id number] Care Teams Automatic Mounter Relationship Specialty Start Date End Date Carolyn Crouch Unassigned PCP - General Family Medicine 09/25/22
== END 2024-08-26 13:31 | disposition home or self-care (01) ==
LOC: HO.ENCR 12:36
PROVIDERS: PCP Nurse Practitioner Family; Visit Provider Student in an Organized Health Care Education/Training Program
DX: E78.2 Mixed hyperlipidemia (principal)
CPT/HCPCS: 99204

== ENCOUNTER → 2024-08-26 12:35 | Outpatient (BNVA) | payer OTHER, SELFPAY | PROVIDERS: PCP Nurse Practitioner Family; Visit Provider Student in an Organized Health Care Education/Training Program | DX: E78.2 Mixed hyperlipidemia (principal) | CPT/HCPCS: 99202 ==

== ENCOUNTER 2024-09-26 13:54 | Outpatient (AMB) | payer OTHER, SELFPAY ==
[2024-09-26 13:59] VITALS: BP 147/80; PULSE 62; O2SAT 100; BMI 27.7
--- NOTE | 2024-09-26 13:59 | MHC.OFFVIS ---
Vital Signs 09/26/24 13:59 Height 5 ft 9 in Weight 187 lb 13.341 oz BMI 27.7 BP 147/80 H Blood Pressure Location Rt brachial Position Sitting Pulse 62 Pulse Source Pulse Oximeter Pulse Oximetry (%) 100 Oxygen Delivery Method Room Air Intake Visit Reasons: s/p EGD and colonoscopy Intake Note: Patient follow up for s/p double results. Allergies statins Adverse Reaction (Intermediate, Uncoded 09/26/24 14:02) Muscle aches HPI HPI s/p EGD and colonoscopy: Details: Assessment & Plan (1) Tubular adenoma of colon: Comment: 2018 scope repeat 5 years Code(s): D12.6 - Benign neoplasm of colon, unspecified Category: Medical Plan Pt has been lost to follow up since 2020. He tolerated the procedure well. He preferred the Suprep. He denies any cardiac or respiratory problems. There are no prior problems with anesthesia or sedation. No ID problems. He has had RB copious over the past week, none really prior to this. At this time he declines any hemorrhoid creams or prescriptions.. Return office visit after the colonoscopy Orders: Orders Colonoscopy - GI Use Only 08/28/23 D12.6 - Benign neoplasm of colon, unspecified Medications: New sodium,potassium,mag sulfates 17.5-3.13-1.6 gram (Suprep Bowel Prep Kit) 480 mL orally; FOR COLONOSCOPY PREP 354 mL 0RF bisacodyl (Dulcolax (bisacodyl)) EGD/ COLONOSCOPY 07/07/24? Findings: Larynx: Edema of arytenoid cartilages Esophagus: GE junction at 40 cms. No esophagitis or Shell's. Stomach: Moderate diffuse gastric erythema - biopsies were obtained from the antrum. Grade 2 flap valve on retroflexed examination of the cardia. Duodenum: Normal bulb and descending duodenum Findings: Terminal Ileum: Not evaluated Cecum: Normal Ascending Colon: Normal Transverse Colon: Normal Descending Colon: Moderate diverticulosis Sigmoid Colon: Moderate diverticulosis Rectum: Normal Ano-rectum: Large non-bleeding internal hemorrhoids Impression and Post Procedure Diagnosis: Endoscopy Findings: LARYNX: Changes suggestive of LPRD ESOPHAGUS: Normal STOMACH: Moderate diffuse gastric erythema - biopsies were obtained from the antrum. DUODENUM: Normal Colonoscopy Findings: No polyps were detected Moderate diverticulosis seen in the left colon large hemorrhoids on retroflexed exam. Plan: Pt has a FU appointment on 07/22/24 with Shikha Connelly NP. Repeat Colonoscopy in 1 year due to suboptimal prep in the right and transverse colon. (Dulcolax 10 mg daily starting 5 days before next colon appointment) Above findings were reviewed with the patient and relevant handouts were given and the discharge area. BIOPSIES SHOWED: A. Stomach, antrum, biopsy: Gastric antral mucosa with mild reactive gastropathy; negative for Helicobacter pylori, intestinal metaplasia and dysplasia. B. Stomach, body, biopsy: Gastric body mucosa within normal limits; negative for Helicobacter pylori, intestinal metaplasia and dysplasia TODAY'S VISIT Repeat Colonoscopy in 1 year due to suboptimal prep in the right and transverse colon. (Dulcolax 10 mg daily starting 5 days before next colon appointment) He did not tolerate the Suprep as it tasted just like the bid jug. HE also has not tolerated PEG in the past. He vomited up the second bottle of SUprep so this is likely why he did not clear. He says the prep that he preferred tasted sweet so Igoogle and I think it may be Clenpiq. We do not have access to the old records to see what he used in the past. His insurance will not cover Sutab. He continues to have a globus sensation. Was on GERD meds years ago and he has not subjective HB but this does not exclude nocturnal reflux. I suggest a trial of pepcid qhs and he is agreeable. If this does not solve the problems he likely will need ENT evaluation. He continues to pass blood with his BM's but they are formed. Scope showed very large IH so this is the likely source. Some abd bloating but no pain. Recommend fiber supplement, and will send roid cream. ROV 6 weeks - tracking request sent for 1 year repeat colonoscopy [facility] Medical History (Updated 09/26/24 @ 14:56 by SALVATORE Martinez) Physical exam Hyperlipidemia BPH (benign prostatic hyperplasia) Renal cyst, right Screening for colon cancer Chest discomfort Finger joint swelling Sliver Lipid disorder Screening PSA (prostate specific antigen) Epigastric pain Abdominal bloating Dyspepsia Chest pain Viral syndrome Chronic pain High cholesterol Surgical History Hx of endoscopy H/O colonoscopy Social History Housing: House Patient Tobacco Use Status: Former Tobacco user Years Smoked: 30 years ago e-Cigarette/Vaping Use: Never Used Second Hand Smoke Exposure: No service: No Current occupational status: employed 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 Current occupational exposures/hazards: No Cognitive needs: No Hearing needs: No Vision needs: No Review of Systems Const Denies fatigue, Denies fever(s), Denies night sweats, Denies poor appetite and Denies weight loss ENT Reports Normal hearing present, Denies dental pain, Denies dysphagia, Denies hearing loss, Denies mouth pain, Denies odynophagia, Denies throat swelling, Denies tongue swelling and Reports other (Dentition adequate) Card Reports no additional complaints Resp Reports no additional complaints GI Details: Globus sensation Denies abdominal pain, Denies melena, Reports bloating, Reports hematochezia, Denies constipation, Denies GI cramping, Denies dysphagia, Denies excessive flatus, Denies early satiety, Denies heartburn, Denies diarrhea, Denies nausea, Denies odynophagia, Denies vomiting and Denies hematemesis Skin/Breast Denies pruritus, Denies lesions, Denies rash and Denies jaundice Neuro Reports Normal hearing present and Denies Abnormal speech present Endo Denies fatigue Aller/Immun Denies throat swelling and Denies tongue swelling Physical Exam Vital Signs: Last Vital Signs Pulse 62 09/26/24 13:59 BP 147/80 H 09/26/24 13:59 Pulse Ox 100 09/26/24 13:59 Oxygen Delivery Method Room Air 09/26/24 13:59 BMI result Body Mass Index 27.7 Const General: cooperative, no acute distress, well developed and well groomed Nutritional Appearance: average body habitus and well nourished Orientation/consciousness: oriented to person, oriented to place and oriented to time Limitations: No language barrier HEENT Head: Yes normocephalic and Yes atraumatic Eyes General: appearance normal, both eyes and all related structures Pupils: Equal, round and reactive pupils present Neck Neck: Yes normal visual inspection and Yes no lymphadenopathy Thyroid: Thyroid normal Resp Effort & Inspection: normal respiratory effort and able to speak in complete sentences Auscultation: clear to auscultation bilaterally Cardio Rate: regular rate Rhythm: regular rhythm Heart sounds: Normal, physiologic split S2 sound present Peripheral pulses: radial pulses present and posterior tibial pulses present GI Inspection: No distended and No Abdominal panniculus present Palpation (GI): Soft to palpation, nontender, no guarding, not rigid and No hepatosplenomegaly present Percussion: Yes normal to percussion Auscultation: normal bowel sounds Rectal Exam - Male: Yes deferred Skin General skin exam: no rashes or lesions noted, turgor normal, skin not dry, no jaundice, No spider nevi and no striae Rashes: no rashes Nails: normal Neuro General: oriented to person, oriented to place and oriented to time Cranial nerves: Yes Equal, round and reactive pupils present and Yes Normal hearing present Speech: No Abnormal speech present Extrem General: Yes normal to inspection, No clubbing, No cyanosis and No edema Psych Appearance: grossly normal and well kempt Mental Status: mental status grossly normal Speech and movement: Normal speech and movement present Affect: normal affect Attitude: cooperative Thought process: Normal thought process present and not confabulating Thought content: Normal thought content present Insight: Limited insight present (Psych) Judgement: Limited judgement present (Psych) Assessment & Plan Assessment & Plan (1) Tubular adenoma of colon: Comment: 2018 scope repeat 5 years Code(s): D12.6 - Benign neoplasm of colon, unspecified Category: Medical (2) Difficulty swallowing: Code(s): R13.10 - Dysphagia, unspecified Category: Medical (3) GERD (gastroesophageal reflux disease): Code(s): K21.9 - Gastro-esophageal reflux disease without esophagitis Category: Medical (4) Bleeding internal hemorrhoids: Code(s): K64.8 - Other hemorrhoids Category: Medical Plan Repeat Colonoscopy in 1 year due to suboptimal prep in the right and transverse colon. (Dulcolax 10 mg daily starting 5 days before next colon appointment) He did not tolerate the Suprep as it tasted just like the bid jug. HE also has not tolerated PEG in the past. He vomited up the second bottle of SUprep so this is likely why he did not clear. He says the prep that he preferred tasted sweet so Igoogle and I think it may be Clenpiq. We do not have access to the old records to see what he used in the past. His insurance will not cover Sutab. He continues to have a globus sensation. Was on GERD meds years ago and he has not subjective HB but this does not exclude nocturnal reflux. I suggest a trial of pepcid qhs and he is agreeable. If this does not solve the problems he likely will need ENT evaluation. He continues to pass blood with his BM's but they are formed. Scope showed very large IH so this is the likely source. Some abd bloating but no pain. Recommend fiber supplement, and will send roid cream. ROV 6 weeks - tracking request sent for 1 year repeat colonoscopy Orders: Orders Colonoscopy - GI Use Only Today D12.6 - Benign neoplasm of colon, unspecified Medications: New sod picosulf-mag ox-citric ac 10 mg-3.5 gram- 12 gram/175 mL (Clenpiq) administer approximately 5 hours before colonoscopy 175 mL PO QAM 350 mL 0RF D12.6 - Benign neoplasm of colon, unspecified hydrocortisone 2.5% (Proctosol HC) BE SURE TO INCLUDE RECTAL APPICATOR!! 1 appl OK BID 30 grams 6RF hemorrhoids K64.9 - Unspecified hemorrhoids famotidine (Pepcid) 40 mg PO BEDTIME 30 tabs 6RF K21.9 - Gastro-esophageal reflux disease without esophagitis Coding Level of Care Code Est Pt Level 4 (49520) Diagnoses Tubular adenoma of colon D12.6 Difficulty swallowing R13.10 GERD (gastroesophageal reflux disease) K21.9 Bleeding internal hemorrhoids K64.8 Time Spent (min) 35
--- OUTSIDE RECORDS SUMMARY | 2024-09-26 14:12 | XMS_ITS | Clinical Summary ---
Author Organization [employer] Address [address] [facility] [address] [place] [address] Care Team Providers Care Group Product Manager Name Role Phone PcpCarolyn Unassigned Primary Care [...] reflux disease with hiatal jose ia 08/30/2022 Immunizations Name Administration Dates Next Due Td [...] Carolyn [facility] Dental [address] [place] [address] Nancy Rico LLD [address] [place] [address] Health Maintenance Due Date Last Done Comments [...] Vaccines (1 of 2) 11/29/2017 COVID-19 Vaccine ( - 2023- season) 2024 Influenza Vaccine (#1) [...] Procedure Name Priority Date/Time Associated Diagnosis Comments Full PROPHYLAXIS - ADULT Routine 024 2:00 PM EST PERIODIC ORAL EVALUATION - ESTABLISHED PATIENT Routine 04/15/2024 2:00 PM EST BITEWINGS - 4 RADIOGRAPHIC IMAGES Routine 09/27/2023 3:00 PM EDT INTRAORAL - COMPLETE SERIES OF RADIOGRAPHIC IMAGES Routine 08/30/2022 2:00 PM EDT Encounter for dental examination from Last 3 Months or Most Recently Relevant to Health Maintenance Insurance DENTAL - HSN FULL (MEDICAID) Care Teams Group Product Manager Relationship Specialty Start Date End Date Carolyn Crouch Unassigned PCP - General Family Medicine 09/25/22
--- OUTSIDE RECORDS SUMMARY | 2024-09-26 14:12 | XMS_ITS | Encounter Summary ---
Author Organization [employer] Address [address] [facility] [address]t [place] [address] Care Team Providers Care Food Service Employee Name Role Phone PcpCarolyn Unassigned Primary Care [...] [facility] Dental [address] [place] [address] Nancy Rioc LLD [address] [place] [address] documented as of this encounter Visit Diagnoses Not on filedocumented in this encounter Care Teams Food Service Employee Relationship Specialty Start Date End Date Carolyn Crouchsswhit PCP - General Family Medicine 09/25/22 documented as of this encounter
--- OUTSIDE RECORDS SUMMARY | 2024-09-26 14:12 | XMS_ITS | Encounter Summary ---
Author Organization [employer] Address [address] [facility] [address] [place] [address] Care Team Providers Care Lurer Name Role Phone PcpCarolyn Unassigned Primary Care [...] 10/14/2024 4:00 PM EDT Office Visit Carolyn [facility] Dental [address] [place] [address] Nancy Rico LLD [address] [place] [address] documented as of this encounter Visit Diagnoses Not on filedocumented in this encounter Care Teams Lurer Relationship Specialty Start Date End Date Carolyn Crouchsswhit PCP - General Family Medicine 09/25/22 documented as of this encounter
== END 2024-09-26 14:52 | disposition home or self-care (01) ==
LOC: HO.HGI 13:54
PROVIDERS: PCP Nurse Practitioner Family; Visit Provider Nurse Practitioner
DX: D12.6 Benign neoplasm of colon, unspecified (principal); R13.10 Dysphagia, unspecified; K21.9 Gastro-esophageal reflux disease without esophagitis; K64.8 Other hemorrhoids
CPT/HCPCS: 99214

== ENCOUNTER → 2024-09-26 13:54 | Outpatient (BNVA) | payer OTHER, SELFPAY | PROVIDERS: PCP Nurse Practitioner Family; Visit Provider Nurse Practitioner | DX: K21.9 Gastro-esophageal reflux disease without esophagitis (principal); K64.8 Other hemorrhoids; D12.6 Benign neoplasm of colon, unspecified; R13.10 Dysphagia, unspecified | CPT/HCPCS: 99212 ==

== ENCOUNTER 2024-11-06 15:00 | Outpatient (AMB) | payer OTHER, SELFPAY ==
--- NOTE | 2024-11-06 15:05 | MHC.OFFVIS ---
Vital Signs 11/06/24 15:06 Height 5 ft 9 in Weight 182 lb BMI 26.9 BP 108/62 Blood Pressure Location Rt brachial Position Sitting Pulse 68 Pulse Source Pulse Oximeter Pulse Oximetry (%) 97 Oxygen Delivery Method Room Air Intake Visit Reasons: bleeding roids, globus, GERD, bloating Intake Note: Established patient for mgmt of GERD, bloating, and hemorrhoids. CC: Pt denies any GI sx or concerns at this time. Landfill Attendant Required: No Accompanied by: Self / Same As Patient Allergies statins Adverse Reaction (Intermediate, Uncoded 11/06/24 15:18) Muscle aches HPI HPI bleeding roids, globus, GERD, bloating: Details: Assessment & Plan (1) Tubular adenoma of colon: Comment: 2018 scope repeat 5 years Code(s): D12.6 - Benign neoplasm of colon, unspecified Category: Medical (2) Difficulty swallowing: Code(s): R13.10 - Dysphagia, unspecified Category: Medical (3) GERD (gastroesophageal reflux disease): Code(s): K21.9 - Gastro-esophageal reflux disease without esophagitis Category: Medical (4) Bleeding internal hemorrhoids: Code(s): K64.8 - Other hemorrhoids Category: Medical Plan Repeat Colonoscopy in 1 year due to suboptimal prep in the right and transverse colon. (Dulcolax 10 mg daily starting 5 days before next colon appointment) He did not tolerate the Suprep as it tasted just like the bid jug. HE also has not tolerated PEG in the past. He vomited up the second bottle of SUprep so this is likely why he did not clear. He says the prep that he preferred tasted sweet so I google and I think it may be Clenpiq. We do not have access to the old records to see what he used in the past. His insurance will not cover Sutab. He continues to have a globus sensation. Was on GERD meds years ago and he has not subjective HB but this does not exclude nocturnal reflux. I suggest a trial of pepcid qhs and he is agreeable. If this does not solve the problems he likely will need ENT evaluation. He continues to pass blood with his BM's but they are formed. Scope showed very large IH so this is the likely source. Some abd bloating but no pain. Recommend fiber supplement, and will send roid cream. ROV 6 weeks - tracking request sent for 1 year repeat colonoscopy Orders: Orders Colonoscopy - GI Use Only Today D12.6 - Benign neoplasm of colon, unspecified Medications: New sod picosulf-mag ox-citric ac 10 mg-3.5 gram- 12 gram/175 mL (Clenpiq) administer approximately 5 hours before colonoscopy 175 mL PO QAM 350 mL 0RF D12.6 - Benign neoplasm of colon, unspecified hydrocortisone 2.5% (Proctosol HC) BE SURE TO INCLUDE RECTAL APPICATOR!! 1 appl [place] BID 30 grams 6RF hemorrhoids K64.9 - Unspecified hemorrhoids famotidine (Pepcid) 40 mg PO BEDTIME 30 tabs 6RF K21.9 - Gastro-esophageal reflux disease without esophagitis COLONOSCOPY BIOPSY TODAYS VISIT The famotidine cured his globus sensation. We will continue this. His rectal bleeding has been better, but he was given only hydrocortisone cream at the pharmacy, so we discuss OTC Preparation H Suppositories to use instead. He DID start the fiber and his stools are softer. ROV 6 mos. PFSH Medical History Physical exam Hyperlipidemia BPH (benign prostatic hyperplasia) Renal cyst, right Screening for colon cancer Chest discomfort Finger joint swelling Sliver Lipid disorder Screening PSA (prostate specific antigen) Epigastric pain Abdominal bloating Dyspepsia Chest pain Viral syndrome Chronic pain High cholesterol Surgical History Hx of endoscopy H/O colonoscopy Social History Housing: House Patient Tobacco Use Status: Former Tobacco user Years Smoked: 30 years ago e-Cigarette/Vaping Use: Never Used Second Hand Smoke Exposure: No service: No Current occupational status: employed 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 Current occupational exposures/hazards: No Cognitive needs: No Hearing needs: No Vision needs: No Review of Systems Const Denies fatigue, Denies fever(s), Denies night sweats, Denies poor appetite and Denies weight loss ENT Reports Normal hearing present, Denies dental pain, Denies dysphagia, Denies hearing loss, Denies mouth pain, Denies odynophagia, Denies throat swelling, Denies tongue swelling and Reports other (Dentition adequate) Card Reports no additional complaints Resp Reports no additional complaints GI Details: Denies abdominal pain, Denies melena, Denies bloating, Reports hematochezia, Reports constipation, Denies GI cramping, Denies dysphagia, Denies excessive flatus, Denies early satiety, Reports heartburn, Denies diarrhea, Denies nausea, Denies odynophagia, Denies vomiting and Denies hematemesis Skin/Breast Denies pruritus, Denies lesions, Denies rash and Denies jaundice Neuro Reports Normal hearing present and Denies Abnormal speech present Endo Denies fatigue Aller/Immun Denies throat swelling and Denies tongue swelling Physical Exam Vital Signs: Last Vital Signs Pulse 68 11/06/24 15:06 BP 108/62 11/06/24 15:06 Pulse Ox 97 11/06/24 15:06 Oxygen Delivery Method Room Air 11/06/24 15:06 BMI result Body Mass Index 26.9 Const General: cooperative, no acute distress, well developed and well groomed Nutritional Appearance: average body habitus and well nourished Orientation/consciousness: oriented to person, oriented to place and oriented to time Limitations: No language barrier HEENT Head: Yes normocephalic and Yes atraumatic Eyes General: appearance normal, both eyes and all related structures Pupils: Equal, round and reactive pupils present Neck Neck: Yes normal visual inspection and Yes no lymphadenopathy Thyroid: Thyroid normal Resp Effort & Inspection: normal respiratory effort and able to speak in complete sentences Auscultation: clear to auscultation bilaterally Cardio Rate: regular rate Rhythm: regular rhythm Heart sounds: Normal, physiologic split S2 sound present Peripheral pulses: radial pulses present and posterior tibial pulses present GI Inspection: No distended and No Abdominal panniculus present Palpation (GI): Soft to palpation, nontender, no guarding, not rigid and No hepatosplenomegaly present Percussion: Yes normal to percussion Auscultation: normal bowel sounds Rectal Exam - Male: Yes deferred Skin General skin exam: no rashes or lesions noted, turgor normal, skin not dry, no jaundice, No spider nevi and no striae Rashes: no rashes Nails: normal Neuro General: oriented to person, oriented to place and oriented to time Cranial nerves: Yes Equal, round and reactive pupils present and Yes Normal hearing present Speech: No Abnormal speech present Extrem General: Yes normal to inspection, No clubbing, No cyanosis and No edema Psych Appearance: grossly normal and well kempt Mental Status: mental status grossly normal Speech and movement: Normal speech and movement present Affect: normal affect Attitude: cooperative Thought process: Normal thought process present and not confabulating Thought content: Normal thought content present Insight: Limited insight present (Psych) Judgement: Limited judgement present (Psych) Assessment & Plan Assessment & Plan (1) Bleeding internal hemorrhoids: Code(s): K64.8 - Other hemorrhoids Category: Medical (2) Difficulty swallowing: Code(s): R13.10 - Dysphagia, unspecified Category: Medical (3) GERD (gastroesophageal reflux disease): Code(s): K21.9 - Gastro-esophageal reflux disease without esophagitis Category: Medical Plan The famotidine cured his globus sensation. We will continue this. His rectal bleeding has been better, but he was given only hydrocortisone cream at the pharmacy, so we discuss OTC Preparation H Suppositories to use instead. He DID start the fiber and his stools are softer. ROV 6 mos. COLONOSCOPY Needs a 1 year repeat from his 06/2024 scope BIOPSY Medications: Refilled famotidine (Pepcid) 40 mg PO BEDTIME 30 tabs 6RF K21.9 - Gastro-esophageal reflux disease without esophagitis Discontinued hydrocortisone 2.5% (Proctosol HC) BE SURE TO INCLUDE RECTAL APPICATOR!! Discontinued Reason: Doctor's Order 1 appl NJ BID 30 grams 6RF hemorrhoids K64.9 - Unspecified hemorrhoids Coding Level of Care Code Est Pt Level 3 (18360) Diagnoses Bleeding internal hemorrhoids K64.8 Difficulty swallowing R13.10 GERD (gastroesophageal reflux disease) K21.9
[2024-11-06 15:06] VITALS: BP 108/62; PULSE 68; O2SAT 97; BMI 26.9
--- OUTSIDE RECORDS SUMMARY | 2024-11-06 17:40 | XMS_ITS | Clinical Summary ---
Author Organization [employer] Address [address] [place] [address] [address] [place] [address] Care Team Providers Care Thread Marker Name Role Phone PcpCarolyn Unassigned Primary Care [...] Encounters Date Type Department Care Team Description 10/29/2024 10:00 AM EDT Office Visit [facility] [address] [place] [address] Becky Tapia LLD 10/28/2024 10:30 AM EDT Office Visit [facility] [address] [place] [address] Nancy Rico LLD Encounter for dental examination (Primary Dx) 10/14/2024 4:00 PM EDT Office Visit [facility] [address] [place] [address] Nancy Rico LLD Stage 2 grade B generalized periodontitis per AAP/EFP 2017 classification (Primary Dx); Encounter for dental examination from Last 3 Months Immunizations Immunization Administration Dates Next Due Td (adult), unspecified [...] Sign Reading Time Taken Comments Blood Pressure 155/89 10/29/2024 10:00 AM EDT Pulse 69 10/29/2024 10:00 AM EDT Temperature - - Respiratory Rate - - Oxygen Saturation - - Inhaled Oxygen Concentration - - Weight 81.6 kg (180 lb) 08/30/2022 2:03 PM EDT Height - - Body Mass Index - - Plan of Treatment Upcoming Encounters Date Type Department Care Team (Late st Contact Info) Description 04/15/2025 4:00 PM EST Office Visit [place] [facility] [address] [place] [address] Nancy Rico LLD [address] [place] [address] Health Maintenance Due Date Last Done Comments CT Colonography 1967 Colonoscopy 1967 Colorectal Cancer Screening 1967 Depression Screening 1967 FIT DNA/Cologuard 1967 FIT 1967 FOBT 1967 HIV Screening 1967 Lipid Panel 1967 SDOH Screening 1967 Sigmoidoscopy 1967 Disability Screening 1967 Alcohol/Substance Use Screening 1979 Hepatitis C Screening 11/29/1985 Hepatitis B Vaccines (1 of 3 - 19+ 3-dose series) 11/29/1986 Pneumococcal Vaccine: 50+ Years (1 of 1 - PCV) 11/29/2017 Zoster Vaccines (1 of 2) 11/29/2017 COVID-19 Vaccine (1 - season) 2024 Influenza Vaccine (Season Ended) 2025 Dental Oral Exam 04/17/2025 10/14/2024, , 09/27/2023, Additional history exists Dental Prophylaxis 04/17/2025 10/14/2024, 1 06/15/2023, 09/27/2023, Additional history exists Dental X-Ray: Full Mouth 08/31/2025 08/30/2022, 1207/2018 Dental X-Ray: Bitewings 10/15/2025 10/15/19 25, 09/27/2023, 08/30/2022, Additional history exists Tobacco Screening 10/29/2025 10/29/2024 DTaP/Tdap/Td Vaccines (3 - Td or Tdap) [...] patient's age to complete this topic Meningococcal B Vaccine Aged Out No l onger eligible based on patient's age to complete [...] Procedure Name Priority Date/Time Associated Diagnosis Comments 10 MIDFL RESIN-BASED COMPOSITE - 4 OR MORE SURFACES (ANTERIOR) Routine 10/29/2024 10:00 AM EDT INTRAORAL - PERIAPICAL FIRST RADIOGRAPHIC IMAGE Routine 10/28/2024 10:30 AM EDT LIMITED ORAL EVALUATION - PROBLEM FOCUSED Routine 10/28/2024 10:30 AM EDT ORAL HYGIENE INSTRUCTIONS Routine 10/14/2024 4:00 PM EDT BITEWINGS - 4 RADIOGRAPHIC IMAGES Routine 10/14/2024 4:00 PM EDT Full PROPHYLAXIS - ADULT Routine 025 4:00 PM EDT PERIODIC ORAL EVALUATION - ESTABLISHED PATIENT Routine 10/14/2024 4:00 PM EDT INTRAORAL - COMPLETE SERIES OF RADIOGRAPHIC IMAGES Routine 08/30/2022 2:00 PM EDT Encounter for dental examination from Last 3 Months or Most Recently Relevant to Health Maintenance Insurance DENTAL - HSN FULL (MEDICAID) Care Teams Thread Marker Relationship Specialty Start Date End Date Carolyn Crouch Unassigned PCP - General Family Medicine 09/25/22
== END 2024-11-06 15:56 | disposition home or self-care (01) ==
LOC: HO.HGI 15:02
PROVIDERS: PCP Nurse Practitioner Family; Visit Provider Nurse Practitioner
DX: K64.8 Other hemorrhoids (principal); R13.10 Dysphagia, unspecified; K21.9 Gastro-esophageal reflux disease without esophagitis
CPT/HCPCS: 99213

== ENCOUNTER → 2024-11-06 15:00 | Outpatient (BNVA) | payer OTHER, SELFPAY | PROVIDERS: PCP Nurse Practitioner Family; Visit Provider Nurse Practitioner | DX: K21.9 Gastro-esophageal reflux disease without esophagitis (principal); R13.10 Dysphagia, unspecified; K64.8 Other hemorrhoids | CPT/HCPCS: 99212 ==

== ENCOUNTER 2024-11-17 07:58 | Outpatient (REF) | payer OTHER, SELFPAY ==
--- OUTSIDE RECORDS SUMMARY | 2024-11-17 08:03 | XMS_ITS | Clinical Summary ---
Author Organization [employer] Address [address] [place] [address] 7 [place] [address] Care Team Providers Care Derrick Boat Captain Name Role Phone PcpCarolyn Unassigned [...] Description 10/29/2024 10:00 AM EDT Office Visit [facility] [address] [place] [address] Becky Tapia LLD 10/28/2024 10:30 AM EDT Office Visit [facility] [address] [place] [address] Nancy Rico LLD Encounter for dental examination (Primary Dx) 10/14/2024 4:00 PM EDT Office Visit [facility] [address] [place] [address] Nancy Rico LLD Stage 2 grade B [...] Description 04/15/2025 4:00 PM EST Office Visit [place] [facility] [address] [place] [address] Nancy Rico LLD [address] [place] [address] Health Maintenance Due Date Last Done Comments [...] DENTAL - HSN FULL (MEDICAID) Care Teams Derrick Boat Captain Relationship Specialty Start Date End Date Carolyn Crouch Unassigned PCP - General Family Medicine 09/25/22
[2024-11-17 10:41] LABS: Alanine Aminotransferase 30 U/L (0-40); Albumin Level 4.4 g/dL (3.5-5.0); Alkaline Phosphatase 53 U/L (39-117); Anion Gap 10 (12-20); Aspartate Amino Transferase 32 U/L (5-37); Bilirubin Direct 0.2 mg/dL (0.0-0.5); Bilirubin Total 0.5 mg/dL (0.0-1.0); Blood Urea Nitrogen 14 mg/dL (9-16); Calcium 9.2 mg/dL (8.4-10.2); Carbon Dioxide 25 mmol/L (22-29); Chloride 109 mmol/L (96-108); Cholesterol 179 mg/dL (<200); Estimated Glomerular Filt Rate > 60; Glucose Fasting 92 mg/dL (60-99); HDL Cholesterol 45 mg/dL (>40); LDL Cholesterol Calculated 104 mg/dL (<100); Potassium 4.2 mmol/L (3.3-5.1); Sodium 140 mmol/L (135-145); Total Protein 7.1 g/dL (6.5-8.0); Triglycerides 154 mg/dL (<150)
[2024-11-17 10:44] LABS: Estimated Average Glucose 105 mg/dL; Hemoglobin A1c % 5.3 % (<6.0)
[2024-11-17 11:09] LABS: Prostate Specific Antigen 0.27 ng/mL (<0.05-4.0)
[2024-11-20 07:28] LABS: Lipoprotein A <10 nmol/L (<75)
== END 2024-11-17 07:59 | disposition home or self-care (01) ==
LOC: HO.HMGCLDS 07:58
PROVIDERS: Urology; PCP Nurse Practitioner Family; Visit Provider Student in an Organized Health Care Education/Training Program
DX: Z00.00 Encounter for general adult medical examination without abnormal findings (principal); Z12.5 Encounter for screening for malignant neoplasm of prostate; R35.0 Frequency of micturition; R31.29 Other microscopic hematuria; E78.2 Mixed hyperlipidemia
CPT/HCPCS: 36415; 80053; 80061; 80076; 82248; 83036; 83695; 84153

== ENCOUNTER 2024-11-19 13:33 | Outpatient (AMB) | payer OTHER, SELFPAY ==
--- NOTE | 2024-11-19 13:45 | MHC.OFFWIV ---
Intake Vital Signs 11/19/24 13:46 Height 5 ft 9 in Weight 187 lb 8 oz BMI 27.7 BP 104/70 Blood Pressure Location Rt brachial Position Sitting Pulse 64 Pulse Source Pulse Oximeter Temp 98.3 F Temp Source Oral Pulse Oximetry (%) 97 Oxygen Delivery Method Room Air Intake Visit Reasons: EP sore back of mouth/throat Patient Tobacco Use Status: Former Tobacco user Allergies statins Adverse Reaction (Intermediate, Uncoded 11/06/24 15:18) Muscle aches HPI HPI Comments History of Present Illness Details History of Present Illness - The patient is a 58-year-old male presenting with pain in the roof of the mouth and throat discomfort. - Reports a painful sensation on the left side of the palate, exacerbated by contact with food. - Symptoms began the previous day during lunch after eating spicy chips. - Denies previous occurrences of similar lesions. - Associated symptoms include a persistent headache and no fever. - Consumed spicy food, specifically hot potato chips, which may have triggered the irritation. - Has been using salt water rinses without significant relief. - He denies fever, chills, sinus pain, CP, SOB, runny nose, post nasal drip or congestion. - He denies smoking. Physical Exam General: Cooperative, healthy appearing, comfortable, no acute distress and well developed Head: Normal to inspection Ears: Hearing grossly normal bilaterally, TM's normal Nose: Normal external nose present Face and sinus: Normal facial exam. No sinus tenderness noted. Mouth: Small, flat, open, ulcer noted on the left upper soft palate. Uvula is midline, oropharynx is not erythematous with no exudates noted. Moist mucosa noted. Neck: Normal visual inspection and full ROM. No lymphadenopathy noted. Respiratory: Normal respiratory effort and able to speak in complete sentences. Clear to auscultation bilaterally Cardiovascular: Regular rate and rhythm. Normal S1 and S2 Skin: No rashes or lesions noted Patient was informed and verbally consented to the use of an ambient scribe for clinic note documentation during this visit. [facility] Medical History Physical exam Hyperlipidemia BPH (benign prostatic hyperplasia) Renal cyst, right Screening for colon cancer Chest discomfort Finger joint swelling Sliver Lipid disorder Screening PSA (prostate specific antigen) Epigastric pain Abdominal bloating Dyspepsia Chest pain Viral syndrome Chronic pain High cholesterol Surgical History Hx of endoscopy H/O colonoscopy Social History Housing: House Patient Tobacco Use Status: Former Tobacco user Years Smoked: 30 years ago e-Cigarette/Vaping Use: Never Used Second Hand Smoke Exposure: No service: No Current occupational status: employed 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 Current occupational exposures/hazards: No Cognitive needs: No Hearing needs: No Vision needs: No Review of Systems Const All systems reviewed & are unremarkable except as noted in HPI and below Physical Exam Vital Signs: Last Vital Signs Temp 98.3 F 11/19/24 13:46 Pulse 64 11/19/24 13:46 BP 104/70 11/19/24 13:46 Pulse Ox 97 11/19/24 13:46 Oxygen Delivery Method Room Air 11/19/24 13:46 BMI result Body Mass Index 27.7 Results AMB Rapid Strep AMB Rapid Strep Negative Last Edit by Kiran Bui CMA on 11/19/24 13:58 Results Reviewed Results Reviewed: Laboratory Last Values Strep Scn Rapid Clinic Negative 11/19/24 13:58 Assessment & Plan Assessment & Plan (1) Canker sores oral: Code(s): K12.0 - Recurrent oral aphthae Plan Most likely canker sore vs ulcer rapid strep in the office was negative plan- - Diet as tolerated - Avoid spicy, acidic, or salty foods - Salt water gargles - Magic mouthwash as needed - tylenol or motrin as needed - follow up with PCP or dentist Orders: Orders AMB Rapid Strep Screen Today Z13.9 - Encounter for screening, unspecified Medications: New Magic Mouthwash Diphen/Lido/Antacid 1:1:1 Lidocaine Viscous 2 % 80mL; diphenhydramine 12.5 mg/5 mL 80mL; aluminum-mag hydrox-simeth [id number]/5mL 80mL 5 mL PO Q6-8H 240 mL 0RF Coding Level of Care Code Est Pt Level 3 (12254) Diagnoses Canker sores oral K12.0
[2024-11-19 13:46] VITALS: BP 104/70; PULSE 64; TEMP 36.8; O2SAT 97; BMI 27.7
--- OUTSIDE RECORDS SUMMARY | 2024-11-19 15:58 | XMS_ITS | Clinical Summary ---
Author Organization [employer] Address [address] [place] [address] [address] [place] [address] Care Team Providers Care Combination Operator Name Role Phone PcpCarolyn Unassigned Primary [...] Description 10/29/2024 10:00 AM EDT Office Visit [facility] [address] [place] [address] Becky Tapia LLD 10/28/2024 10:30 AM EDT Office Visit [facility] [address] [place] [address] Nancy Rico LLD Encounter for dental examination (Primary Dx) 10/14/2024 4:00 PM EDT Office Visit [facility] [address] [place] [address] Nancy Rico LLD Stage 2 grade B [...] Description 04/15/2025 4:00 PM EST Office Visit [facility] [facility] [address] [place] [address] Nancy Rico LLD [address] [place] [address] Health Maintenance Due Date Last Done Comments [...] DENTAL - HSN FULL (MEDICAID) Care Teams Combination Operator Relationship Specialty Start Date End Date Carolyn Crouch Unassigned PCP - General Family Medicine 09/25/22
== END 2024-11-19 14:27 | disposition home or self-care (01) ==
PROVIDERS: PCP Nurse Practitioner Family; Visit Provider Physician Assistant Medical
DX: K12.0 Recurrent oral aphthae (principal); J02.9 Acute pharyngitis, unspecified

== ENCOUNTER → 2024-11-19 13:33 | Outpatient (BNVA) | payer OTHER, SELFPAY | PROVIDERS: PCP Nurse Practitioner Family; Visit Provider Physician Assistant Medical | DX: K12.0 Recurrent oral aphthae (principal) | CPT/HCPCS: 87880; 99212 ==

== ENCOUNTER 2024-11-25 15:50 | Outpatient (AMB) | payer OTHER, SELFPAY ==
--- NOTE | 2024-11-25 15:51 | MHC.OFFVIS ---
Vital Signs 11/25/24 15:52 Height 5 ft 9 in Weight 188 lb 4.396 oz BMI 27.8 BP 128/90 H Blood Pressure Location Lt brachial Position Sitting Pulse 70 Pulse Source Pulse Oximeter Pulse Oximetry (%) 95 Oxygen Delivery Method Room Air Intake Visit Reasons: Hyperlipidemia Intake Note: Patient present today for Hyperlipidemia office visit. 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 HPI Labs last checked 06/27/2024 showed elevated triglycerides at 01:52, elevated cholesterol at 248, LDL cholesterol of 170, HDL cholesterol of 48. 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 Simvastatin, lovastatin, per patient , doesnt remember other names some 20 years ago ezetimibe picked up 12/25/22 once , again had muscle aches. Repatha was sent by PCP, however PA was required, per pharmacy this is not done. Maternal grandfather : of [place] age 64 No early cardiac other than that. Per [place] Lipid criteria: 1 point >unlikely FH Per [facility] criteria unlikely FH ASCVD risk score 7.9% Interval history Started rosuvastatin 5 mg beginning of August 2024 3 times a week for a month, then changed it to every other day for a month, and now taking daily Labs repeated 11/17/2024: Showed triglyceride 154, cholesterol of 179, LDL at 104, HDL 45, lipoprotein a less than 10 Physical exam General: sitting comfortably in no acute distress HEENT: normocephalic/atraumatic, no arcus cornealis Neck: supple Cardiac: normal heart sounds Pulm: normal breath sounds B/L, no added breath sounds Abd: not distended, no tenderness Extremities: no edema, no signs of myxedema, no tendon xanthomas Skin: no rash, no tendon xanthomas or xanthelasmas Laboratory Tests 07/14/23 09/27/23 06/27/24 06:50 07:13 06:47 Triglycerides 132 166 H 152 H Cholesterol 238 H 216 H 248 H LDL Cholesterol, Calc 169 H 134 H 170 H HDL Cholesterol 49 48 Laboratory Tests 11/17/24 08:10 Triglycerides 154 H Cholesterol 179 LDL Cholesterol, Calc 104 H HDL Cholesterol 45 Lipoprotein (a) <10 Laboratory Tests 11/17/24 08:10 Hemoglobin A1c % 5.3 AST 32 ALT 30 PFSH Medical History Physical exam Hyperlipidemia BPH (benign prostatic hyperplasia) Renal cyst, right Screening for colon cancer Chest discomfort Finger joint swelling Sliver Lipid disorder Screening PSA (prostate specific antigen) Epigastric pain Abdominal bloating Dyspepsia Chest pain Viral syndrome Chronic pain High cholesterol Surgical History Hx of endoscopy H/O colonoscopy Social History Housing: House Patient Tobacco Use Status: Former Tobacco user Years Smoked: 30 years ago e-Cigarette/Vaping Use: Never Used Second Hand Smoke Exposure: No service: No Current occupational status: employed 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 Current occupational exposures/hazards: No Cognitive needs: No Hearing needs: No Vision needs: No Physical Exam Vital Signs: Last Vital Signs Pulse 70 11/25/24 15:52 BP 128/90 H 11/25/24 15:52 Pulse Ox 95 11/25/24 15:52 Oxygen Delivery Method Room Air 11/25/24 15:52 BMI result Body Mass Index 27.8 Assessment & Plan Assessment & Plan (1) Hyperlipidemia: Code(s): E78.5 - Hyperlipidemia, unspecified Category: Medical Qualifiers: Hyperlipidemia type: mixed hyperlipidemia Qualified Code(s): E78.2 - Mixed hyperlipidemia Plan: 58-year-old male with hyperlipidemia coming in today for follow up .Labs checked 06/27/2024 showed elevated triglycerides at 152, elevated cholesterol at 248, LDL cholesterol of 170, HDL cholesterol of 48. ASCVD risk score is 7.9% which classified him as intermediate risk, and per the 2018 [place] [employer]/[place] [employer] guidelines patient between 40-75 years old with intermediate risk per Ascvd risk calculator, qualify for risk discussion and moderate intensity statin. The aim is to reduce LDL by 30-49%. His risk enhancers include LDL greater than 160 mg/dL. He has tried statins in the past some 20 years ago, he is not sure which statin he has tried but he says it was around 5 or 7 of them. It was muscle aches. His primary care provider did prescribe him Zetia in 2022, apparently had muscle aches to that as well. He does not exactly meet criteria for Repatha given he does not have a set diagnosis of familial hypercholesterolemia or prior history of atherosclerotic disease. Both per the [place] lipid criteria as well as the [facility] criteria, he is at low risk of familial hypercholesterolemia. Bempedoic acid is another option but that is also only approved for these indications. We started rosuvastatin 5 mg beginning of August 2024 1st taking it 3 times a week for a month, then he moved it up to every other day during September 2024 and now he is on daily dosage. Labs done most recently 11/17/2024: Showed triglyceride 154, cholesterol of 179, LDL at 104, HDL 45, lipoprotein a less than 10. LDL significantly improved. Would continue him on rosuvastatin daily. He is tolerating it well. At this time he does not need to follow up with me for hyperlipidemia. His primary care physician can manage this. Lipid panel can be repeated in another 6 months to a year to monitor for improvement. Plan: -extensive lifestyle modification done with regards to both physical activity as well as dietary habits -continue rosuvastatin 5 mg daily, he has a enough refills to last him up until Raquel February 2025, I told him after that he should ask his primary care to refill this. -primary care to repeat lipid panel every 6 months to a year. All questions were answered. Patient verbalized understanding. Plan See above Coding Level of Care Code Est Pt Level 3 (31124) Diagnoses Mixed hyperlipidemia E78.2 Hyperlipidemia type: mixed hyperlipidemia
[2024-11-25 15:52] VITALS: BP 128/90; PULSE 70; O2SAT 95; BMI 27.8
--- OUTSIDE RECORDS SUMMARY | 2024-11-25 16:21 | XMS_ITS | Clinical Summary ---
Author Organization [employer] Address [address] [place] [address] [address] [place] [address] Care Team Providers Care Integration Software Developer Name Role Phone PcpCarolyn Unassigned Primary Care [...] Description 10/29/2024 10:00 AM EDT Office Visit [facility] [address] [place] [address] Becky Tapia LLD 10/28/2024 10:30 AM EDT Office Visit [facility] [address] [place] [address] Nancy Rico LLD Encounter for dental examination (Primary Dx) 10/14/2024 4:00 PM EDT Office Visit [facility] [address] [place] [address] Nancy Rico LLD Stage 2 grade B [...] Description 04/15/2025 4:00 PM EST Office Visit [facility] [address] [place] [address] Nancy Rico LLD [address] [place] [address] Health Maintenance Due Date Last Done Comments [...] DENTAL - HSN FULL (MEDICAID) Care Teams Integration Software Developer Relationship Specialty Start Date End Date Carolyn Crouch Unassigned PCP - General Family Medicine 09/25/22
== END 2024-11-25 16:08 | disposition home or self-care (01) ==
LOC: HO.ENCR 15:51
PROVIDERS: PCP Nurse Practitioner Family; Visit Provider Student in an Organized Health Care Education/Training Program
DX: E78.2 Mixed hyperlipidemia (principal)
CPT/HCPCS: 99213

== ENCOUNTER → 2024-11-25 15:50 | Outpatient (BNVA) | payer OTHER, SELFPAY | PROVIDERS: PCP Nurse Practitioner Family; Visit Provider Student in an Organized Health Care Education/Training Program | DX: E78.2 Mixed hyperlipidemia (principal) | CPT/HCPCS: 99212 ==

== ENCOUNTER 2024-12-29 15:53 | Outpatient (AMB) | payer OTHER, SELFPAY ==
[2024-12-29 15:55] VITALS: BP 110/78; PULSE 63; RESP 16; O2SAT 95; BMI 27.5
--- NOTE | 2024-12-29 15:55 | A.OFFPC_ITS ---
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 Accompanied by: Self / Same As Patient Allergies statins Adverse Reaction (Intermediate, Uncoded 12/29/24 16:29) Muscle aches Medication List - Last Reconciled 12/29/24 by Baljeet Castaneda [facility]- cholecalciferol (vitamin D3) 50 mcg PO DAILY famotidine (Pepcid) 40 mg PO BEDTIME ibuprofen 800 mg PO Q6-8H PRN lisinopril 40 mg PO DAILY Magic Mouthwash Diphen/Lido/Antacid 1:1:1 5 mL PO Q6-8H rosuvastatin 5 mg PO DAILY Tobacco use date assessed: 12/29/24 Dental Screening Dental Screen Date: 12/29/24 Did you have a dental visit in the last 12 months?: Yes Did you have a dental problem in the last 6 months where you did not have access to dental care?: No Was dental information given to patient?: Patient has dentist HPI 6m follow up HPI Details Chief Complaint The patient presents for management of hyperlipidemia. History of Present Illness The patient is a 59-year-old male presenting for hyperlipidemia management. He is currently on rosuvastatin 5 mg, which he takes daily in the morning without any adverse effects such as myalgia. His LDL cholesterol has decreased from 170 mg/dL to 104 mg/dL, indicating a positive response to the medication. HTN: stable The patient has been advised to switch the timing of his medication to nighttime to potentially enhance its efficacy. Follow-up laboratory tests are planned in a few months to monitor his cholesterol levels and assess the continued effectiveness of the treatment. Social History Health Maintenance Review of Systems denies any cp, sob, dizziness, fevers, chills, n/v, blurred vision Physical Exam General: Cooperative, healthy appearing, comfortable, no acute distress and well developed Orientation: Patient oriented x3 Limitations: No limitations Head: Normal to inspection Ears: Hearing grossly normal bilaterally Nose: Normal external nose present Face and sinus: Normal facial exam Eyes: Appearance normal, both eyes and all related structures Neck: Normal visual inspection and Yes full ROM Respiratory: Normal respiratory effort and able to speak in complete sentences. Clear to auscultation bilaterally Cardiovascular: Regular rate and rhythm. S1 clear, no carotid bruits noted GI: Normal to inspection. Soft to palpation and nontender Skin: No rashes or lesions noted Neuro: Patient oriented x3 Extremities: Normal to inspection, no edema noted Results - Labs: LDL cholesterol decreased from 1 70 mg/dL to 104 mg/dL Plan The patient will continue on rosuvastatin 5 mg, with a change in administration time to nighttime to potentially improve lipid control. Regular follow-up laboratory tests will be conducted in a few months to monitor cholesterol levels and ensure the medication's efficacy. Discussion Notes I discussed with the patient the positive trend in his cholesterol levels and the importance of continuing rosuvastatin. We agreed to switch the medication to nighttime dosing and plan for follow-up labs in a few months to monitor progress. Patient Instructions - Continue taking rosuvastatin 5 mg, but switch to taking it at night. - Return for follow-up lab tests in a fe w months to check cholesterol levels. [facility] Medical History Physical exam Hyperlipidemia BPH (benign prostatic hyperplasia) Renal cyst, right Screening for colon cancer Chest discomfort Finger joint swelling Sliver Lipid disorder Screening PSA (prostate specific antigen) Epigastric pain Abdominal bloating Dyspepsia Chest pain Viral syndrome Chronic pain High cholesterol Surgical History Hx of endoscopy H/O colonoscopy Social History Housing: House Patient Tobacco Use Status: Former Tobacco user Years Smoked: 30 years ago e-Cigarette/Vaping Use: Never Used Second Hand Smoke Exposure: No service: No Current occupational status: employed 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 Current occupational exposures/hazards: No Cognitive needs: No Hearing needs: No Vision needs: No Questionnaire PHQ-9 Over the last 2 weeks, how often have you been bothered by any of the following problems? 1. Little interest or pleasure in doing things: not at all 2. Feeling down, depressed, or hopeless: not at all 3. Trouble falling or staying asleep, or sleeping too much: not at all 4. Feeling tired or having little energy: not at all 5. Poor appetite or overeating: not at all 6. Feeling bad about yourself - or that you are a failure or have let yourself or your family down: not at all 7. Trouble concentrating on things, such as reading the newspaper or watching television: not at all 8. Moving or speaking so slowly that other people could have noticed. Or the opposite - being so fidgety or restless that you have been moving around a lot more than usual: not at all 9. Thoughts that you would be better off or of hurting yourself in some way: not at all Total score: 0 Depression Screening Interpretation: Negative Depression Screening Done: Yes 12734 - PHQ-9 Billing: Yes Source: Developed by Drs. Gigi Chapman, Danii Erazo, Regis Urbina and colleagues, with an educational rosa from [employer]. Thrive Questionnaire Date Thrive assessed: 06/30/24 I am a: Patient What is your living situation today?: I choose not to answer this question Within the past 12 months, did the food you bought not last and you didn't have the money to get more?: I choose not to answer this question Within the past 12 months, did you worry whether your food would run out before you got money to buy more?: I choose not to answer this question Do you have trouble paying for medicines?: No Do you have trouble getting transportation to medical appointments?: I choose not to answer this question Do you have trouble paying your heating and electricity bill?: I choose not to answer this question Do you have trouble taking care of your child, family member or friend?: I choose not to answer this question Do you have trouble with day-to-day activities such as bathing, preparing meals, shopping, managing finances, etc.?: I choose not to answer this question Are you currently unemployed and looking for a job?: I choose not to answer this question Are you interested in more education?: I choose not to answer this question Please select the resources that you would like help with: None Currently or been in a relationship where the following occur: I choose not to answer THRIVE Score: 0 EFREN-7 AMB Questionnaire EFREN-7 Date EFREN - 7 assessed: 12/29/24 Feeling nervous, anxious, or on edge: 0 = Not at all Not being able to stop or control worryin = Not at all Worrying too much about different things: 0 = Not at all Trouble relaxin = Not at all Being so restless that it is hard to sit still: 0 = Not at all Becoming easily annoyed or irritable: 0 = Not at all Feeling afraid as if something awful might happen: 0 = Not at all Total EFREN-7 score (0-4 normal; 5-9 mild; 10-14 moderate; 15-21 severe): 0 Source: Developed by Drs. Ggii Chapman, Danii Erazo, Regis Urbina and colleagues, with an educational rosa from [employer]. EFREN-7 Assessment Billing EFREN-7 Assessment Tool: EFREN-7 Assessment 64516 Physical exam (Primary Care) Vital Signs: Last Vital Signs Pulse 63 12/29/24 15:55 Resp 16 12/29/24 15:55 BP 110/78 12/29/24 15:55 Pulse Ox 95 12/29/24 15:55 Oxygen Delivery Method Room Air 12/29/24 15:55 BMI result Body Mass Index 27.5 Tobacco/Smoking Status: Tobacco use Status Tobacco use date assessed 12/29/24 12/29/24 16:09 Patient Tobacco Use Status Former Tobacco user 12/29/24 16:09 e-Cigarette/Vaping Use Never Used 12/29/24 16:09 PHQ-9: PHQ-9 Score PHQ-9: Total score 0 12/29/24 16:09 Depression Screening Interpretation: Negative Thrive Assessment: Date of Thrive Assessment Date Thrive assessed 06/30/24 12/29/24 16:09 Currently or been in a relationship where the following occur: I choose not to answer Coding Level of Care Code Est Pt Level 3 (89935) Diagnoses HTN (hypertension), benign I10 Dyslipidemia E78.5 Additional Codes EFREN-7 Assessment Billing - EFREN-7 Assessment Tool: EFREN-7 Assessment 64211 ([id number]) PHQ-9 - 29912 - PHQ-9 Billing: Yes ([id number]) Assessment & Plan Assessment & Plan (1) HTN (hypertension), benign: Code(s): I10 - Essential (primary) hypertension Category: Medical (2) Dyslipidemia: Code(s): E78.5 - Hyperlipidemia, unspecified Category: Medical Plan . Orders: Orders Complete Blood Count Auto Diff Today E78.5 - Hyperlipidemia, unspecified, I10 - Essential (primary) hypertension TSH reflex Free T4 Today E78.5 - Hyperlipidemia, unspecified, I10 - Essential (primary) hypertension UA CC w/rflx Micro + Cult Today E78.5 - Hyperlipidemia, unspecified, I10 - Essential (primary) hypertension Lipid Panel Today E78.5 - Hyperlipidemia, unspecified, I10 - Essential (primary) hypertension Comprehensive [place]. Panel Fast Today E78.5 - Hyperlipidemia, unspecified, I10 - Essential (primary) hypertension
--- OUTSIDE RECORDS SUMMARY | 2024-12-29 15:55 | XMS_ITS | Clinical Summary ---
Author Organization [employer] Address [address] [place] [address] 7 [place] [address] Care Team Providers Care Clinical Radiologist Name Role Phone PcpCarolyn Unassigned Primary Care [...] Description 10/29/2024 10:00 AM EDT Office Visit [facility] [address] [place] [address] Becky Tapia LLD 10/28/2024 10:30 AM EDT Office Visit [facility] [address] [place] [address] Nancy Rico LLD Encounter for dental examination (Primary Dx) 10/14/2024 4:00 PM EDT Office Visit [facility] [address] [place] [address] Nancy Rico LLD Stage 2 grade B [...] Care Team (Late st Contact Info) Description 12/30/2024 10:30 AM EDT Office Visit [facility] [address] [place] [address] Becky Tapia LLD [address] [place] [address] 04/15/2025 4:00 PM EST Office Visit [facility] [address] [place] [address] Nancy Rico LLD [address] [place] [address] Health Maintenance Due Date Last Done Comments [...] - 2023- season) 2024 Influenza Vaccine (#1) 2025 Dental Oral Exam 04/17/2025 10/14/2024, , 09/27/2023, Additional history exists Dental Prophylaxis 04/17/2025 10/14/2024, 1 06/15/2023, 09/27/2023, Additional history exists Dental X-Ray: Full Mouth 08/31/2025 08/30/2022, 04/27 Dental X-Ray: Bitewings 10/15/2025 10/15/19, 09/27/2023, 08/30/2022, Additional history exists Tobacco Screening [...] DENTAL - HSN FULL (MEDICAID) Care Teams Clinical Radiologist Relationship Specialty Start Date End Date Carolyn Crouch Unassigned PCP - General Family Medicine 09/25/22
== END 2024-12-29 16:26 | disposition home or self-care (01) ==
LOC: HO.HMCC 15:54
PROVIDERS: PCP Nurse Practitioner Family; Visit Provider Nurse Practitioner Family
DX: I10 Essential (primary) hypertension (principal); E78.5 Hyperlipidemia, unspecified

== ENCOUNTER → 2024-12-29 15:53 | Outpatient (BNVA) | payer OTHER, SELFPAY | PROVIDERS: PCP Nurse Practitioner Family; Visit Provider Nurse Practitioner Family | DX: I10 Essential (primary) hypertension (principal); E78.5 Hyperlipidemia, unspecified | CPT/HCPCS: 96127; 99212 ==

== ENCOUNTER 2025-05-08 15:55 | Outpatient (AMB) | payer OTHER, SELFPAY ==
[2025-05-08 15:58] VITALS: BP 112/66; PULSE 65; BMI 28.2
--- NOTE | 2025-05-08 15:58 | A.OFFVIS_ITS ---
Vital Signs 05/08/25 15:58 Height 5 ft 9 in Weight 191 lb 2.252 oz BMI 28.2 BP 112/66 Blood Pressure Location Lt brachial Position Sitting Pulse 65 Intake Visit Reasons: gerd Intake Note: Ramin returns in follow up of GERD and to discuss colonoscopy. CC: Patient denies havng any GI symptoms today. 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 We will continue this. His rectal bleeding has been better, but he was given only hydrocortisone cream at the pharmacy, so we discuss OTC Preparation H Suppositories to use instead. He DID start the fiber and his stools are softer. ROV 6 mos. Medications: Refilled famotidine (Pepcid) 40 mg PO BEDTIME 30 tabs 6RF K21.9 - Gastro-esophageal reflux disease without esophagitis Discontinued hydrocortisone 2.5% (Proctosol HC) BE SURE TO INCLUDE RECTAL APPICATOR!! Discontinued Reason: Doctor's Order 1 appl [place] BID 30 grams 6RF hemorrhoids K64.9 - Unspecified hemorrhoids TODAY'S VISIT He had preferred the Suprep but did not clear well in the last colonoscopy so we are going to have to revert back to PEG/Dulcolax He denies any cardiac or respiratory problems. There are no prior problems with anesthesia or sedation. No ID problems. [facility] Medical History Physical exam Hyperlipidemia BPH (benign prostatic hyperplasia) Renal cyst, right Screening for colon cancer Chest discomfort Finger joint swelling Sliver Lipid disorder Screening PSA (prostate specific antigen) Epigastric pain Abdominal bloating Dyspepsia Chest pain Viral syndrome Chronic pain High cholesterol Surgical History Hx of endoscopy H/O colonoscopy Social History Housing: House Patient Tobacco Use Status: Former Tobacco user Years Smoked: 30 years ago e-Cigarette/Vaping Use: Never Used Second Hand Smoke Exposure: No service: No Current occupational status: employed 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 Current occupational exposures/hazards: No Cognitive needs: No Hearing needs: No Vision needs: No Review of Systems Const Denies fatigue, Denies fever(s), Denies night sweats, Denies poor appetite and Denies weight loss ENT Reports Normal hearing present, Denies dental pain, Denies dysphagia, Denies hearing loss, Denies mouth pain, Denies odynophagia, Denies throat swelling, Denies tongue swelling and Reports other (Dentition adequate) Card Reports no additional complaints Resp Reports no additional complaints GI Details: Denies abdominal pain, Denies melena, Reports bloating, Denies hematochezia, Denies constipation, Denies GI cramping, Denies dysphagia, Denies excessive flatus, Denies early satiety, Reports heartburn, Denies diarrhea, Denies nausea, Denies odynophagia, Denies vomiting and Denies hematemesis Skin/Breast Denies pruritus, Denies lesions, Denies rash and Denies jaundice Neuro Reports Normal hearing present and Denies Abnormal speech present Endo Denies fatigue Aller/Immun Denies throat swelling and Denies tongue swelling Physical Exam Vital Signs: Last Vital Signs Pulse 65 05/08/25 15:58 BP 112/66 05/08/25 15:58 BMI result Body Mass Index 28.2 Const General: cooperative, no acute distress, well developed and well groomed Nutritional Appearance: well nourished Orientation/consciousness: oriented to person, oriented to place and oriented to time Limitations: No language barrier HEENT Head: Yes normocephalic and Yes atraumatic Eyes General: appearance normal, both eyes and all related structures Pupils: Equal, round and reactive pupils present Neck Neck: Yes normal visual inspection and Yes no lymphadenopathy Thyroid: Thyroid normal Resp Effort & Inspection: normal respiratory effort and able to speak in complete sentences Auscultation: clear to auscultation bilaterally Cardio Rate: regular rate Rhythm: regular rhythm Heart sounds: Normal, physiologic split S2 sound present Peripheral pulses: radial pulses present and posterior tibial pulses present GI Inspection: No distended and No Abdominal panniculus present Palpation (GI): Soft to palpation, nontender, no guarding, not rigid and No hepatosplenomegaly present Percussion: Yes normal to percussion Auscultation: normal bowel sounds Rectal Exam - Male: Yes deferred Skin General skin exam: no rashes or lesions noted, turgor normal, skin not dry, no jaundice, No spider nevi and no striae Rashes: no rashes Nails: normal Neuro General: oriented to person, oriented to place and oriented to time Cranial nerves: Yes Equal, round and reactive pupils present and Yes Normal hearing present Speech: No Abnormal speech present Extrem General: Yes normal to inspection, No clubbing, No cyanosis and No edema Psych Appearance: grossly normal and well kempt Mental Status: mental status grossly normal Speech and movement: Slowed speech present (Psych) Affect: Indifferent affect present Attitude: cooperative Thought process: Circumstantial thought process present and not confabulating Thought content: Normal thought content present Insight: Limited insight present (Psych) Judgement: Limited judgement present (Psych) Results Reviewed Results Reviewed: Laboratory Tests 11/17/24 08:10 Estimated GFR > 60 Total Bilirubin 0.5 Direct Bilirubin 0.2 AST 32 ALT 30 Alkaline Phosphatase 53 Assessment & Plan Assessment & Plan (1) Tubular adenoma of colon: Comment: 06/2023 scope=insuff prep; 2018 scope repeat 5 years Code(s): D12.6 - Benign neoplasm of colon, unspecified Category: Medical (2) GERD (gastroesophageal reflux disease): Code(s): K21.9 - Gastro-esophageal reflux disease without esophagitis Category: Medical Plan His current therapy consists of famotidine, hemorrhoid cream and a fiber supplement. Subjective Patient follows up regarding heartburn and prior swallowing discomfort. He has been taking famotidine as needed but reports it ?dries me out? and the next day he feels pressure just below the ribcage, possibly bloating. These symptoms have been occurring for a while. He had been using a fiber supplement but slowed down because it led to very frequent bowel movements and constant leakage requiring repeated wiping. He otherwise has bowel movements twice daily (morning and after work) and feels he empties completely. He reports hemorrhoids are currently raw. He notes prior colonoscopy prep intolerance last year?able to finish the first dose but vomited with the second dose?leading to inadequate preparation. He prefers the two small-bottle prep that he tolerated previously. He reports being placed on a statin, with night dosing leading to missed doses and experiencing right wrist/hand pain that he feels worsens his arthritis. Past history includes hyperlipidemia treated with a statin and arthritis. Objective Assessment & Plan Heartburn: Ongoing heartburn with discomfort and bloating the day after taking famotidine as needed. - Switch from famotidine to omeprazole once daily; take in the morning if possible, but any consistent time of day is acceptable. - Monitor tolerance and symptom control. Hemorrhoids: Symptomatic with rawness; prior pharmacy substitution issue with prescribed cream. - Resend prescription for hemorrhoid cream as previously directed with refills. Colorectal cancer screening/colonoscopy preparation: Colonoscopy scheduled for July 24. Prior inadequate prep due to vomiting the second dose; patient tolerates the two small-bottle prep. - Proceed with scheduled colonoscopy on 07/24. - Use the tolerated two-bottle prep as directed. - Schedule follow-up approximately two weeks after the procedure to review results and any biopsy findings. Bowel habit concerns with fiber supplementation: Fiber previously caused excessive stool frequency and leakage; patient declined need for additional constipation medication. - Reasonable to reduce/hold fiber given symptoms. - No additional constipation medication at this time per patient preference. COLONOSCOPY Needs a 1 year repeat from his 06/2024 scope BIOPSY Medications: New hydrocortisone 2.5% (Proctosol HC) BE SURE TO INCLUDE RECTAL APPICATOR!! 1 appl [place] BID 30 grams 6RF hemorrhoids K64.9 - Unspecified hemorrhoids omeprazole 40 mg PO DAILY 30 caps 6RF 30 days K21.9 - Gastro-esophageal reflux disease without esophagitis Discontinued famotidine (Pepcid) Discontinued Reason: Doctor's Order 40 mg PO BEDTIME 30 tabs 6RF K21.9 - Gastro-esophageal reflux disease without esophagitis Coding Level of Care Code Est Pt Level 3 (06749) Diagnoses Tubular adenoma of colon D12.6 GERD (gastroesophageal reflux disease) K21.9
== END 2025-05-08 16:25 | disposition home or self-care (01) ==
LOC: HO.HGI 15:56
PROVIDERS: PCP Nurse Practitioner Family; Visit Provider Nurse Practitioner
DX: D12.6 Benign neoplasm of colon, unspecified (principal); K21.9 Gastro-esophageal reflux disease without esophagitis
CPT/HCPCS: 99213

== ENCOUNTER → 2025-05-08 15:55 | Outpatient (BNVA) | payer OTHER, SELFPAY | PROVIDERS: PCP Nurse Practitioner Family; Visit Provider Nurse Practitioner | DX: D12.6 Benign neoplasm of colon, unspecified (principal); K21.9 Gastro-esophageal reflux disease without esophagitis | CPT/HCPCS: 99212 ==